=== PATIENT | male | born 1950 ===

== ENCOUNTER 2016-10-17 12:32 | Emergency (ER) | payer MEDICAID ==
[2016-10-17] MEDS ORDERED: Oxycodone/Acetaminophen 5/325 mg Tab PO STA (13:00)
[2016-10-17] MEDS ORDERED: Lidocaine 5% Patch TD STA (13:00)
--- NOTE | 2016-10-17 13:03 | C.PDOC ---
History Of Present Illness 66 year old male who presents to the ER with a complaint of lower back pain that radiates to the right leg for the past 4 days. Patient reports having an accident 20 years ago to the same area that required surgery, however, he declined it. Patient states he has had only 2 minor episodes of pain since then that quickly resolved themselves. Denies any dysuria, weakness, or numbness. Time Seen by Provider: 10/17/16 12:59 Chief Complaint (Nursing): Back Pain History Per: Patient History/Exam Limitations: no limitations Onset/Duration Of Symptoms: Days Current Symptoms Are (Timing): Still Present Quality Of Discomfort: Unable To Describe Previous Symptoms: Prior Injury Associated Symptoms: None Exacerbating Factor(s): Other (Walking) Recent travel outside of the [place]: No Past Medical History Reviewed: Historical Data, Nursing Documentation, Vital Signs Vital Signs: Last Vital Signs Temp 97.6 F 10/17/16 13:39 Pulse 63 10/17/16 13:39 Resp 18 10/17/16 13:39 BP 209/91 H 10/17/16 13:39 Pulse Ox 100 10/17/16 13:39 - Medical History PMH: Asthma, HTN Surgical History: No Surg Hx Family History: States: Unknown Family Hx - Social History Hx Alcohol Use: Yes Hx Substance Use: No Review Of Systems Genitourinary: Negative for: Dysuria, Incontinence, Hematuria Musculoskeletal: Positive for: Back Pain, Leg Pain Neurological: Negative for: Weakness, Numbness Physical Exam - Physical Exam Appears: Non-toxic Skin: Normal Color, Warm, Dry Head: Atraumatic, Normacephalic Back: No CVA Tenderness, No Vertebral Tenderness, Paraspinal Tenderness (Right sided lumbar) Neurological/Psych: Oriented x3, Normal Speech, Normal Cognition ED Course And Treatment - Other Rad Lumbar spine x-ray X-Ray: Viewed By Me, Read By Radiologist Interpretation: PROCEDURE: Radiographs of the Lumbar Spine. HISTORY: low back pain. COMPARISON: None available. FINDINGS: BONES: Alignment appears satisfactory. No listhesis. Multilevel degenerative changes including prominent anterior osteophyte formation. Facet hypertrophy. No acute displaced fracture identified. DISC SPACES: Intervertebral disc space narrowing most prominent at L5-S1. OTHER FINDINGS: None. IMPRESSION: Degenerative changes. Progress Note: Lumbar spine x-ray ordered. Lidoderm patch applied. Percocet, Toradol, and Valium po ordered. Patient refused Toradol. On re-evaluation patient feels better and is stable to be d/c home with PMD follow up. Disposition - Disposition Referrals: Holly Rivera MD [Staff Provider] - Disposition: HOME/ ROUTINE Disposition Time: 13:52 Condition: STABLE Additional Instructions: Follow up with PMD within 1-2 days. Return to ED if feel worse. Prescriptions: Ibuprofen [Motrin Tab] 600 mg PO Q8 #30 tab oxyCODONE/Acetaminophen [Percocet 5/325 mg Tab] 1 tab PO QID PRN #20 tab PRN Reason: Pain diaZEpam [Valium] 2 mg PO TID #15 tab Instructions: Lumbar Radiculopathy (ED) Forms: [email or web address] (Maori) Print Language: TURKISH - Clinical Impression Clinical Impression: Lumbar radiculopathy - Scribe Statement The provider has reviewed the documentation as recorded by the Scribhadley Little All medical record entries made by the Scribe were at my direction and personally dictated by me. I have reviewed the chart and agree that the record accurately reflects my personal performance of the history, physical exam, medical decision making, and the department course for this patient. I have also personally directed, reviewed, and agree with the discharge instructions and disposition.
[2016-10-17] MEDS ORDERED: Oxycodone/Acetaminophen 5/325 mg Tab ONE (13:18)
[2016-10-17] MEDS ORDERED: Lidocaine 5% Patch TD ONE (13:18)
[2016-10-17 13:39] VITALS: BP 209/91; PULSE 63; RESP 18; TEMP 97.6; O2SAT 100
--- NOTE | 2016-10-17 14:25 | RAD ---
PROCEDURE: Radiographs of the Lumbar Spine. HISTORY: low back pain COMPARISON: None available. FINDINGS: BONES: Alignment appears satisfactory. No listhesis. Multilevel degenerative changes including prominent anterior osteophyte formation. Facet hypertrophy. No acute displaced fracture identified. DISC SPACES: Intervertebral disc space narrowing most prominent at L5-S1. OTHER FINDINGS: None. IMPRESSION: Degenerative changes.
== END 2016-10-17 14:08 | disposition home or self-care (01) ==
LOC: C.ER 12:32
DX: M54.16 Radiculopathy, lumbar region (principal)

== ENCOUNTER 2016-10-21 16:30 | Emergency (ER) | payer MEDICAID ==
[2016-10-21 16:43] VITALS: BP 209/95; PULSE 64; RESP 18; TEMP 97.4; O2SAT 97
--- NOTE | 2016-10-21 17:53 | C.PDOC ---
History Of Present Illness 10/21/2016 Fabian Rosales is a 66 y/o male whose PMH includes HTN and DM, presents to the ED complaining of low back pain that radiates down the right leg below the knee. Patient reports that due to the pain he is unable to ambulate normally or drive. Patient had been evaluated on 10/17/16 (4 days ago) in the ED, diagnosed with lumbar radiculopathy, and d/c home with benzodiazepine and Percocet medication. Patient notes the Percocet does not relieve the pain completely. He also states feeling anxious and nauseous with the pain. Patient denies fall, paresthesias, focal weakness, sensory deficit, fever, urinary retention or incontinence. Patient with full range of motion in affected extremity. Time Seen by Provider: 10/21/16 17:12 Chief Complaint (Nursing): Lower Extremity Problem/Injury History Per: Patient History/Exam Limitations: no limitations Onset/Duration Of Symptoms: Days Current Symptoms Are (Timing): Still Present Severity: Severe - Knee Currently Unable To: Other (ambulate normally ) Past Medical History Reviewed: Historical Data, Nursing Documentation, Vital Signs Vital Signs: Last Vital Signs Temp 97.4 F L 10/21/16 16:38 Pulse 64 10/21/16 16:38 Resp 18 10/21/16 16:38 BP 209/95 H 10/21/16 16:38 Pulse Ox 97 10/21/16 18:04 - Medical History PMH: Asthma, HTN Family History: States: Unknown Family Hx - Social History Hx Alcohol Use: Yes Hx Substance Use: No - Immunization History Hx Tetanus Toxoid Vaccination: No Hx Influenza Vaccination: No Hx Pneumococcal Vaccination: No Review Of Systems Except As Marked, All Systems Reviewed And Found Negative. Constitutional: Negative for: Fever Cardiovascular: Negative for: Chest Pain Respiratory: Negative for: Shortness of Breath Gastrointestinal: Positive for: Nausea. Negative for: Vomiting, Abdominal Pain Genitourinary: Negative for: Dysuria, Frequency Musculoskeletal: Positive for: Back Pain (lower back pain) Neurological: Negative for: Headache Psych: Positive for: Anxiety Physical Exam - Physical Exam Nose: Normal Cardiovascular: Rhythm Regular Respiratory: Normal Breath Sounds Gastrointestinal/Abdominal: Normal Exam Back: Normal Inspection Additional Physical Exam Comments: Constitutional: No acute distress. Head: Normocephalic. Atraumatic. Eyes: PERRL. ENT: Moist mucous membranes. Neck: Supple. Cardiovascular: Regular rate. Radial pulses 2+ bilaterally. Chest: No tenderness. Respiratory: Clear to auscultation bilaterally. GI: Soft. Nontender. Nondistended. Back: No CVA tenderness. No midline tenderness. Musculoskeletal: No tenderness or swelling of extremities. FROM. Skin: No rash. Neurologic: Alert, no focal deficit. Sensation on bilateral legs intact and in saddle area. Motor 5/5 x 4. ED Course And Treatment O2 Sat by Pulse Oximetry: 97 (room air) Pulse Ox Interpretation: Normal Medical Decision Making Medical Decision Makin10/21/2016 Impression: 66 y/o male with lower back pain that radiates down to the right leg. Plan: -- Urinalysis -- Toradol and Zofran -- Reassess and disposition Will discharge patient, stressed the importance of follow up for the patient's poorly controlled HTN, which is stable since last visit, and for further evaluation of his back pain. XR performed last visit, no further imaging indicated at this time. Disposition - Disposition Referrals: Holly Rivera MD [Staff Provider] - Disposition: HOME/ ROUTINE Disposition Time: 18:22 Condition: STABLE Prescriptions: Famotidine [Pepcid] 1 tab PO BID #14 tab Ibuprofen [Motrin] 600 mg PO Q6 #25 tab Methocarbamol [Robaxin-750] 1 tab PO Q8H #12 tablet Ondansetron ODT [Zofran ODT] 4 mg PO Q8 #12 odt Instructions: Lumbar Radiculopathy (ED) Forms: [employer] (Cuban) - Clinical Impression Clinical Impression: Lumbar radiculopathy - Scribe Statement The provider has reviewed the documentation as recorded by the Scribe 10/21/2016 Scribe Attestation: Neida Nair MD Scribe Attestation: All medical record entries made by the Scribe were at my direction and personally dictated by me. I have reviewed the chart and agree that the record accurately reflects my personal performance of the history, physical exam, medical decision making, and the department course for this patient. I have also personally directed, reviewed, and agree with the discharge instructions and disposition.
[2016-10-21 18:10] LABS: RBC URINE < 1 /hpf (0-3); URINE BILIRUBIN NEGATIVE (NEGATIVE); URINE BLOOD NEGATIVE (NEGATIVE); URINE COLOR Straw (YELLOW); URINE GLUCOSE (UA) NORMAL (Normal); URINE KETONE TRACE mg/dL (NEGATIVE); URINE LEUKOCYTE ESTERASE NEG Leu/uL (Negative); URINE PROTEIN NEGATIVE (NEGATIVE); URINE UROBILINOGEN NORMAL mg/dL (0.2-1.0); WBC URINE < 1 /hpf (0-5)
== END 2016-10-21 18:36 | disposition home or self-care (01) ==
LOC: C.ER 16:30
DX: M54.16 Radiculopathy, lumbar region (principal)
CPT/HCPCS: 81001; 96372; 99283; J1885

== ENCOUNTER 2016-11-03 16:23 | Emergency (ER) | payer MEDICAID ==
[2016-11-03 16:28] VITALS: RESP 20; TEMP 98.2
--- NOTE | 2016-11-03 16:33 | C.PDOC ---
History Of Present Illness 66M c/o left side abdominal pain intermittent for 10 days. +nausea no vomiting or diarrhea or fever or dysuria. reports taking tramadol for pain without relief. Time Seen by Provider: 11/03/16 16:32 Chief Complaint (Nursing): High Blood Pressure Past Medical History Vital Signs: Last Vital Signs Temp 98.2 F 11/03/16 16:26 Pulse 91 H 11/03/16 16:39 Resp 20 11/03/16 16:39 BP 155/94 H 11/03/16 16:39 Pulse Ox 100 11/03/16 18:36 - Medical History PMH: Asthma, HTN Family History: States: Other Other Family History: nc - Social History Hx Alcohol Use: Yes Hx Substance Use: No - Immunization History Hx Tetanus Toxoid Vaccination: No Hx Influenza Vaccination: No Hx Pneumococcal Vaccination: No Review Of Systems Constitutional: Negative for: Fever, Chills Cardiovascular: Negative for: Chest Pain Respiratory: Negative for: Cough, Shortness of Breath Gastrointestinal: Positive for: Nausea, Abdominal Pain. Negative for: Vomiting , Diarrhea, Melena, Hematochezia Genitourinary: Negative for: Dysuria Physical Exam - Physical Exam Appears: Non-toxic Skin: Warm, Dry Head: Atraumatic Nose: No Epistaxis Oral Mucosa: Moist Cardiovascular: Rhythm Regular Respiratory: No Decreased Breath Sounds, No Accessory Muscle Use, No Rales, No Rhonchi, No Wheezing Gastrointestinal/Abdominal: Bowel Sounds, Soft, Tenderness (diffuse mainly LLQ) , No Distention, No Guarding, No Rebound Neurological/Psych: Oriented x3, Other (no focal deficits) ED Course And Treatment - Laboratory Results Result Diagrams: 11/03/16 17:15 11/03/16 17:15 O2 Sat by Pulse Oximetry: 100 Medical Decision Making Medical Decision Making: ecg- nsr 87, non-specific t wave changes, no stemi 1834 pt now requesting to leave before CT done. risks of leaving were explained to him and it was explained he is leaving against medical advise. he refused to sign AMA paperwork. Disposition - Disposition Referrals: [facility] [Outside] Disposition: AGAINST MEDICAL ADVICE Disposition Time: 18:36 Condition: STABLE Instructions: Abdominal Pain (ED) Forms: Gen Discharge Inst Romanian, [employer] (Turkmen) Print Language: K[place]WAHILI - Clinical Impression Clinical Impression: Abdominal pain
[2016-11-03 16:40] VITALS: BP 155/94; PULSE 91
[2016-11-03] MEDS ORDERED: Sodium Chloride 0.9% 1,000 ML IV ONE (16:57)
[2016-11-03] MEDS ORDERED: Sodium Chloride 0.9% 1,000 ML ONE ×2 (17:17→17:24)
[2016-11-03 17:19] LABS: BASO # 0.1 K/uL (0.0-0.2); BASO % 0.7 % (0.0-2.0); EOS # 0.5 K/uL (0.0-0.7); EOS % 5.4 % (0.0-4.0); HEMATOCRIT 40.2 % (35.0-51.0); LYMPH # 2.2 K/uL (1.0-4.3); LYMPH % 23.1 % (20.0-40.0); MEAN CELL VOLUME 91.4 fL (80.0-94.0); MEAN CORPUSCULAR HEMOGLOBIN 31.3 pg (27.0-31.0); MEAN CORPUSCULAR HGB CONC 34.3 g/dL (33.0-37.0); MEAN PLATELET VOLUME 8.2 fL (7.2-11.7); MONO # 1.3 K/uL (0.0-0.8); MONO % 13.9 % (0.0-10.0); RED CELL DISTRIBUTION WIDTH 13.6 % (11.5-14.5); WHITE BLOOD COUNT 9.5 K/uL (4.8-10.8)
[2016-11-03] MEDS ORDERED: cefTRIAXone IV 1 gm in Dextros 50 ML IVPB ONE (17:24)
[2016-11-03 17:25] LABS: RBC URINE < 1 /hpf (0-3); URINE BACTERIA RARE (<OCC); URINE BILIRUBIN NEGATIVE (NEGATIVE); URINE BLOOD NEGATIVE (NEGATIVE); URINE COLOR Straw (YELLOW); URINE GLUCOSE (UA) NORMAL (Normal); URINE KETONE NEGATIVE (NEGATIVE); URINE LEUKOCYTE ESTERASE NEG Leu/uL (Negative); URINE PROTEIN NEGATIVE (NEGATIVE); URINE UROBILINOGEN NORMAL mg/dL (0.2-1.0); WBC URINE 1 /hpf (0-5)
[2016-11-03 17:27] VITALS: O2SAT 100
[2016-11-03 17:33] LABS: ALB/GLOB RATIO 1.5 (1.0-2.1); BILIRUBIN,TOTAL 0.4 mg/dL (0.2-1.3); CALCIUM 9.4 mg/dl (8.6-10.4); POTASSIUM 4.5 mmol/L (3.6-5.2); TOTAL PROTEIN 6.5 g/dL (6.3-8.3)
[2016-11-03 17:43] LABS: VENOUS BLOOD GAS BASE EXCESS 5.2 mmol/L (0.0-2.0); VENOUS BLOOD GAS PCO2 59 mmHg (40-60); VENOUS BLOOD PH 7.35 (7.32-7.43)
== END 2016-11-03 18:55 | disposition left against medical advice (07) ==
LOC: C.ER 16:23
DX: R10.32 Left lower quadrant pain (principal)
CPT/HCPCS: 36415; 80053; 81001; 82803; 82948; 83690; 85025; 96361; 96374; 96375; 99285; J1885; J2405; J7040

== ENCOUNTER 2016-11-14 09:47 | Inpatient (IN) | payer MEDICAID ==
[2016-11-14] MEDS ORDERED: Sodium Chloride 0.9% 1,000 ML IV ONE ×2 (10:09→10:10)
[2016-11-14] MEDS ORDERED: Sodium Chloride 0.9% 2,000 ML ONE (10:23)
--- NOTE | 2016-11-14 10:50 | C.PDOC ---
History Of Present Illness 66 y/o male brought in by ambulance with c/o abdominal pain and vomiting. Patient recently seen in this ER last month for similar complaints and left against medical advice. Patient reports history of diabetes and HTN. Otherwise, denies fever, chills, chest pain, SOB, diarrhea, urinary symptoms, or other complaints. Time Seen by Provider: 11/14/16 09:53 Chief Complaint (Nursing): Abdominal Pain History Per: Patient History/Exam Limitations: no limitations Onset/Duration Of Symptoms: Days Current Symptoms Are (Timing): Still Present Location Of Pain/Discomfort: Diffuse Radiation Of Pain To:: None Quality Of Discomfort: "Pain" Associated Symptoms: Vomiting. denies: Fever, Chills, Diarrhea, Urinary Symptoms Recent travel outside of the [place]: No Past Medical History Reviewed: Historical Data, Nursing Documentation, Vital Signs Vital Signs: Last Vital Signs Temp 101.4 F H 11/14/16 14:20 Pulse 110 H 11/14/16 14:20 Resp 22 11/14/16 14:20 BP 154/78 H 11/14/16 14:20 Pulse Ox 99 11/14/16 17:36 - Medical History PMH: Asthma, HTN Family History: States: Unknown Family Hx - Social History Hx Alcohol Use: Yes Hx Substance Use: No - Immunization History Hx Tetanus Toxoid Vaccination: No Hx Influenza Vaccination: No Hx Pneumococcal Vaccination: No Review Of Systems Except As Marked, All Systems Reviewed And Found Negative. Constitutional: Negative for: Fever, Chills Cardiovascular: Negative for: Chest Pain Respiratory: Negative for: Cough, Shortness of Breath, Wheezing Gastrointestinal: Positive for: Vomiting, Abdominal Pain. Negative for: Diarrhea Skin: Negative for: Rash Neurological: Negative for: Headache, Dizziness Physical Exam - Physical Exam Appears: Non-toxic, No Acute Distress Skin: Normal Color, Warm, Dry Head: Atraumatic, Normacephalic Oral Mucosa: Moist Chest: Symmetrical Cardiovascular: Rhythm Regular (tachy) Respiratory: Normal Breath Sounds, No Rales, No Rhonchi, No Wheezing Gastrointestinal/Abdominal: Soft, No Tenderness Back: Normal Inspection Extremity: Normal ROM, Capillary Refill (< 2 sec.) Neurological/Psych: Oriented x3, Normal Speech, Normal Cognition ED Course And Treatment - Laboratory Results Result Diagrams: 11/14/16 10:57 11/14/16 10:57 Lab Interpretation: Abnormal ECG: Interpreted By Me ECG Rhythm: Sinus Tachycardia Rate From EC O2 Sat by Pulse Oximetry: 99 (RA) Pulse Ox Interpretation: Normal - Radiology CXR: Viewed By Me, Read By Radiologist - Other Rad No standard instances Interpretation: IMPRESSION: Suspicious for right middle lobe pneumonia. Blunting of the right costophrenic angle could be due to small pleural effusion. - CT Scan/US No standard instances Other Rad Studies (CT/US): Read By Radiologist, Radiology Report Reviewed CT/US Interpretation: FINDINGS: LOWER THORAX: There are foci of airspace consolidation associated with adjacent infiltrate at the right middle lobe suspicious for pneumonia. There is a small right pleural effusion. LIVER: Unremarkable. No gross lesion or ductal dilatation. GALLBLADDER AND BILE DUCTS : The gallbladder is mildly distended. No CT evidence of acute cholecystitis. PANCREAS: Unremarkable. No gross lesion or ductal dilatation. SPLEEN: Unremarkable. ADRENALS: Unremarkable. No mass. KIDNEYS AND URETERS: Unremarkable. No hydronephrosis. No solid mass. VASCULATURE: Unremarkable. No aortic aneurysm. BOWEL: No obstruction. No gross mural thickening. Mild constipation is noted. APPENDIX: No evidence of appendicitis. PERITONEUM: Unremarkable. No free fluid. No free air. LYMPH NODES: Unremarkable. No enlarged lymph nodes. BLADDER: Nxqz-fw-keescjgj circumferential urinary bladder wall thickening. REPRODUCTIVE: Czkbma-bb-fhilklquyy enlarged prostate. BONES: No acute fracture. OTHER FINDINGS: None. IMPRESSION: Foci of airspace consolidation and infiltrates noted at the right middle lobe associated with small right pleural effusion likely representing pneumonia. No evidence of nephrolithiasis or hydronephrosis. Mild to moderate urinary bladder wall thickening. Moderately enlarged prostate. Mild constipation. Progress Note: Treated with Pepcid, Zofran, morphine ivp, and IVFs. Bloodwork, UA, CxR, and CT abdomen/pelvis ordered. Treated with ativan IV for agitiation. Treated with rocephin and zithromax IV. Treated with labatolol 20 mg IV for hypertension. Additional Ativan 1 mg IV for aggitation. Tylenol 650 mg PO for fever. On re-evaluation lungs clear Reassessment Condition: Improved - Physician Consult Information Physician Contacted: Roberth Reid Outcome Of Conversation: admit Medical Decision Making Medical Decision Making: Patients daughter call and reported that patient was recently discharged from [facility] [place] pain On re-evaluation lungs clear, abdomen soft Disposition Discussed With DrJuan: Allen Reid Doctor Will See Patient In The: Hospital - Disposition Disposition: HOSPITALIZED Disposition Time: 13:30 Condition: STABLE - POA Present On Arrival: None - Clinical Impression Clinical Impression: Vomiting, Abdominal pain, Pneumonia - 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 - Scribe Statement The provider has reviewed the documentation as recorded by the Scribe SM All medical record entries made by the Scribe were at my direction and personally dictated by me. I have reviewed the chart and agree that the record accurately reflects my personal performance of the history, physical exam, medical decision making, and the department course for this patient. I have also personally directed, reviewed, and agree with the discharge instructions and disposition. Decision To Admit - Pt Status Changed To: Hospital Disposition Of: Inpatient - Admit Certification Admit to Inpatient:: After my assessment, the patient will require hospitalization for at least two midnights. This is because of the severity of symptoms shown, intensity of services needed, and/or the medical risk in this patient being treated as an outpatient. - InPatient: Physician Admission Certification:: Pneumonia. Tachycardia. Hypertension - . Bed Request Type: Regular Admitting Physician: Allen Reid Patient Diagnosis: Vomiting, Abdominal pain, Pneumonia
[2016-11-14 11:05] LABS: BASO % 0.2 % (0.0-2.0); EOS # 0.1 K/uL (0.0-0.7); EOS % 0.7 % (0.0-4.0); HEMATOCRIT 42.2 % (35.0-51.0); LYMPH # 0.8 K/uL (1.0-4.3); LYMPH % 3.9 % (20.0-40.0); MEAN CELL VOLUME 90.7 fL (80.0-94.0); MEAN CORPUSCULAR HEMOGLOBIN 30.4 pg (27.0-31.0); MEAN CORPUSCULAR HGB CONC 33.5 g/dL (33.0-37.0); MEAN PLATELET VOLUME 7.9 fL (7.2-11.7); MONO # 1.4 K/uL (0.0-0.8); PLATELET COUNT 273 K/uL (130-400); RED CELL DISTRIBUTION WIDTH 13.1 % (11.5-14.5)
[2016-11-14] MEDS ORDERED: Morphine 4 MG/ML VIAL ONE (11:07)
[2016-11-14 11:12] LABS: CHLORIDE 95 mmol/L (98-107); POTASSIUM 4.4 mmol/L (3.6-5.2); SODIUM 136 mmol/L (132-148)
[2016-11-14 11:13] LABS: WHITE BLOOD COUNT 19.6 K/uL (4.8-10.8)
[2016-11-14 11:14] LABS: ALB/GLOB RATIO 1.4 (1.0-2.1); ALKALINE PHOSPHATASE 60 U/L (38-126); AST/SGOT 21 U/L (17-59); BILIRUBIN,TOTAL 1.4 mg/dL (0.2-1.3); BLOOD UREA NITROGEN 8 mg/dL (9-20); CARBON DIOXIDE 28 mmol/L (22-30); GFR AFRICAN-AMERICAN > 60; TOTAL PROTEIN 7.5 g/dL (6.3-8.3)
[2016-11-14 11:15] LABS: ALT/SGPT 32 U/L (21-72); CALCIUM 9.3 mg/dl (8.6-10.4); GLUCOSE,RANDOM 213 mg/dL (75-110)
[2016-11-14 11:29] LABS: RBC URINE < 1 /hpf (0-3); URINE BACTERIA RARE (<OCC); URINE BILIRUBIN NEGATIVE (NEGATIVE); URINE BLOOD NEGATIVE (NEGATIVE); URINE COLOR Yellow (YELLOW); URINE GLUCOSE (UA) 1+ mg/dL (Normal); URINE HYALINE CAST 0-2 /lpf (0-2); URINE KETONE 1+ mg/dL (NEGATIVE); URINE LEUKOCYTE ESTERASE 1+ Leu/uL (Negative); URINE PROTEIN NEGATIVE (NEGATIVE); WBC URINE 1 /hpf (0-5)
--- NOTE | 2016-11-14 12:17 | CT ---
PROCEDURE: CT Abdomen and Pelvis without intravenous contrast HISTORY: Pain COMPARISON: None. TECHNIQUE: Axial and reformatted coronal and sagittal CT images of the abdomen and pelvis were obtained without IV or oral contrast administration.. Contrast Dose: 0 Radiation dose: Total exam DLP = 349.35 mGy-cm. This CT exam was performed using one or more of the following dose reduction techniques: Automated exposure control, adjustment of the mA and/or kV according to patient size, and/or use of iterative reconstruction technique. FINDINGS: LOWER THORAX: There are foci of airspace consolidation associated with adjacent infiltrate at the right middle lobe suspicious for pneumonia. There is a small right pleural effusion. LIVER: Unremarkable. No gross lesion or ductal dilatation. GALLBLADDER AND BILE DUCTS: The gallbladder is mildly distended. No CT evidence of acute cholecystitis. PANCREAS: Unremarkable. No gross lesion or ductal dilatation. SPLEEN: Unremarkable. ADRENALS: Unremarkable. No mass. KIDNEYS AND URETERS: Unremarkable. No hydronephrosis. No solid mass. VASCULATURE: Unremarkable. No aortic aneurysm. BOWEL: No obstruction. No gross mural thickening. Mild constipation is noted. APPENDIX: No evidence of appendicitis. PERITONEUM: Unremarkable. No free fluid. No free air. LYMPH NODES: Unremarkable. No enlarged lymph nodes. BLADDER: Tvnw-mk-jvqfixcy circumferential urinary bladder wall thickening. REPRODUCTIVE: Vzygeb-xu-lierzvfhca enlarged prostate. BONES: No acute fracture. OTHER FINDINGS: None. IMPRESSION: Foci of airspace consolidation and infiltrates noted at the right middle lobe associated with small right pleural effusion likely representing pneumonia. No evidence of nephrolithiasis or hydronephrosis. Mild to moderate urinary bladder wall thickening. Moderately enlarged prostate. Mild constipation.
--- NOTE | 2016-11-14 12:21 | RAD ---
PROCEDURE: CHEST RADIOGRAPH, 1 VIEW HISTORY: Cough r/o CHF COMPARISON: None available. FINDINGS: LUNGS: Focal infiltrate and small opacity seen at the right middle lobe suspicious for pneumonia. PLEURA: Blunting of the right costophrenic angle. CARDIOVASCULAR: Normal. OSSEOUS STRUCTURES: No significant abnormalities. VISUALIZED UPPER ABDOMEN: Normal. OTHER FINDINGS: None. IMPRESSION: Suspicious for right middle lobe pneumonia. Blunting of the right costophrenic angle could be due to small pleural effusion.
[2016-11-14 12:22] LABS: NEUTROPHIL 88 % (50-75); TOTAL CELLS COUNTED 100
[2016-11-14] MEDS ORDERED: cefTRIAXone IV 1 gm in Dextros 50 ML IV ONE (12:59)
[2016-11-14] MEDS ORDERED: Azithromycin 500mg/250ML NS 500 MG/250 ML BAG IV ONE (13:00)
[2016-11-14] MEDS ORDERED: Labetalol 25mg/5ml Syringe IV STA (13:20)
[2016-11-14] MEDS ORDERED: cefTRIAXone IV 1 gm in Dextros 50 ML IVPB ONE (13:36)
[2016-11-14] MEDS ORDERED: Labetalol 25mg/5ml Syringe ONE (13:36)
[2016-11-14] MEDS ORDERED: Azithromycin 500mg/250ML NS 500 MG/250 ML BAG IVPB ONE (14:14)
--- NOTE | 2016-11-14 15:36 | CP.PCM.HP ---
History of Present Illness - History of Present Illness History of Present Illness: CC: Abdominal pain, nausea, and right leg pain HPI: Patient is a 66 y/o male with pmhx of DM, HTN, asthma, and increased PSA who presents to the ED for abdominal pain, right leg pain, and nausea. Patient was hospitalized at [facility] about 1 week ago for about 3 days for this same pain. According to patient's sister (who was spoken to over the phone), he was discharged only on a pain medication. Patient is a very poor historian. He is agitated and does not respond to many questions or responds " I don't know. " Patient's son is at bedside who helps provide some information. Patient lives alone, however, so son does not know details about what has been going on with his health. Patient says he has been having abdominal pain for about 2 weeks. This past week patient had a few episodes of vomiting and two episodes of vomiting today. Patient currently still feels nauseous. Patient is complaining of right leg pain which he has had for a while, but cannot quantify for how long. Patient keeps trying to get out of bed with his oxygen and pulling on his lines. Patient not cooperative. Patient says he needs to go to the bathroom but seems confused when I explain to him to urinate in the urinal container. Son and I help patient urinate in container. Patient admits to having pain with urination. Patient will not lay flat and keeps moving around the bed. Patient denies having any fever, chills, cough, diarrhea, constipation, or sick contacts. PMD: Dr. Singh PMHx: DM, HTN, asthma, and increased PSA, family denies that patient has ever had heart problems including heart attack and stroke Psurg: Famhx: son has htn and diabetes Social: as per son patient smokes cigarettes, patient denies drugs and alcohol Home Meds: Pantoprazole 40mg PO daily Metformin HCL 500mg PO q12h HCTZ 12.5mg PO daily Oxycodone HCL tab 10mg PO q6h PRN Xanax 1mg PO daily Lisinopril 20mg daily Amylodipine 10mg PO daily Flomax 0.4mg PO daily Ventolin inhaler Motrin 600mg PO TID Present on Admission - Present on Admission Any Indicators Present on Admission: No History of DVT/PE: No History of Uncontrolled Diabetes: Yes Urinary Catheter: No Decubitus Ulcer Present: No Review of Systems - Review of Systems Systems not reviewed;Unavailable: Uncooperative, Language Barrier - Constitutional Constitutional: absent: Chills, Fever - EENT Nose/Mouth/Throat: absent: Nasal Congestion, Sore Throat - Cardiovascular Cardiovascular: absent: Chest Pain, Dyspnea - Respiratory Respiratory: absent: Cough - Gastrointestinal Gastrointestinal: Abdominal Pain. absent: Constipation, Diarrhea - Genitourinary Genitourinary: Difficulty Urinating, Dysuria, Urinary Hesitance - Musculoskeletal Musculoskeletal: Back Pain. absent: Joint Swelling, Muscle Weakness - Integumentary Integumentary: absent: Changing Lesions - Psychiatric Psychiatric: Confusion - Hematologic/Lymphatic Hematologic: absent: Easy Bleeding, Easy Bruising Past Patient History - Past Social History Smoking Status: Light Smoker < 10 Cigarettes Daily - CARDIAC Hx Hypertension: Yes - PULMONARY Hx Asthma: Yes - ENDOCRINE/METABOLIC Hx Diabetes Mellitus Type 2: Yes - MUSCULOSKELETAL/RHEUMATOLOGICAL Hx Back Pain: Yes - PSYCHIATRIC Hx Substance Use: No - SURGICAL HISTORY Hx Surgeries: No - ANESTHESIA Hx Anesthesia: No Hx Anesthesia Reactions: No Meds Allergies/Adverse Reactions: Allergies Allergy/AdvReac Type Severity Reaction Status Date / Time No Known Allergies Allergy Verified 11/14/16 09:56 Physical Exam - Constitutional Appears: Non-toxic, Agitated, Confused - Head Exam Head Exam: ATRAUMATIC, NORMAL INSPECTION, NORMOCEPHALIC - Eye Exam Eye Exam: EOMI, Normal appearance - ENT Exam ENT Exam: Mucous Membranes Moist - Neck Exam Neck exam: Positive for: Normal Inspection. Negative for: Tenderness - Respiratory Exam Respiratory Exam: Wheezes, NORMAL BREATHING PATTERN. absent: Rhonchi - Cardiovascular Exam Cardiovascular Exam: Tachycardia, REGULAR RHYTHM - GI/Abdominal Exam GI & Abdominal Exam: Normal Bowel Sounds, Soft Additional comments: left ecchymosis on abdomen - Extremities Exam Extremities exam: Positive for: full ROM, normal inspection. Negative for: pedal edema - Neurological Exam Neurological exam: Alert - Psychiatric Exam Psychiatric exam: Agitated, Anxious - Skin Skin Exam: Intact, Normal Color, Warm Results - Vital Signs Recent Vital Signs: Last Vital Signs Temp 101.4 F H 11/14/16 14:20 Pulse 110 H 11/14/16 14:20 Resp 22 11/14/16 14:20 BP 154/78 H 11/14/16 14:20 Pulse Ox 94 L 11/14/16 14:20 - Labs Result Diagrams: 11/14/16 10:57 11/14/16 10:57 Labs: Laboratory Results - last 24 hr 11/14/16 11/14/16 11/14/16 10:57 10:57 10:57 WBC 19.6 H D RBC 4.65 Hgb 14.1 Hct 42.2 MCV 90.7 MCH 30.4 MCHC 33.5 RDW 13.1 Plt Count 273 MPV 7.9 Neut % (Auto) 88.2 H Lymph % (Auto) 3.9 L [place] % (Auto) 7.0 Eos % (Auto) 0.7 Baso % (Auto) 0.2 Neut # 17.3 H Lymph # 0.8 L [place] # 1.4 H Eos # 0.1 Baso # 0.0 Neutrophils % (Manual) 88 H Lymphocytes % (Manual) 5 L Monocytes % (Manual) 7 Platelet Estimate Normal RBC Morphology Normal Sodium 136 Potassium 4.4 Chloride 95 L Carbon Dioxide 28 Anion Gap 17 BUN 8 L Creatinine 1.0 Est GFR ( Amer) > 60 Est GFR (Non-Af Amer) > 60 Random Glucose 213 H Lactic Acid Calcium 9.3 Total Bilirubin 1.4 H AST 21 ALT 32 Alkaline Phosphatase 60 CK-MB (Mass) 1.57 Troponin I < 0.0120 Total Protein 7.5 Albumin 4.3 Globulin 3.1 Albumin/Globulin Ratio 1.4 Lipase 34 Urine Color Yellow Urine Clarity Clear Urine pH 7.0 Ur Specific [place] 1.011 Urine Protein Negative Urine Glucose (UA) 1+ H Urine Ketones 1+ H Urine Blood Negative Urine Nitrate Negative Urine Bilirubin Negative Urine Urobilinogen 2.0 Ur Leukocyte Esterase 1+ H Urine WBC (Auto) 1 Urine RBC (Auto) < 1 Ur Squamous Epith Cells 1 Urine Bacteria Rare Hyaline Casts 0-2 11/14/16 11:20 WBC RBC Hgb Hct MCV MCH MCHC RDW Plt Count MPV Neut % (Auto) Lymph % (Auto) [place] % (Auto) Eos % (Auto) Baso % (Auto) Neut # Lymph # [place] # Eos # Baso # Neutrophils % (Manual) Lymphocytes % (Manual) Monocytes % (Manual) Platelet Estimate RBC Morphology Sodium Potassium Chloride Carbon Dioxide Anion Gap BUN Creatinine Est GFR ( Amer) Est GFR (Non-Af Amer) Random Glucose Lactic Acid 1.0 Calcium Total Bilirubin AST ALT Alkaline Phosphatase CK-MB (Mass) Troponin I Total Protein Albumin Globulin Albumin/Globulin Ratio Lipase Urine Color Urine Clarity Urine pH Ur Specific [place] Urine Protein Urine Glucose (UA) Urine Ketones Urine Blood Urine Nitrate Urine Bilirubin Urine Urobilinogen Ur Leukocyte Esterase Urine WBC (Auto) Urine RBC (Auto) Ur Squamous Epith Cells Urine Bacteria Hyaline Casts Assessment & Plan - Assessment and Plan (Free Text) Assessment: 1. Sepsis secondary to right middle lobe pneumonia -Rocephin 1 mg iv daily -Azithromycin 500 mg IV daily -stat Rapid influenza -urine legionella AG -urine strep pneumo AG -serum mycoplasma IgM and IgG 2. Possible UTI -urine culture -UA showed: 1+ gluc, 1+ketones, 1+leuk est 3. Possible Gastroparesis -CT abd/ pelvis showed no acute pathology, did show mild constipation -Colace 100 mg po TID -GI Dr. Stallings consulted, help appreciated 4. Enlarged Prostate -PSA -Flomax .4 mg -Urology, 5. DM2 -HgA1C -Lipid Panel -TSH -T4 -Metformin 500 mg po BID -Regular ISS -Accuchecks ACHS -Dietary diabetic counseling 6. HTN -Lisinopril 10 mg po daily -Norvasc 5 mg po daily 7. Diabetic Neuropathy -Gabapentin 300mg PO TID 8. GERD -protonix 40 mg po daily 9. Questionable Asthma -Atrovent q6h prn sob 10. Prophylaxis -protonix as above -heparin 5000 u sc q12h -b/l scds -heart healthy diabetic diet
[2016-11-14] MEDS: (Novolin R) Insulin Human Regular 100 units/ml vial SC SCH ×2 (17:44→21:56)
[2016-11-14] MEDS: Pantoprazole 40 mg EC Tab PO SCH (17:46)
--- NOTE | 2016-11-14 21:16 | CP.PCM.PN ---
Subjective - Date & Time of Evaluation Date of Evaluation: 11/14/16 Time of Evaluation: 07:00 - Subjective Subjective: dictated Objective - Vital Signs/Intake and Output Vital Signs (last 24 hours): Temp Pulse Resp BP Pulse Ox 101.4 F H 110 H 22 154/78 H 99 11/14/16 14:20 11/14/16 14:20 11/14/16 14:20 11/14/16 14:20 11/14/16 17:41 - Medications Medications: Current Medications Amlodipine Besylate (Norvasc) 5 mg PO DAILY [facility] Last Admin: 11/14/16 17:39 Dose: 5 mg Docusate Sodium (Colace) 100 mg PO TID [facility] Last Admin: 11/14/16 17:40 Dose: 100 mg Gabapentin (Neurontin) 300 mg PO TID [facility] Last Admin: 11/14/16 17:40 Dose: 300 mg Heparin Sodium (Porcine) (Heparin) 5,000 units SC Q12 [facility] Ceftriaxone Sodium 1 gm/ (Sodium Chloride) 100 mls @ 100 mls/hr IVPB DAILY [facility] Azithromycin 500 mg/ Sodium (Chloride) 250 mls @ 250 mls/hr IVPB DAILY [facility] Insulin Human Regular (Novolin R) 0 unit SC ACHS [facility] PRN Reason: Protocol Last Admin: 11/14/16 17:44 Dose: 2 unit Lisinopril (Zestril) 10 mg PO DAILY [facility] Last Admin: 11/14/16 17:40 Dose: 10 mg Metformin HCl (Glucophage) 500 mg PO BIDCC [facility] Last Admin: 11/14/16 17:40 Dose: 500 mg Pantoprazole Sodium (Protonix Ec Tab) 40 mg PO DAILY [facility] Last Admin: 11/14/16 17:46 Dose: 40 mg Tamsulosin HCl (Flomax) 0.4 mg PO Q24H [facility] Last Admin: 11/14/16 17:39 Dose: 0.4 mg - Labs Labs: 11/14/16 10:57 11/14/16 10:57
[2016-11-14] MEDS: Cefepime IV 2 gm in Dextrose 2 GM/100 ML BAG IVPB SCH (22:03)
--- NOTE | 2016-11-15 04:51 | CON ---
DATE: INFECTIOUS DISEASE CONSULTATION REQUESTED BY: Dr. Allen Reid. HISTORY OF PRESENT ILLNESS: This patient is a 66-year-old male, who is admitted with abdominal pain, nausea, and right leg pain, but I am told that he has pneumonia and the patient is very confused and he is anxious, however and looks incoherent. The son says that he was in the hospital for three days in [facility] and he is being monitored now. He does have a history of hypertension, asthma, high PSA, and family does not know much about him, looks like not able to get anything much from them. FAMILY HISTORY: Significant for diabetes and hypertension. SOCIAL HISTORY: The patient smokes cigarette and no drug abuse or alcohol abuse, but he appears to be in delirium, confused, and agitated. MEDICATIONS: His medications are pantoprazole, metformin, hydrochlorothiazide, oxycodone, Xanax, lisinopril, amlodipine, Flomax, Ventolin, and Motrin. REVIEW OF SYSTEMS: Unable to obtain with the patient. He is uncooperative. He has no chills and no fever reported, and he came in with abdominal pain, difficulty urinating, dysuria, and has pneumonia. PHYSICAL EXAMINATION: VITAL SIGNS: On examination, his T-max is 101.4, heart rate is 110, blood pressure is 154/78, respirations are 22, and saturation is 94%. HEENT: Head is atraumatic, normocephalic. He is, however, confused, agitated, jittering, and unsteady. Eye movements are unremarkable. Tongue is moist. He is not following much commands. NECK: However, supple. JVP is flat. LUNGS: Decreased breath sounds bilaterally. HEART: S1 and S2, is tachycardic. ABDOMEN: Soft and nontender. No guarding, no rigidity present. EXTREMITIES: Have no edema, clubbing, or cyanosis at this time. LABORATORY DATA: Labs are noted. White count is 19.6, hemoglobin 14.1, hematocrit 42.2, platelet count is 253. Sodium is 136, potassium 4.4, BUN is 8, creatinine is 1, and glucose is 213. He had abdominal CT and a chest CT and the chest x-ray showed suspicious for right middle lobe pneumonia, blunting of the right costophrenic angle, could be due to small effusions, he may have pneumonia. His abdominal and pelvic CAT scan shows [id number] urinary bladder wall thickening, moderately enlarged prostate and shows foci of airspace consolidation and infiltrates noted in the right middle lobe and no evidence of nephrolithiasis or hydronephrosis. At this time, we will do a septic workup and we will put him on Maxipime and Zithromax as he has been to the other hospital and we will follow with the residents and we will repeat labs tomorrow, also the lactate level if not done. UA was negative except for leukocytes of 1+. His benzodiazepines and opiates came out positive, may be he is on those. The flu is negative. Urine legionella is negative. So, at this time, we will continue with Maxipime and Zithromax as he comes from another hospital. Tracey Nguyễn MD
[2016-11-15] MEDS: (Novolin R) Insulin Human Regular 100 units/ml vial SC SCH ×6 (07:17→22:18)
[2016-11-15 07:56] LABS: BASO # 0.2 K/uL (0.0-0.2); BASO % 0.6 % (0.0-2.0); EOS # 0.1 K/uL (0.0-0.7); EOS % 0.5 % (0.0-4.0); HEMATOCRIT 38.4 % (35.0-51.0); LYMPH # 1.6 K/uL (1.0-4.3); LYMPH % 5.9 % (20.0-40.0); MEAN CELL VOLUME 91.2 fL (80.0-94.0); MEAN CORPUSCULAR HEMOGLOBIN 31.1 pg (27.0-31.0); MEAN CORPUSCULAR HGB CONC 34.2 g/dL (33.0-37.0); MEAN PLATELET VOLUME 8.6 fL (7.2-11.7); MONO # 2.4 K/uL (0.0-0.8); NRBC % 0.1 % (0.0-2.0); PLATELET COUNT 232 K/uL (130-400); RED CELL DISTRIBUTION WIDTH 13.3 % (11.5-14.5); WHITE BLOOD COUNT 27.2 K/uL (4.8-10.8)
[2016-11-15 08:12] LABS: CHLORIDE 100 mmol/L (98-107); POTASSIUM 3.7 mmol/L (3.6-5.2); SODIUM 141 mmol/L (132-148)
[2016-11-15 08:14] LABS: CARBON DIOXIDE 26 mmol/L (22-30); CHOLESTEROL 97 mg/dL (0-199); GFR AFRICAN-AMERICAN > 60
[2016-11-15 08:15] LABS: ALB/GLOB RATIO 1.3 (1.0-2.1); ALKALINE PHOSPHATASE 53 U/L (38-126); ALT/SGPT 30 U/L (21-72); AST/SGOT 20 U/L (17-59); BILIRUBIN,TOTAL 0.9 mg/dL (0.2-1.3); BLOOD UREA NITROGEN 8 mg/dL (9-20); GLUCOSE,RANDOM 176 mg/dL (75-110); TOTAL PROTEIN 6.5 g/dL (6.3-8.3)
[2016-11-15 08:47] LABS: NEUTROPHIL 72 % (50-75); TOTAL CELLS COUNTED 100
[2016-11-15 09:00] LABS: THYROID STIMULATING HORMONE 1.08 mIU/L (0.46-4.68)
--- NOTE | 2016-11-15 09:12 | CP.PCM.CON ---
<Melanie Garcia - Last Filed: 11/15/16 11:56> History of Present Illness - History of Present Illness History of Present Illness: GI Fellow PGY4 Consult Note This is a 66yM with pmhx of DM, HTN, asthma, and elevated PSA who presented to the ED for abdominal pain, right leg pain, and nausea. Patient is a very poor historian. Patient's son is at bedside who helps provide some information. Patient seems confused at times and in unable to understand or answer questions. Per review of EMR and son at bedside, pt has been feeling a little nausea for a few days with some cough, difficulty with urination. Pt's son reports BG is somewhat controlled with BG ranging from 150-190 at times, pt does take his metformin,. No prior hx of gastroparesis, no issues with diet in terms of nausea or vomiting. At the time of evaluation pt is complaining about right sided rib pain. [place] [facility] [place] Patient denies having any fever, chills, cough, diarrhea, constipation, or sick contacts. Denies prior endoscopic evaluation. ROS: A 12pt ROS was obtained and was negative except as above PmHx: DM, HTN, asthma, and elevated PSA PsHx: Denies FHx: HTN and diabetes SHx: Smokes cigarettes, patient denies drugs and alcohol Past Patient History - Past Medical History & Family History Past Medical History?: Yes - Past Social History Smoking Status: Light Smoker < 10 Cigarettes Daily - CARDIAC Hx Hypertension: Yes - PULMONARY Hx Asthma: Yes - ENDOCRINE/METABOLIC Hx Diabetes Mellitus Type 2: Yes - MUSCULOSKELETAL/RHEUMATOLOGICAL Hx Back Pain: Yes - PSYCHIATRIC Hx Substance Use: No - SURGICAL HISTORY Hx Surgeries: No - ANESTHESIA Hx Anesthesia: No Hx Anesthesia Reactions: No Meds Allergies/Adverse Reactions: Allergies Allergy/AdvReac Type Severity Reaction Status Date / Time No Known Allergies Allergy Verified 11/14/16 09:56 - Medications Medications: Current Medications Acetaminophen (Tylenol 325mg Tab) 650 mg PO Q6 PRN PRN Reason: Fever >100.4 F Amlodipine Besylate (Norvasc) 5 mg PO BID [facility] Docusate Sodium (Colace) 100 mg PO TID [facility] Last Admin: 11/14/16 17:40 Dose: 100 mg Finasteride (Proscar) 5 mg PO DAILY [facility] Gabapentin (Neurontin) 300 mg PO TID [facility] Last Admin: 11/14/16 17:40 Dose: 300 mg Heparin Sodium (Porcine) (Heparin) 5,000 units SC Q12 [facility] Azithromycin 500 mg/ Sodium (Chloride) 250 mls @ 250 mls/hr IVPB DAILY [facility] Cefepime HCl (Maxipime Iv 2 Gm Premix) 2 gm in 100 mls @ 100 mls/hr IVPB Q12H [facility] Last Admin: 11/14/16 22:03 Dose: 100 mls/hr Insulin Human Regular (Novolin R) 0 unit SC ACHS [facility] PRN Reason: Protocol Last Admin: 11/14/16 21:56 Dose: Not Given Ipratropium Forman (Atrovent) 0.5 mg IH RQ6 PRN PRN Reason: Shortness of Breath Lisinopril (Zestril) 10 mg PO DAILY [facility] Last Admin: 11/14/16 17:40 Dose: 10 mg [facility] Last Admin: 11/15/16 08:11 Dose: 500 mg Pantoprazole Sodium (Protonix Ec Tab) 40 mg PO DAILY [facility] Last Admin: 11/14/16 17:46 Dose: 40 mg Saccharomyces Boulardii (Florastor) 250 mg PO BID [facility] Tamsulosin HCl (Flomax) 0.4 mg PO Q24H [facility] Last Admin: 11/14/16 17:39 Dose: 0.4 mg Physical Exam - Constitutional Appears: No Acute Distress, Older Than Stated Age, Confused - Head Exam Head Exam: ATRAUMATIC, NORMAL INSPECTION, NORMOCEPHALIC - Eye Exam Eye Exam: EOMI, Normal appearance, PERRL Pupil Exam: PERRL - ENT Exam ENT Exam: Mucous Membranes Moist, Normal Exam - Neck Exam Neck exam: Positive for: Normal Inspection - Respiratory Exam Respiratory Exam: Rhonchi Additional comments: TTP Right ribcage - Cardiovascular Exam Cardiovascular Exam: RRR, +S1, +S2 - GI/Abdominal Exam GI & Abdominal Exam: Normal Bowel Sounds, Soft. absent: Distended, Firm, Organomegaly, Rigid, Tenderness Additional comments: no RUQ TTP, pain on the lower right ribcage - Rectal Exam Rectal Exam: Deferred - Extremities Exam Extremities exam: Positive for: normal inspection. Negative for: pedal edema - Back Exam Back exam: NORMAL INSPECTION - Neurological Exam Neurological exam: Alert - Psychiatric Exam Psychiatric exam: Agitated - Skin Skin Exam: Dry, Intact, Normal Color, Warm Results - Vital Signs Recent Vital Signs: Last Vital Signs Temp 98.2 F 11/15/16 05:16 Pulse 106 H 11/15/16 05:16 Resp 20 11/15/16 00:30 BP 165/92 H 11/15/16 00:30 Pulse Ox 95 11/15/16 00:30 - Labs Result Diagrams: 11/15/16 07:48 11/15/16 07:48 Labs: Laboratory Results - last 24 hr 11/14/16 11/14/16 11/14/16 10:57 10:57 10:57 WBC 19.6 H D RBC 4.65 Hgb 14.1 Hct 42.2 MCV 90.7 MCH 30.4 MCHC 33.5 RDW 13.1 Plt Count 273 MPV 7.9 Neut % (Auto) 88.2 H Lymph % (Auto) 3.9 L Charles % (Auto) 7.0 Eos % (Auto) 0.7 Baso % (Auto) 0.2 Neut # 17.3 H Lymph # 0.8 L Charles # 1.4 H Eos # 0.1 Baso # 0.0 Neutrophils % (Manual) 88 H Band Neutrophils % Lymphocytes % (Manual) 5 L Monocytes % (Manual) 7 Platelet Estimate Normal RBC Morphology Normal Sodium 136 Potassium 4.4 Chloride 95 L Carbon Dioxide 28 Anion Gap 17 BUN 8 L Creatinine 1.0 Est GFR ( Amer) > 60 Est GFR (Non-Af Amer) > 60 POC Glucose (mg/dL) Random Glucose 213 H Hemoglobin A1c Lactic Acid Calcium 9.3 Total Bilirubin 1.4 H AST 21 ALT 32 Alkaline Phosphatase 60 CK-MB (Mass) 1.57 Troponin I < 0.0120 Total Protein 7.5 Albumin 4.3 Globulin 3.1 Albumin/Globulin Ratio 1.4 Triglycerides Cholesterol LDL Cholesterol Direct HDL Cholesterol Lipase 34 Free T4 TSH 3rd Generation Urine Color Yellow Urine Clarity Clear Urine pH 7.0 Ur Specific [place] 1.011 Urine Protein Negative Urine Glucose (UA) 1+ H Urine Ketones 1+ H Urine Blood Negative Urine Nitrate Negative Urine Bilirubin Negative Urine Urobilinogen 2.0 Ur Leukocyte Esterase 1+ H Urine WBC (Auto) 1 Urine RBC (Auto) < 1 Ur Squamous Epith Cells 1 Urine Bacteria Rare Hyaline Casts 0-2 Urine Opiates Screen Urine Methadone Screen Ur Barbiturates Screen Ur Phencyclidine Scrn Ur Amphetamines Screen U Benzodiazepines Scrn U Oth Cocaine Metabols U Cannabinoids Screen Influenza Typ A,B (EIA) Ur L.pneumophila Ag 11/14/16 11/14/16 11/14/16 11:20 15:52 17:35 WBC RBC Hgb Hct MCV MCH MCHC RDW Plt Count MPV Neut % (Auto) Lymph % (Auto) Charles % (Auto) Eos % (Auto) Baso % (Auto) Neut # Lymph # Charles # Eos # Baso # Neutrophils % (Manual) Band Neutrophils % Lymphocytes % (Manual) Monocytes % (Manual) Platelet Estimate RBC Morphology Sodium Potassium Chloride Carbon Dioxide Anion Gap BUN Creatinine Est GFR ( Amer) Est GFR (Non-Af Amer) POC Glucose (mg/dL) 157 H Random Glucose Hemoglobin A1c Lactic Acid 1.0 Calcium Total Bilirubin AST ALT Alkaline Phosphatase CK-MB (Mass) Troponin I Total Protein Albumin Globulin Albumin/Globulin Ratio Triglycerides Cholesterol LDL Cholesterol Direct HDL Cholesterol Lipase Free T4 TSH 3rd Generation Urine Color Urine Clarity Urine pH Ur Specific [place] Urine Protein Urine Glucose (UA) Urine Ketones Urine Blood Urine Nitrate Urine Bilirubin Urine Urobilinogen Ur Leukocyte Esterase Urine WBC (Auto) Urine RBC (Auto) Ur Squamous Epith Cells Urine Bacteria Hyaline Casts Urine Opiates Screen Urine Methadone Screen Ur Barbiturates Screen Ur Phencyclidine Scrn Ur Amphetamines Screen U Benzodiazepines Scrn U Oth Cocaine Metabols U Cannabinoids Screen Influenza Typ A,B (EIA) Ur L.pneumophila Ag Negative 11/14/16 11/14/16 11/14/16 18:21 18:28 21:32 WBC RBC Hgb Hct MCV MCH MCHC RDW Plt Count MPV Neut % (Auto) Lymph % (Auto) Charles % (Auto) Eos % (Auto) Baso % (Auto) Neut # Lymph # Charles # Eos # Baso # Neutrophils % (Manual) Band Neutrophils % Lymphocytes % (Manual) Monocytes % (Manual) Platelet Estimate RBC Morphology Sodium Potassium Chloride Carbon Dioxide Anion Gap BUN Creatinine Est GFR ( Amer) Est GFR (Non-Af Amer) POC Glucose (mg/dL) 155 H Random Glucose Hemoglobin A1c Lactic Acid Calcium Total Bilirubin AST ALT Alkaline Phosphatase CK-MB (Mass) Troponin I Total Protein Albumin Globulin Albumin/Globulin Ratio Triglycerides Cholesterol LDL Cholesterol Direct HDL Cholesterol Lipase Free T4 TSH 3rd Generation Urine Color Urine Clarity Urine pH Ur Specific [place] Urine Protein Urine Glucose (UA) Urine Ketones Urine Blood Urine Nitrate Urine Bilirubin Urine Urobilinogen Ur Leukocyte Esterase Urine WBC (Auto) Urine RBC (Auto) Ur Squamous Epith Cells Urine Bacteria Hyaline Casts Urine Opiates Screen Positive Urine Methadone Screen Negative Ur Barbiturates Screen Negative Ur Phencyclidine Scrn Negative Ur Amphetamines Screen Negative U Benzodiazepines Scrn Positive U Oth Cocaine Metabols Negative U Cannabinoids Screen Negative Influenza Typ A,B (EIA) Negative for flu a/b Ur L.pneumophila Ag 11/15/16 11/15/16 11/15/16 07:09 07:48 07:48 WBC RBC Hgb Hct MCV MCH MCHC RDW Plt Count MPV Neut % (Auto) Lymph % (Auto) Charles % (Auto) Eos % (Auto) Baso % (Auto) Neut # Lymph # Charles # Eos # Baso # Neutrophils % (Manual) Band Neutrophils % Lymphocytes % (Manual) Monocytes % (Manual) Platelet Estimate RBC Morphology Sodium 141 Potassium 3.7 Chloride 100 Carbon Dioxide 26 Anion Gap 19 BUN 8 L Creatinine 1.0 Est GFR ( Amer) > 60 Est GFR (Non-Af Amer) > 60 POC Glucose (mg/dL) 195 H Random Glucose 176 H Hemoglobin A1c 6.6 H Lactic Acid Calcium 9.0 Total Bilirubin 0.9 AST 20 ALT 30 Alkaline Phosphatase 53 CK-MB (Mass) Troponin I Total Protein 6.5 Albumin 3.6 Globulin 2.9 Albumin/Globulin Ratio 1.3 Triglycerides 82 Cholesterol 97 LDL Cholesterol Direct 36 HDL Cholesterol 39 Lipase Free T4 TSH 3rd Generation 1.08 Urine Color Urine Clarity Urine pH Ur Specific [place] Urine Protein Urine Glucose (UA) Urine Ketones Urine Blood Urine Nitrate Urine Bilirubin Urine Urobilinogen Ur Leukocyte Esterase Urine WBC (Auto) Urine RBC (Auto) Ur Squamous Epith Cells Urine Bacteria Hyaline Casts Urine Opiates Screen Urine Methadone Screen Ur Barbiturates Screen Ur Phencyclidine Scrn Ur Amphetamines Screen U Benzodiazepines Scrn U Oth Cocaine Metabols U Cannabinoids Screen Influenza Typ A,B (EIA) Ur L.pneumophila Ag 11/15/16 11/15/16 07:48 07:48 WBC 27.2 H RBC 4.22 L Hgb 13.1 Hct 38.4 MCV 91.2 MCH 31.1 H MCHC 34.2 RDW 13.3 Plt Count 232 MPV 8.6 Neut % (Auto) 84.0 H Lymph % (Auto) 5.9 L Charles % (Auto) 9.0 Eos % (Auto) 0.5 Baso % (Auto) 0.6 Neut # 22.8 H Lymph # 1.6 Charles # 2.4 H Eos # 0.1 Baso # 0.2 Neutrophils % (Manual) 72 Band Neutrophils % 14 H* Lymphocytes % (Manual) 8 L Monocytes % (Manual) 6 Platelet Estimate Normal RBC Morphology Normal Sodium Potassium Chloride Carbon Dioxide Anion Gap BUN Creatinine Est GFR ( Amer) Est GFR (Non-Af Amer) POC Glucose (mg/dL) Random Glucose Hemoglobin A1c Lactic Acid Calcium Total Bilirubin AST ALT Alkaline Phosphatase CK-MB (Mass) Troponin I Total Protein Albumin Globulin Albumin/Globulin Ratio Triglycerides Cholesterol LDL Cholesterol Direct HDL Cholesterol Lipase Free T4 1.30 TSH 3rd Generation Urine Color Urine Clarity Urine pH Ur Specific [place] Urine Protein Urine Glucose (UA) Urine Ketones Urine Blood Urine Nitrate Urine Bilirubin Urine Urobilinogen Ur Leukocyte Esterase Urine WBC (Auto) Urine RBC (Auto) Ur Squamous Epith Cells Urine Bacteria Hyaline Casts Urine Opiates Screen Urine Methadone Screen Ur Barbiturates Screen Ur Phencyclidine Scrn Ur Amphetamines Screen U Benzodiazepines Scrn U Oth Cocaine Metabols U Cannabinoids Screen Influenza Typ A,B (EIA) Ur L.pneumophila Ag Assessment & Plan - Assessment and Plan (Free Text) Assessment: This is a 66yM with pmhx of DM, Diabetic Neuropathy, HTN, PSA elevated pw cough , nausea, right sided rib pain, dysuria for 1 week. 1. RML PNA 2. Leukocytes 3. DM, Diabetic Neuropathy 4. Nausea 5. Pleurisy/Costochondritis 6. AMS possible Delirium Plan: -Continue supportive care with IV abx for RML CAP -Right sided pain, likely from RML PNA, pain maybe pleurisy vs costochondritis, no abdominal pain -Nausea may be secondary to infection, pain medication -Pt tolerating regular diet with no abdominal pain or vomiting -No signs of gastroparesis at this time, HgbA1c 6.6 and pt tolerating diet, gastric emptying maybe slowed from acute elevations in BG and taking pain medication like opioids -No plan for endoscopic evaluation or gastric emptying study at this time due to infection, pt can follow up as outpt when medically improves -Outpt CRC screening -Please call with nay questions or concerns <Kendall Stallings - Last Filed: 11/15/16 16:38> Meds - Medications Medications: Current Medications Acetaminophen (Tylenol 325mg Tab) 650 mg PO Q6 PRN PRN Reason: Fever >100.4 F Amlodipine Besylate (Norvasc) 5 mg PO BID [facility] Last Admin: 11/15/16 10:58 Dose: 5 mg Benztropine Mesylate (Cogentin) 2 mg PO Q6 PRN PRN Reason: Extra Pyramidal Symptoms Diphenhydramine HCl (Benadryl) 50 mg PO Q6 PRN PRN Reason: Allergy symptoms Docusate Sodium (Colace) 100 mg PO TID [facility] Last Admin: 11/15/16 14:23 Dose: 100 mg Finasteride (Proscar) 5 mg PO DAILY [facility] Last Admin: 11/15/16 10:13 Dose: 5 mg Gabapentin (Neurontin) 300 mg PO TID [facility] Last Admin: 11/15/16 14:24 Dose: 300 mg Haloperidol (Haldol) 5 mg PO Q8 PRN PRN Reason: Moderate Agitation Haloperidol Lactate (Haldol) 5 mg IM Q8 PRN PRN Reason: Moderate Agitation Heparin Sodium (Porcine) (Heparin) 5,000 units SC Q12 [facility] Last Admin: 11/15/16 10:58 Dose: 5,000 units Azithromycin 500 mg/ Sodium (Chloride) 250 mls @ 250 mls/hr IVPB DAILY [facility] Last Admin: 11/15/16 10:07 Dose: 250 mls/hr Cefepime HCl (Maxipime Iv 2 Gm Premix) 2 gm in 100 mls @ 100 mls/hr IVPB Q12H [facility] Last Admin: 11/15/16 10:30 Dose: 100 mls/hr Sodium Chloride (Sodium Chloride 0.9%) 1,000 mls @ 100 mls/hr IV .Q10H [facility] Vancomycin/Sodium Chloride (Vancocin) 1 gm in 200 mls @ 166.7 mls/hr IVPB Q12H [facility] Stop: 11/20/16 17:01 Insulin Human Regular (Novolin R) 0 unit SC ACHS [facility] PRN Reason: Protocol Last Admin: 11/15/16 11:08 Dose: 4 unit Ipratropium Forman (Atrovent) 0.5 mg IH RQ6 PRN PRN Reason: Shortness of Breath Lisinopril (Zestril) 10 mg PO DAILY [facility] Last Admin: 11/15/16 10:14 Dose: 10 mg Lorazepam (Ativan) 1 mg PO Q6 PRN PRN Reason: Anxiety Metformin HCl (Glucophage) 500 mg PO BIDCC [facility] Last Admin: 11/15/16 08:11 Dose: 500 mg Pantoprazole Sodium (Protonix Ec Tab) 40 mg PO DAILY [facility] Last Admin: 11/15/16 10:14 Dose: 40 mg Saccharomyces Boulardii (Florastor) 250 mg PO BID [facility] Last Admin: 11/15/16 10:15 Dose: 250 mg Tamsulosin HCl (Flomax) 0.4 mg PO Q24H [facility] Last Admin: 11/14/16 17:39 Dose: 0.4 mg Trazodone HCl (Desyrel) 50 mg PO HS [facility] Results - Vital Signs Recent Vital Signs: Last Vital Signs Temp 98 F 11/15/16 13:10 Pulse 102 H 11/15/16 13:10 Resp 22 11/15/16 13:10 BP 140/78 11/15/16 13:10 Pulse Ox 98 11/15/16 13:10 - Labs Result Diagrams: 11/15/16 07:48 11/15/16 07:48 Labs: Laboratory Results - last 24 hr 11/14/16 11/14/16 11/14/16 15:52 17:35 18:21 WBC RBC Hgb Hct MCV MCH MCHC RDW Plt Count MPV Neut % (Auto) Lymph % (Auto) Charles % (Auto) Eos % (Auto) Baso % (Auto) Neut # Lymph # Charles # Eos # Baso # Neutrophils % (Manual) Band Neutrophils % Lymphocytes % (Manual) Monocytes % (Manual) Platelet Estimate RBC Morphology Sodium Potassium Chloride Carbon Dioxide Anion Gap BUN Creatinine Est GFR ( Amer) Est GFR (Non-Af Amer) POC Glucose (mg/dL) 157 H Random Glucose Hemoglobin A1c Calcium Total Bilirubin AST ALT Alkaline Phosphatase Total Protein Albumin Globulin Albumin/Globulin Ratio Triglycerides Cholesterol LDL Cholesterol Direct HDL Cholesterol Free T4 TSH 3rd Generation Urine Opiates Screen Positive Urine Methadone Screen Negative Ur Barbiturates Screen Negative Ur Phencyclidine Scrn Negative Ur Amphetamines Screen Negative U Benzodiazepines Scrn Positive U Oth Cocaine Metabols Negative U Cannabinoids Screen Negative Influenza Typ A,B (EIA) Ur L.pneumophila Ag Negative 11/14/16 11/14/16 11/15/16 18:28 21:32 07:09 WBC RBC Hgb Hct MCV MCH MCHC RDW Plt Count MPV Neut % (Auto) Lymph % (Auto) Charles % (Auto) Eos % (Auto) Baso % (Auto) Neut # Lymph # Charles # Eos # Baso # Neutrophils % (Manual) Band Neutrophils % Lymphocytes % (Manual) Monocytes % (Manual) Platelet Estimate RBC Morphology Sodium Potassium Chloride Carbon Dioxide Anion Gap BUN Creatinine Est GFR ( Amer) Est GFR (Non-Af Amer) POC Glucose (mg/dL) 155 H 195 H Random Glucose Hemoglobin A1c Calcium Total Bilirubin AST ALT Alkaline Phosphatase Total Protein Albumin Globulin Albumin/Globulin Ratio Triglycerides Cholesterol LDL Cholesterol Direct HDL Cholesterol Free T4 TSH 3rd Generation Urine Opiates Screen Urine Methadone Screen Ur Barbiturates Screen Ur Phencyclidine Scrn Ur Amphetamines Screen U Benzodiazepines Scrn U Oth Cocaine Metabols U Cannabinoids Screen Influenza Typ A,B (EIA) Negative for flu a/b Ur L.pneumophila Ag 11/15/16 11/15/16 11/15/16 07:48 07:48 07:48 WBC RBC Hgb Hct MCV MCH MCHC RDW Plt Count MPV Neut % (Auto) Lymph % (Auto) Charles % (Auto) Eos % (Auto) Baso % (Auto) Neut # Lymph # Charles # Eos # Baso # Neutrophils % (Manual) Band Neutrophils % Lymphocytes % (Manual) Monocytes % (Manual) Platelet Estimate RBC Morphology Sodium 141 Potassium 3.7 Chloride 100 Carbon Dioxide 26 Anion Gap 19 BUN 8 L Creatinine 1.0 Est GFR ( Amer) > 60 Est GFR (Non-Af Amer) > 60 POC Glucose (mg/dL) Random Glucose 176 H Hemoglobin A1c 6.6 H Calcium 9.0 Total Bilirubin 0.9 AST 20 ALT 30 Alkaline Phosphatase 53 Total Protein 6.5 Albumin 3.6 Globulin 2.9 Albumin/Globulin Ratio 1.3 Triglycerides 82 Cholesterol 97 LDL Cholesterol Direct 36 HDL Cholesterol 39 Free T4 1.30 TSH 3rd Generation 1.08 Urine Opiates Screen Urine Methadone Screen Ur Barbiturates Screen Ur Phencyclidine Scrn Ur Amphetamines Screen U Benzodiazepines Scrn U Oth Cocaine Metabols U Cannabinoids Screen Influenza Typ A,B (EIA) Ur L.pneumophila Ag 11/15/16 11/15/16 07:48 11:01 WBC 27.2 H RBC 4.22 L Hgb 13.1 Hct 38.4 MCV 91.2 MCH 31.1 H MCHC 34.2 RDW 13.3 Plt Count 232 MPV 8.6 Neut % (Auto) 84.0 H Lymph % (Auto) 5.9 L [place] % (Auto) 9.0 Eos % (Auto) 0.5 Baso % (Auto) 0.6 Neut # 22.8 H Lymph # 1.6 Charles # 2.4 H Eos # 0.1 Baso # 0.2 Neutrophils % (Manual) 72 Band Neutrophils % 14 H* Lymphocytes % (Manual) 8 L Monocytes % (Manual) 6 Platelet Estimate Normal RBC Morphology Normal Sodium Potassium Chloride Carbon Dioxide Anion Gap BUN Creatinine Est GFR ( Amer) Est GFR (Non-Af Amer) POC Glucose (mg/dL) 229 H Random Glucose Hemoglobin A1c Calcium Total Bilirubin AST ALT Alkaline Phosphatase Total Protein Albumin Globulin Albumin/Globulin Ratio Triglycerides Cholesterol LDL Cholesterol Direct HDL Cholesterol Free T4 TSH 3rd Generation Urine Opiates Screen Urine Methadone Screen Ur Barbiturates Screen Ur Phencyclidine Scrn Ur Amphetamines Screen U Benzodiazepines Scrn U Oth Cocaine Metabols U Cannabinoids Screen Influenza Typ A,B (EIA) Ur L.pneumophila Ag Attending/Attestation - Attestation I have personally seen and examined this patient.: Yes I have fully participated in the care of the patient.: Yes I have reviewed all pertinent clinical information: Yes Notes (Text): 11/15/16 16:33 I have seen and examined patient with GI fellow. Agree with above documentation with the following additions. In brief, this is a 66 year old male with history of DM, HTN, asthma who presents to hospital with complaint of nausea, productive cough, and lethargy for the past 4 days. He is currently being treated for right sided pneumonia. GI called for evaluation of persistent nausea. He describes symptoms throughout course of the day though denies vomiting, diarrhea, weight loss, rectal bleeding, or change in bowel habits. He describes a right sided chest tenderness worse on deep inspiration. No prior endoscopic evaluation. DM / HTN Asthma Cough, lethargy - pneumonia Nausea - likely multifactorial including active infectious process along with use of narcotic pain medication. HBA1C noted to be <7. - Diet as tolerated - Anti-emetic therapy PRN - Continue with antibiotic therapy as per medical team - Do not recommend any current endoscopic testing given active treatment of pulmonary disease. Patient would benefit from elective outpatient evaluation following resolution of acute symptoms. Will sign off case, please reconsult as necessary, thank you.
--- NOTE | 2016-11-15 09:53 | CT ---
PROCEDURE: CT HEAD WITHOUT CONTRAST HISTORY: change in mental status COMPARISON: None available. TECHNIQUE: Axial computed tomography images were obtained through the head/brain without intravenous contrast. Coronal and sagittal reconstructions were also acquired. Radiation dose: Total exam DLP = 1000 mGy-cm. FINDINGS: HEMORRHAGE: No intracranial hemorrhage seen. BRAIN: No intraparenchymal mass identified. There is ventricular and sulcal prominence, consistent with age related volume loss. Small Old lacunar infarcts noted in the bilateral external capsules and posterior limb left internal capsule. There are areas of periventricular white matter hypodensity, consistent with chronic small vessel ischemic changes. VENTRICLES: See above CALVARIUM: Intact PARANASAL SINUSES: Mild mucosal thickening bilateral ethmoid sinuses. Remainder of the Visualized paranasal sinuses are clear. MASTOID AIR CELLS: Visualized mastoid air cells are clear. OTHER FINDINGS: None. IMPRESSION: No mass, hemorrhage, or acute infarct identified.
--- NOTE | 2016-11-15 10:03 | PCM.PSYCH ---
Initial Psychiatric Evaluation - Initial Psychiatric Evaluation Type of Admission: Voluntary Legal Status: Capacity Chief Complaint (in patient's own words): I am feeling okay History of Present Illness and Precipitating Events: This is a 66 years old male, who currently lives with his family, was escorted to the ED in a disorganized state. the patient was consulted. As per the hospital charts and information from the family, patient has no past psychiatric history of any inpatient psychiatric hospitalization or any history of follow-up with any psychiatrist. However patient reports that he is feeling a little depressed and he is hearing whispers and he is seeing some shadows since few days. Patient appeared very disorganized and internally preoccupied. Patient was confused, irritable and agitated. As per the family, patient has been becoming increasingly irritable, that is why he was taken to the ED. Patient was found to be paranoid and delusional during the interview, however, patient denied any suicidal ideation, any homicidal ideation. As per the family patient has been abusing opiate pain medications and Xanax, unknown amounts recently. Current Medications: Active Medications Generic Name Dose Route Start Last Admin Trade Name Freq PRN Reason Stop Dose Admin Acetaminophen 650 mg 11/15/16 07:30 Tylenol 325mg Tab PO Q6 PRN Fever >100.4 F Amlodipine Besylate 5 mg 11/15/16 10:00 Norvasc PO BID D[facility] Docusate Sodium 100 mg 11/14/16 18:00 11/14/16 17:40 Colace PO 100 mg TID [facility] Administration Finasteride 5 mg 11/15/16 10:00 Proscar PO DAILY [facility] Gabapentin 300 mg 11/14/16 18:00 11/14/16 17:40 Neurontin PO 300 mg TID [facility] Administration Heparin Sodium (Porcine) 5,000 units 11/15/16 10:00 Heparin SC Q12 D[facility] Azithromycin 500 mg/ Sodium 250 mls @ 250 mls/hr 11/15/16 10:00 Chloride IVPB DAILY [facility] Cefepime HCl 2 gm in 100 mls @ 100 mls/hr 11/14/16 22:00 11/14/16 22:03 Maxipime Iv 2 Gm Premix IVPB 100 mls/hr Q12H [facility] Administration Insulin Human Regular 0 unit 11/14/16 16:30 11/14/16 21:56 Novolin R SC Not Given ACHS D[facility] Protocol Ipratropium [place] 0.5 mg 11/15/16 07:38 Atrovent IH RQ6 PRN Shortness of Breath Lisinopril 10 mg 11/14/16 14:45 11/14/16 17:40 Zestril PO 10 mg DAILY [facility] Administration Metformin HCl 500 mg 11/14/16 17:00 11/15/16 08:11 Glucophage PO 500 mg BIDCC [facility] Administration Pantoprazole Sodium 40 mg 11/14/16 16:30 11/14/16 17:46 Protonix Ec Tab PO 40 mg DAILY [facility] Administration Saccharomyces Boulardii 250 mg 11/15/16 10:00 Florastor PO BID D[facility] Tamsulosin HCl 0.4 mg 11/14/16 16:15 11/14/16 17:39 Flomax PO 0.4 mg Q24H [facility] Administration Past Psychiatric History - Past Psychiatric History Previous Treatment History: None Pertinent Medical Hx (Current Medical&Sleep Prob, Allergies): Allergies Allergy/AdvReac Type Severity Reaction Status Date / Time No Known Allergies Allergy Verified 11/14/16 09:56 ALPRAZolam [Xanax] 1 mg PO DAILY 11/14/16 Enalapril Maleate [Vasotec] 11/14/16 Gabapentin 300 mg PO TID 11/14/16 MetFORMIN 500 mg PO Q12H 11/14/16 Oxycodone HCl [Roxicodone] 10 mg PO Q6H PRN 11/14/16 Pantoprazole Sodium [Protonix] 40 mg PO DAILY 11/14/16 Toprol XL 11/14/16 hydroCHLOROthiazide [Microzide] 12.5 mg PO DAILY 11/14/16 Review of Systems - Review of Systems All systems: reviewed and no additional remarkable complaints except - Psychiatric Psychiatric: Anxiety, Auditory Hallucinations, Irritability, Visual Hallucinations Mental Status Examination - Personal Presentation Personal Presentation: Looks stated age - Affect Affect: Constricted - Motor Activity Motor Activity: Psychomotor Agitation - Reliability in Providing Information Reliability in Providing Information: Poor, due to alteration in thoughts, Poor , due to cognitve impairment - Speech Speech: Disorganized - Mood Mood: Depressed, Anxious - Formal Thought Process Formal Thought Process: Hallucinations, Delusions, Paranoia, Loosening of associations - Hallucinations/Delusions Hallucinations: Visual, Auditory Delusions: Persecution - Obsessions/Compulsions Obsessions: No Compulsions: No - Cognitive Functions Orientation: Person, Place Sensorium: Drowsy Attention/Concentration: Easily distracted Estimate of Intelligence: Below average Judgement: Imparied, as evidence by: Poor judgement, Imparied, as evidence by: Lack of insight into illness - Risk Risk: Diminished functioning - Strength & Assets Inventory Strength & Assets Inventory: Family support DSM 5 DX - DSM 5 DSM 5 Diagnosis: R/o Delirium opiate use disorder moderate sedative/hypnotic use disorder moderate - Recommended/Plan of Treatment Treatment Recommendations and Plan of Treatment: R/o Delirium Psychoeducation Supportive therapy, Trazodone 50 mg by mouth daily at bedtime haldol when necessary ativan when necessary Opiate use disorder moderate Monitor signs and symptoms Use [place] for abstinence Sedative/hypnotic use disorder moderate Monitor signs and symptoms Use [place] for abstinence - Smoking Cessation Smoking Cessation Initiated: No
[2016-11-15] MEDS: Azithromycin 500 MG in Sodium Chloride 0.9% 250 ML IVPB SCH (10:07)
[2016-11-15] MEDS: Pantoprazole 40 mg EC Tab PO SCH (10:14)
[2016-11-15] MEDS: Saccharomyces Boulardi 250 mg Cap PO SCH ×2 (10:15→18:01)
[2016-11-15] MEDS: Cefepime IV 2 gm in Dextrose 2 GM/100 ML BAG IVPB SCH ×2 (10:30→21:58)
--- NOTE | 2016-11-15 16:41 | CP.PCM.PN ---
<Matheus Chan - Last Filed: 11/15/16 18:41> Subjective - Date & Time of Evaluation Date of Evaluation: 11/15/16 Time of Evaluation: 16:22 - Subjective Subjective: PGY1 Note for Dr. Reid HPI: Patient seen and examined at bedside. Very agitated. Stating the CP took his pills. I was able to calm him down and he was resting comfortably when i left him. He states he is in no pain and just has problems sleeping. No chest pain or SOB. No N/V/D/C Objective - Vital Signs/Intake and Output Vital Signs (last 24 hours): Temp Pulse Resp BP Pulse Ox 98 F 102 H 22 140/78 98 11/15/16 13:10 11/15/16 13:10 11/15/16 13:10 11/15/16 13:10 11/15/16 13:10 Intake and Output: 11/15/16 11/15/16 06:59 18:59 Intake Total 200 Output Total 1700 Balance -1500 - Medications Medications: Current Medications Acetaminophen (Tylenol 325mg Tab) 650 mg PO Q6 PRN PRN Reason: Fever >100.4 F Amlodipine Besylate (Norvasc) 5 mg PO BID [facility] Last Admin: 11/15/16 10:58 Dose: 5 mg Benztropine Mesylate (Cogentin) 2 mg PO Q6 PRN PRN Reason: Extra Pyramidal Symptoms Diphenhydramine HCl (Benadryl) 50 mg PO Q6 PRN PRN Reason: Allergy symptoms Docusate Sodium (Colace) 100 mg PO TID [facility] Last Admin: 11/15/16 14:23 Dose: 100 mg Finasteride (Proscar) 5 mg PO DAILY [facility] Last Admin: 11/15/16 10:13 Dose: 5 mg Gabapentin (Neurontin) 300 mg PO TID [facility] Last Admin: 11/15/16 14:24 Dose: 300 mg Haloperidol (Haldol) 5 mg PO Q8 PRN PRN Reason: Moderate Agitation Haloperidol Lactate (Haldol) 5 mg IM Q8 PRN PRN Reason: Moderate Agitation Heparin Sodium (Porcine) (Heparin) 5,000 units SC Q12 [facility] Last Admin: 11/15/16 10:58 Dose: 5,000 units Azithromycin 500 mg/ Sodium (Chloride) 250 mls @ 250 mls/hr IVPB DAILY [facility] Last Admin: 11/15/16 10:07 Dose: 250 mls/hr Cefepime HCl (Maxipime Iv 2 Gm Premix) 2 gm in 100 mls @ 100 mls/hr IVPB Q12H [facility] Last Admin: 11/15/16 10:30 Dose: 100 mls/hr Sodium Chloride (Sodium Chloride 0.9%) 1,000 mls @ 100 mls/hr IV .Q10H [facility] Vancomycin/Sodium Chloride (Vancocin) 1 gm in 200 mls @ 166.7 mls/hr IVPB Q12H [facility] Stop: 11/20/16 17:01 Insulin Human Regular (Novolin R) 0 unit SC ACHS [facility] PRN Reason: Protocol Last Admin: 11/15/16 11:08 Dose: 4 unit Ipratropium [place] (Atrovent) 0.5 mg IH RQ6 PRN PRN Reason: Shortness of Breath Lisinopril (Zestril) 10 mg PO DAILY [facility] Last Admin: 11/15/16 10:14 Dose: 10 mg Lorazepam (Ativan) 1 mg PO Q6 PRN PRN Reason: Anxiety Metformin HCl (Glucophage) 500 mg PO BIDCC [facility] Last Admin: 11/15/16 08:11 Dose: 500 mg Pantoprazole Sodium (Protonix Ec Tab) 40 mg PO DAILY [facility] Last Admin: 11/15/16 10:14 Dose: 40 mg Saccharomyces Boulardii (Florastor) 250 mg PO BID [facility] Last Admin: 11/15/16 10:15 Dose: 250 mg Tamsulosin HCl (Flomax) 0.4 mg PO Q24H [facility] Last Admin: 11/14/16 17:39 Dose: 0.4 mg Trazodone HCl (Desyrel) 50 mg PO HS [facility] - Labs Labs: 11/15/16 07:48 11/15/16 07:48 - Constitutional Appears: Agitated - Head Exam Head Exam: ATRAUMATIC, NORMAL INSPECTION, NORMOCEPHALIC - Eye Exam Eye Exam: EOMI - ENT Exam ENT Exam: Mucous Membranes Moist - Respiratory Exam Respiratory Exam: Rhonchi, NORMAL BREATHING PATTERN - Cardiovascular Exam Cardiovascular Exam: REGULAR RHYTHM - GI/Abdominal Exam GI & Abdominal Exam: Soft, Normal Bowel Sounds. absent: Distended, Tenderness - Extremities Exam Extremities Exam: absent: Joint Swelling, Tenderness - Back Exam Back Exam: absent: CVA tenderness (L), CVA tenderness (R) - Neurological Exam Neurological Exam: Alert, Awake, Oriented x3 - Psychiatric Exam Psychiatric exam: Agitated - Skin Skin Exam: Dry, Intact, Normal Color, Warm Assessment and Plan - Assessment and Plan (Free Text) Assessment: Sepsis 2/2 RML PNA (Hospital Acquired) * ID (Gopi) * Rocephin 1 mg iv daily * Azithromycin 500 mg IV daily * Flu negative * urine legionella AG - negative * urine strep pneumo AG * serum mycoplasma IgM and IgG - F/U * Psych (Basilio) * Delerium 2/2 infection * Ativan 1mg PO Q6 * Haldol Q8 PRN * NS @ 100 UTI * urine culture - F/U * ID (Gopi) * Vanco 1g Q12 * NS @ 100 Possible Gastroparesis * GI (Chandrakant) - No evidence of gastroparesis Enlarged Prostate * PSA - F/U * Flomax .4 mg * Urology ([facility]) - F/U reccs DM2 * HgA1C 6.6 * Lipid Panel: TG 82, Chol 97, LDL 36, HDL 39 * TSH 1.08 * T4 1.3 * Metformin 500 mg po BID * Regular ISS * Accuchecks ACHS * Dietary diabetic counseling HTN * Lisinopril 10 mg po daily * Norvasc 5 mg po daily Diabetic Neuropathy * Gabapentin 300mg PO TID GERD * protonix 40 mg po daily Asthma * Atrovent q6h prn sob Prophylaxis * protonix as above * heparin 5000 u sc q12h * b/l scds * heart healthy diabetic diet <Allen Reid - Last Filed: 11/15/16 20:19> Objective - Vital Signs/Intake and Output Vital Signs (last 24 hours): Temp Pulse Resp BP Pulse Ox 98 F 122 H 22 140/78 98 11/15/16 13:10 11/15/16 19:34 11/15/16 13:10 11/15/16 13:10 11/15/16 13:10 - Medications Medications: Current Medications Acetaminophen (Tylenol 325mg Tab) 650 mg PO Q6 PRN PRN Reason: Fever >100.4 F Acetaminophen (Tylenol 325mg Tab) 650 mg PO Q6 PRN PRN Reason: Pain, moderate (4-7) Last Admin: 11/15/16 17:10 Dose: 650 mg Amlodipine Besylate (Norvasc) 5 mg PO BID [facility] Last Admin: 11/15/16 18:01 Dose: 5 mg Benztropine Mesylate (Cogentin) 2 mg PO Q6 PRN PRN Reason: Extra Pyramidal Symptoms Diphenhydramine HCl (Benadryl) 50 mg PO Q6 PRN PRN Reason: Allergy symptoms Docusate Sodium (Colace) 100 mg PO TID [facility] Last Admin: 11/15/16 18:01 Dose: 100 mg Finasteride (Proscar) 5 mg PO DAILY [facility] Last Admin: 11/15/16 10:13 Dose: 5 mg Gabapentin (Neurontin) 300 mg PO TID [facility] Last Admin: 11/15/16 17:10 Dose: 300 mg Haloperidol (Haldol) 5 mg PO Q8 PRN PRN Reason: Moderate Agitation Heparin Sodium (Porcine) (Heparin) 5,000 units SC Q12 [facility] Last Admin: 11/15/16 10:58 Dose: 5,000 units Azithromycin 500 mg/ Sodium (Chloride) 250 mls @ 250 mls/hr IVPB DAILY [facility] Last Admin: 11/15/16 10:07 Dose: 250 mls/hr Cefepime HCl (Maxipime Iv 2 Gm Premix) 2 gm in 100 mls @ 100 mls/hr IVPB Q12H [facility] Last Admin: 11/15/16 10:30 Dose: 100 mls/hr Sodium Chloride (Sodium Chloride 0.9%) 1,000 mls @ 100 mls/hr IV .Q10H [facility] Last Admin: 11/15/16 17:21 Dose: 100 mls/hr Vancomycin/Sodium Chloride (Vancocin) 1 gm in 200 mls @ 166.7 mls/hr IVPB Q12H [facility] Stop: 11/20/16 17:01 Last Admin: 11/15/16 17:54 Dose: 166.7 mls/hr Insulin Human Regular (Novolin R) 0 unit SC ACHS [facility] PRN Reason: Protocol Last Admin: 11/15/16 17:55 Dose: 2 unit Ipratropium [place] (Atrovent) 0.5 mg IH RQ6 PRN PRN Reason: Shortness of Breath Last Admin: 11/15/16 19:30 Dose: 0.5 mg Lisinopril (Zestril) 10 mg PO DAILY [facility] Last Admin: 11/15/16 10:14 Dose: 10 mg Lorazepam (Ativan) 1 mg PO Q6 PRN PRN Reason: Anxiety Last Admin: 11/15/16 17:19 Dose: 1 mg Metformin HCl (Glucophage) 500 mg PO BIDCC [facility] Last Admin: 11/15/16 18:03 Dose: 500 mg Pantoprazole Sodium (Protonix Ec Tab) 40 mg PO DAILY [facility] Last Admin: 11/15/16 10:14 Dose: 40 mg Saccharomyces Boulardii (Florastor) 250 mg PO BID [facility] Last Admin: 11/15/16 18:01 Dose: 250 mg Tamsulosin HCl (Flomax) 0.4 mg PO Q24H [facility] Last Admin: 11/15/16 17:14 Dose: 0.4 mg Trazodone HCl (Desyrel) 50 mg PO HS [facility] - Labs Labs: 11/15/16 07:48 11/15/16 07:48 Attending/Attestation - Attestation I have personally seen and examined this patient.: Yes I have fully participated in the care of the patient.: Yes I have reviewed all pertinent clinical information, including history, physical exam and plan: Yes Notes (Text): 11/15/16 20:16 Patient was seen and examined at 8:00 AM 11/15/16. Exam, Assessment and Plan were thoroughly gone over with the resident. Please note for Assessment and Plan: Enlarged Prostate: Prieto placed by Urology Dr. Cabrera Murphy 11/14/16. Patient is on Proscar 5 mg PO 1x/day, and Flomax 0.4 mg PO 1x/day Sister Mick has explained that patient has history of Narcotic Abuse and has requested that patient not be given narcotics. I updated patient's son Jacques and Sister Mick [phone], who were at bedside.
[2016-11-15] MEDS: Sodium Chloride 0.9% 1,000 ML IV SCH (17:21)
[2016-11-15] MEDS: Vancomycin 1 gm/NS 200 ml 1 GM/200 ML BAG IVPB SCH (17:54)
[2016-11-15] MEDS: Ipratropium 0.02% Inhal Soln (0.5 mg/2.5 ml) UD IH PRN (19:30)
--- NOTE | 2016-11-15 20:10 | CP.PCM.PN ---
Subjective - Date & Time of Evaluation Date of Evaluation: 11/15/16 Time of Evaluation: 05:00 - Subjective Subjective: dictated Objective - Vital Signs/Intake and Output Vital Signs (last 24 hours): Temp Pulse Resp BP Pulse Ox 98 F 122 H 22 140/78 98 11/15/16 13:10 11/15/16 19:34 11/15/16 13:10 11/15/16 13:10 11/15/16 13:10 - Medications Medications: Current Medications Acetaminophen (Tylenol 325mg Tab) 650 mg PO Q6 PRN PRN Reason: Fever >100.4 F Acetaminophen (Tylenol 325mg Tab) 650 mg PO Q6 PRN PRN Reason: Pain, moderate (4-7) Last Admin: 11/15/16 17:10 Dose: 650 mg Amlodipine Besylate (Norvasc) [address] [facility] Last Admin: 11/15/16 18:01 Dose: 5 mg Benztropine Mesylate (Cogentin) 2 mg PO Q6 PRN PRN Reason: Extra Pyramidal Symptoms Diphenhydramine HCl (Benadryl) 50 mg PO Q6 PRN PRN Reason: Allergy symptoms Docusate Sodium (Colace) [address] [facility] Last Admin: 11/15/16 18:01 Dose: 100 mg Finasteride (Proscar) [address] [facility] Last Admin: 11/15/16 10:13 Dose: 5 mg Gabapentin (Neurontin) [address] [facility] Last Admin: 11/15/16 17:10 Dose: 300 mg Haloperidol (Haldol) 5 mg PO Q8 PRN PRN Reason: Moderate Agitation Heparin Sodium (Porcine) (Heparin) 5,[address] [facility] Last Admin: 11/15/16 10:58 Dose: 5,000 units Azithromycin 500 mg/ Sodium (Chloride) 250 mls @ 250 mls/hr IVPB DAILY [facility] Last Admin: 11/15/16 10:07 Dose: 250 mls/hr Cefepime HCl (Maxipime Iv 2 Gm Premix) 2 gm in 100 mls @ 100 mls/hr IVPB Q12H [facility] Last Admin: 11/15/16 10:30 Dose: 100 mls/hr Sodium Chloride (Sodium Chloride 0.9%) 1,000 mls @ 100 mls/hr IV .Q10H [facility] Last Admin: 11/15/16 17:21 Dose: 100 mls/hr Vancomycin/Sodium Chloride (Vancocin) 1 gm in 200 mls @ 166.7 mls/hr IVPB Q12H [facility] Stop: 11/20/16 17:01 Last Admin: 11/15/16 17:54 Dose: 166.7 mls/hr Insulin Human Regular (Novolin R) 0 unit SC ACHS [facility] PRN Reason: Protocol Last Admin: 11/15/16 17:55 Dose: 2 unit Ipratropium [place] (Atrovent) 0.5 mg IH RQ6 PRN PRN Reason: Shortness of Breath Last Admin: 11/15/16 19:30 Dose: 0.5 mg Lisinopril (Zestril) [address] [facility] Last Admin: 11/15/16 10:14 Dose: 10 mg Lorazepam (Ativan) 1 mg PO Q6 PRN PRN Reason: Anxiety Last Admin: 11/15/16 17:19 Dose: 1 mg Metformin HCl (Glucophage) [address] [facility] Last Admin: 11/15/16 18:03 Dose: 500 mg Pantoprazole Sodium (Protonix Ec Tab) [address] [facility] Last Admin: 11/15/16 10:14 Dose: 40 mg Saccharomyces Boulardii (Florastor) [address] [facility] Last Admin: 11/15/16 18:01 Dose: 250 mg Tamsulosin HCl (Flomax) 0.[address] [facility] Last Admin: 11/15/16 17:14 Dose: 0.4 mg Trazodone HCl (Desyrel) 50 mg PO HS [facility] - Labs Labs: 11/15/16 07:48 11/15/16 07:48
[2016-11-16] MEDS: Vancomycin 1 gm/NS 200 ml 1 GM/200 ML BAG IVPB SCH ×2 (04:33→18:48)
[2016-11-16] MEDS: Sodium Chloride 0.9% 1,000 ML IV SCH ×3 (05:13→22:19)
--- NOTE | 2016-11-16 06:58 | CP.PCM.CON ---
History of Present Illness - History of Present Illness History of Present Illness: CONSULT DICTATED TOXIC AND SUPERIMPOSED METABOLIC ENCEPHALOPATHY WITH DELIRIUM NO SIGN OF MENINGOENCEPHALITIS CHECK EEG ANTIBIOTICS PER ID AND HYDRATION WITH NEUROLEPTICS PRN Past Patient History - Past Medical History & Family History Past Medical History?: Yes - Past Social History Smoking Status: Light Smoker < 10 Cigarettes Daily - CARDIAC Hx Hypertension: Yes - PULMONARY Hx Asthma: Yes - ENDOCRINE/METABOLIC Hx Diabetes Mellitus Type 2: Yes - MUSCULOSKELETAL/RHEUMATOLOGICAL Hx Back Pain: Yes - PSYCHIATRIC Hx Substance Use: No - SURGICAL HISTORY Hx Surgeries: No - ANESTHESIA Hx Anesthesia: No Hx Anesthesia Reactions: No Meds Allergies/Adverse Reactions: Allergies Allergy/AdvReac Type Severity Reaction Status Date / Time No Known Allergies Allergy Verified 11/14/16 09:56 - Medications Medications: Current Medications Acetaminophen (Tylenol 325mg Tab) 650 mg PO Q6 PRN PRN Reason: Fever >100.4 F Last Admin: 11/16/16 05:13 Dose: 650 mg Acetaminophen (Tylenol 325mg Tab) 650 mg PO Q6 PRN PRN Reason: Pain, moderate (4-7) Last Admin: 11/15/16 17:10 Dose: 650 mg Amlodipine Besylate (Norvasc) 5 mg PO BID [facility] Last Admin: 11/15/16 18:01 Dose: 5 mg Benztropine Mesylate (Cogentin) 2 mg PO Q6 PRN PRN Reason: Extra Pyramidal Symptoms Diphenhydramine HCl (Benadryl) 50 mg PO Q6 PRN PRN Reason: Allergy symptoms Last Admin: 11/16/16 00:01 Dose: 50 mg Docusate Sodium (Colace) 100 mg PO TID [facility] Last Admin: 11/15/16 18:01 Dose: 100 mg Finasteride (Proscar) 5 mg PO DAILY [facility] Last Admin: 11/15/16 10:13 Dose: 5 mg Gabapentin (Neurontin) 300 mg PO TID [facility] Last Admin: 11/15/16 17:10 Dose: 300 mg Haloperidol (Haldol) 5 mg PO Q8 PRN PRN Reason: Moderate Agitation Last Admin: 11/16/16 05:13 Dose: 5 mg Heparin Sodium (Porcine) (Heparin) 5,000 units SC Q12 [facility] Last Admin: 11/15/16 21:58 Dose: 5,000 units Azithromycin 500 mg/ Sodium (Chloride) 250 mls @ 250 mls/hr IVPB DAILY [facility] Last Admin: 11/15/16 10:07 Dose: 250 mls/hr Cefepime HCl (Maxipime Iv 2 Gm Premix) 2 gm in 100 mls @ 100 mls/hr IVPB Q12H [facility] Last Admin: 11/15/16 21:58 Dose: 100 mls/hr Sodium Chloride (Sodium Chloride 0.9%) 1,000 mls @ 100 mls/hr IV .Q10H [facility] Last Admin: 11/16/16 05:13 Dose: Not Given Vancomycin/Sodium Chloride (Vancocin) 1 gm in 200 mls @ 166.7 mls/hr IVPB Q12H [facility] Stop: 11/20/16 17:01 Last Admin: 11/16/16 04:33 Dose: 166.7 mls/hr Insulin Human Regular (Novolin R) 0 unit SC ACHS [facility] PRN Reason: Protocol Last Admin: 11/15/16 22:18 Dose: Not Given Ipratropium [place] (Atrovent) 0.5 mg IH RQ6 PRN PRN Reason: Shortness of Breath Last Admin: 11/15/16 19:30 Dose: 0.5 mg Lisinopril (Zestril) 10 mg PO DAILY [facility] Last Admin: 11/15/16 10:14 Dose: 10 mg Lorazepam (Ativan) 1 mg PO Q6 PRN PRN Reason: Anxiety Last Admin: 11/16/16 00:01 Dose: 1 mg Metformin HCl (Glucophage) 500 mg PO BIDCC [facility] Last Admin: 11/15/16 18:03 Dose: 500 mg Pantoprazole Sodium (Protonix Ec Tab) 40 mg PO DAILY [facility] Last Admin: 11/15/16 10:14 Dose: 40 mg Saccharomyces Boulardii (Florastor) 250 mg PO BID [facility] Last Admin: 11/15/16 18:01 Dose: 250 mg Tamsulosin HCl (Flomax) 0.4 mg PO Q24H [facility] Last Admin: 11/15/16 17:14 Dose: 0.4 mg Trazodone HCl (Desyrel) 50 mg PO HS [facility] Last Admin: 11/15/16 21:57 Dose: 50 mg Results - Vital Signs Recent Vital Signs: Last Vital Signs Temp 98.2 F 11/15/16 15:00 Pulse 122 H 11/15/16 19:34 Resp 20 11/15/16 15:00 BP 183/79 H 11/15/16 15:00 Pulse Ox 99 11/15/16 15:00 - Labs Result Diagrams: 11/15/16 07:48 11/15/16 07:48 Labs: Laboratory Results - last 24 hr 11/15/16 11/15/16 11/15/16 07:09 07:48 07:48 WBC RBC Hgb Hct MCV MCH MCHC RDW Plt Count MPV Neut % (Auto) Lymph % (Auto) Reynolds % (Auto) Eos % (Auto) Baso % (Auto) Neut # Lymph # Reynolds # Eos # Baso # Neutrophils % (Manual) Band Neutrophils % Lymphocytes % (Manual) Monocytes % (Manual) Platelet Estimate RBC Morphology Sodium 141 Potassium 3.7 Chloride 100 Carbon Dioxide 26 Anion Gap 19 BUN 8 L Creatinine 1.0 Est GFR ( Amer) > 60 Est GFR (Non-Af Amer) > 60 POC Glucose (mg/dL) 195 H Random Glucose 176 H Hemoglobin A1c 6.6 H Calcium 9.0 Total Bilirubin 0.9 AST 20 ALT 30 Alkaline Phosphatase 53 Total Protein 6.5 Albumin 3.6 Globulin 2.9 Albumin/Globulin Ratio 1.3 Triglycerides 82 Cholesterol 97 LDL Cholesterol Direct 36 HDL Cholesterol 39 Free T4 TSH 3rd Generation 1.08 11/15/16 11/15/16 11/15/16 07:48 07:48 11:01 WBC 27.2 H RBC 4.22 L Hgb 13.1 Hct 38.4 MCV 91.2 MCH 31.1 H MCHC 34.2 RDW 13.3 Plt Count 232 MPV 8.6 Neut % (Auto) 84.0 H Lymph % (Auto) 5.9 L Reynolds % (Auto) 9.0 Eos % (Auto) 0.5 Baso % (Auto) 0.6 Neut # 22.8 H Lymph # 1.6 Reynolds # 2.4 H Eos # 0.1 Baso # 0.2 Neutrophils % (Manual) 72 Band Neutrophils % 14 H* Lymphocytes % (Manual) 8 L Monocytes % (Manual) 6 Platelet Estimate Normal RBC Morphology Normal Sodium Potassium Chloride Carbon Dioxide Anion Gap BUN Creatinine Est GFR ( Amer) Est GFR (Non-Af Amer) POC Glucose (mg/dL) 229 H Random Glucose Hemoglobin A1c Calcium Total Bilirubin AST ALT Alkaline Phosphatase Total Protein Albumin Globulin Albumin/Globulin Ratio Triglycerides Cholesterol LDL Cholesterol Direct HDL Cholesterol Free T4 1.30 TSH 3rd Generation 11/15/16 11/15/16 17:23 22:03 WBC RBC Hgb Hct MCV MCH MCHC RDW Plt Count MPV Neut % (Auto) Lymph % (Auto) Reynolds % (Auto) Eos % (Auto) Baso % (Auto) Neut # Lymph # Reynolds # Eos # Baso # Neutrophils % (Manual) Band Neutrophils % Lymphocytes % (Manual) Monocytes % (Manual) Platelet Estimate RBC Morphology Sodium Potassium Chloride Carbon Dioxide Anion Gap BUN Creatinine Est GFR ( Amer) Est GFR (Non-Af Amer) POC Glucose (mg/dL) 157 H 234 H Random Glucose Hemoglobin A1c Calcium Total Bilirubin AST ALT Alkaline Phosphatase Total Protein Albumin Globulin Albumin/Globulin Ratio Triglycerides Cholesterol LDL Cholesterol Direct HDL Cholesterol Free T4 TSH 3rd Generation
[2016-11-16] MEDS: Ipratropium 0.02% Inhal Soln (0.5 mg/2.5 ml) UD IH PRN ×2 (07:13→13:12)
[2016-11-16 07:43] LABS: MAGNESIUM 1.5 mg/dL (1.6-2.3)
[2016-11-16] MEDS: (Novolin R) Insulin Human Regular 100 units/ml vial SC SCH ×4 (08:05→22:20)
[2016-11-16] MEDS: Saccharomyces Boulardi 250 mg Cap PO SCH ×3 (10:40→18:46)
--- NOTE | 2016-11-16 10:40 | CON ---
DATE: REASON FOR THE CONSULTATION: Change in mental status. CHIEF COMPLAINT: The patient was brought into [facility] with a history of abdominal pain and right leg pain with nausea. The patient was treated here a month ago and following that he was treated in the medical center for the same reason and he was brought in back here for further management for the same complaint. No history of fall. From neurological point of view, I was called in to evaluate him for further management. HISTORY OF PRESENT ILLNESS: Mr. Fabian Rosales is a 66-year-old right-handed male brought into [facility] with a history of subacute form of abdominal pain and right leg pain with nausea. No history of fall. No history of trauma. No history of involuntary movements. PAST MEDICAL HISTORY: Diabetes, hypertension, asthma, possible prostatic cancer. No history of stroke. No history of heart attack. FAMILY HISTORY: Son has diabetes and hypertension. SOCIAL HISTORY: The patient smokes. Denies alcohol use and drugs. HOME MEDICATIONS: Metformin, pantoprazole, hydrochlorothiazide, oxycodone, lisinopril, amlodipine, ProMax, Ventolin, and Motrin. REVIEW OF SYSTEMS: A 16-point review of systems has been reviewed. Neuro, change in mental status. PHYSICAL EXAMINATION VITAL SIGNS: Blood pressure 183/79 with mean arterial pressure of 113, respiratory rate of 16, temperature afebrile. The patient is afebrile since he is admitted. NECK: Supple. No meningeal mass. No Brudzinski sign. HEART: Sounds irregular. EXTREMITIES: Distal muscle atrophy. NEUROLOGIC: The patient did not sleep. The patient few minutes ago got Haldol injection. The patient is drowsy, easily arousable verbally. He knows he is in the hospital by communicating in Thai. He follows one step command. He could able to see and count the fingers. He moves all four extremities. CRANIAL NERVE EXAMINATION: Respond to visual threat. Rolling conjugate gaze. No facial asymmetry. Good gag. MOTOR EXAMINATION: He moves all four extremities. Deep tendon reflexes absent. Plantars are downgoing. SENSORY EXAMINATION: Respond to pain symmetrically on both sides. COORDINATION: Gait is deferred at this time. The patient was under chest lorie restraint. DIAGNOSTIC WORKUP: CT of the head, no acute pathologies noted. EKG is normal sinus rhythm. Blood workup: WBC 27.2, hemoglobin 13.1, hematocrit 38.4, platelet 232, and bands 14. Sodium 141, potassium 3.7, chloride 100, bicarbonate 26, BUN 8, creatinine 0.1, GFR more than 60, glucose 234. Triglyceride 82, cholesterol 97, LDL 36, HDL 39, TSH 1.08. Hemoglobin A1c is 6.6. The patient had a CT of the chest showed a pneumonia. CONCLUSION: Mr. Fabian Rosales has been presenting with change in mental status, been on multiple medications with abnormal blood counts and radiological evidence of pneumonia. The current examination reveals change in mental status. There seems to be toxic encephalopathy versus metabolic encephalopathy superimposed to delirium. The current examination from neuro does not seems to be any infectious source effecting his meninges or brain. RECOMMENDATION: 1. IV hydration. 2. Antibiotic as per ID. 3. The patient's mental status can be treated as per the psychiatrist recommendation. From neurological point of view, the patient need electroencephalogram and electrolytes should be checked. The patient will be followed closely with you. Yovani Bennett MD
[2016-11-16] MEDS: Pantoprazole 40 mg EC Tab PO SCH ×2 (10:42→12:01)
[2016-11-16] MEDS: Cefepime IV 2 gm in Dextrose 2 GM/100 ML BAG IVPB SCH ×2 (10:57→22:11)
[2016-11-16] MEDS: Azithromycin 500 MG in Sodium Chloride 0.9% 250 ML IVPB SCH (10:58)
--- NOTE | 2016-11-16 17:02 | CP.PCM.PN ---
Subjective - Date & Time of Evaluation Date of Evaluation: 11/16/16 Time of Evaluation: 03:50 - Subjective Subjective: dictated Objective - Vital Signs/Intake and Output Vital Signs (last 24 hours): Temp Pulse Resp BP Pulse Ox 98.2 F 122 H 20 183/79 H 99 11/15/16 15:00 11/15/16 19:34 11/15/16 15:00 11/15/16 15:00 11/15/16 15:00 Intake and Output: 11/16/16 11/16/16 06:59 18:59 Intake Total 1870 800 Output Total 1800 Balance 70 800 - Medications Medications: Current Medications Acetaminophen (Tylenol 325mg Tab) 650 mg PO Q6 PRN PRN Reason: Fever >100.4 F Last Admin: 11/16/16 11:58 Dose: 650 mg Acetaminophen (Tylenol 325mg Tab) 650 mg PO Q6 PRN PRN Reason: Pain, moderate (4-7) Last Admin: 11/15/16 17:10 Dose: 650 mg Amlodipine Besylate (Norvasc) 5 mg PO BID [facility] Last Admin: 11/16/16 12:00 Dose: 5 mg Benztropine Mesylate (Cogentin) 2 mg PO Q6 PRN PRN Reason: Extra Pyramidal Symptoms Diphenhydramine HCl (Benadryl) 50 mg PO Q6 PRN PRN Reason: Allergy symptoms Last Admin: 11/16/16 12:00 Dose: 50 mg Docusate Sodium (Colace) 100 mg PO TID [facility] Last Admin: 11/16/16 13:59 Dose: Not Given Finasteride (Proscar) 5 mg PO DAILY [facility] Last Admin: 11/16/16 10:42 Dose: Not Given Gabapentin (Neurontin) 300 mg PO TID [facility] Last Admin: 11/16/16 13:59 Dose: Not Given Haloperidol (Haldol) 5 mg PO Q8 PRN PRN Reason: Moderate Agitation Last Admin: 11/16/16 05:13 Dose: 5 mg Heparin Sodium (Porcine) (Heparin) 5,000 units SC Q12 [facility] Last Admin: 11/16/16 10:41 Dose: 5,000 units Azithromycin 500 mg/ Sodium (Chloride) 250 mls @ 250 mls/hr IVPB DAILY [facility] Last Admin: 11/16/16 10:58 Dose: 250 mls/hr Cefepime HCl (Maxipime Iv 2 Gm Premix) 2 gm in 100 mls @ 100 mls/hr IVPB Q12H [facility] Last Admin: 11/16/16 10:57 Dose: 100 mls/hr Sodium Chloride (Sodium Chloride 0.9%) 1,000 mls @ 100 mls/hr IV .Q10H [facility] Last Admin: 11/16/16 12:12 Dose: Not Given Vancomycin/Sodium Chloride (Vancocin) 1 gm in 200 mls @ 166.7 mls/hr IVPB Q12H [facility] Stop: 11/20/16 17:01 Last Admin: 11/16/16 04:33 Dose: 166.7 mls/hr Insulin Human Regular (Novolin R) 0 unit SC ACHS DANISHA PRN Reason: Protocol Last Admin: 11/16/16 12:02 Dose: 2 unit Ipratropium [place] (Atrovent) 0.5 mg IH RQ6 PRN PRN Reason: Shortness of Breath Last Admin: 11/16/16 13:12 Dose: 0.5 mg Lisinopril (Zestril) 10 mg PO DAILY [facility] Last Admin: 11/16/16 12:01 Dose: 10 mg Lorazepam (Ativan) 1 mg PO Q6 PRN PRN Reason: Anxiety Last Admin: 11/16/16 12:00 Dose: 1 mg Metformin HCl (Glucophage) 500 mg PO BIDCC [facility] Last Admin: 11/16/16 12:00 Dose: 500 mg Metoprolol Tartrate (Lopressor) 25 mg PO BID [facility] Pantoprazole Sodium (Protonix Ec Tab) 40 mg PO DAILY [facility] Last Admin: 11/16/16 12:01 Dose: 40 mg Saccharomyces Boulardii (Florastor) 250 mg PO BID [facility] Last Admin: 11/16/16 12:00 Dose: 250 mg Tamsulosin HCl (Flomax) 0.4 mg PO Q24H [facility] Last Admin: 11/15/16 17:14 Dose: 0.4 mg Trazodone HCl (Desyrel) 50 mg PO HS [facility] Last Admin: 11/15/16 21:57 Dose: 50 mg - Labs Labs: 11/15/16 07:48 11/15/16 07:48
--- NOTE | 2016-11-16 17:46 | CP.PCM.PN ---
<Maricruz Enrique - Last Filed: 11/16/16 17:43> Subjective - Date & Time of Evaluation Date of Evaluation: 11/16/16 Time of Evaluation: 17:43 - Subjective Subjective: Patient seen and examined at bedside. Patient sleeping and difficult to arouse. Patient was given Ativan overnight and recently received Haldol per nursing. ROS unattainable. Objective - Vital Signs/Intake and Output Vital Signs (last 24 hours): Temp Pulse Resp BP Pulse Ox 98.2 F 122 H 20 183/79 H 99 11/15/16 15:00 11/15/16 19:34 11/15/16 15:00 11/15/16 15:00 11/15/16 15:00 Intake and Output: 11/16/16 11/16/16 06:59 18:59 Intake Total 1870 800 Output Total 1800 Balance 70 800 - Medications Medications: Current Medications Acetaminophen (Tylenol 325mg Tab) 650 mg PO Q6 PRN PRN Reason: Fever >100.4 F Last Admin: 11/16/16 11:58 Dose: 650 mg Acetaminophen (Tylenol 325mg Tab) 650 mg PO Q6 PRN PRN Reason: Pain, moderate (4-7) Last Admin: 11/15/16 17:10 Dose: 650 mg Amlodipine Besylate (Norvasc) 5 mg PO BID [facility] Last Admin: 11/16/16 12:00 Dose: 5 mg Benztropine Mesylate (Cogentin) 2 mg PO Q6 PRN PRN Reason: Extra Pyramidal Symptoms Diphenhydramine HCl (Benadryl) 50 mg PO Q6 PRN PRN Reason: Allergy symptoms Last Admin: 11/16/16 12:00 Dose: 50 mg Docusate Sodium (Colace) 100 mg PO TID [facility] Last Admin: 11/16/16 13:59 Dose: Not Given Finasteride (Proscar) 5 mg PO DAILY [facility] Last Admin: 11/16/16 10:42 Dose: Not Given Gabapentin (Neurontin) 300 mg PO TID [facility] Last Admin: 11/16/16 13:59 Dose: Not Given Haloperidol (Haldol) 5 mg PO Q8 PRN PRN Reason: Moderate Agitation Last Admin: 11/16/16 05:13 Dose: 5 mg Heparin Sodium (Porcine) (Heparin) 5,000 units SC Q12 [facility] Last Admin: 11/16/16 10:41 Dose: 5,000 units Azithromycin 500 mg/ Sodium (Chloride) 250 mls @ 250 mls/hr IVPB DAILY [facility] Last Admin: 11/16/16 10:58 Dose: 250 mls/hr Cefepime HCl (Maxipime Iv 2 Gm Premix) 2 gm in 100 mls @ 100 mls/hr IVPB Q12H [facility] Last Admin: 11/16/16 10:57 Dose: 100 mls/hr Sodium Chloride (Sodium Chloride 0.9%) 1,000 mls @ 100 mls/hr IV .Q10H [facility] Last Admin: 11/16/16 12:12 Dose: Not Given Vancomycin/Sodium Chloride (Vancocin) 1 gm in 200 mls @ 166.7 mls/hr IVPB Q12H [facility] Stop: 11/20/16 17:01 Last Admin: 11/16/16 04:33 Dose: 166.7 mls/hr Insulin Human Regular (Novolin R) 0 unit SC ACHS DANISHA PRN Reason: Protocol Last Admin: 11/16/16 12:02 Dose: 2 unit Ipratropium [place] (Atrovent) 0.5 mg IH RQ6 PRN PRN Reason: Shortness of Breath Last Admin: 11/16/16 13:12 Dose: 0.5 mg Lisinopril (Zestril) 10 mg PO DAILY [facility] Last Admin: 11/16/16 12:01 Dose: 10 mg Lorazepam (Ativan) 1 mg PO Q6 PRN PRN Reason: Anxiety Last Admin: 11/16/16 12:00 Dose: 1 mg [facility] Last Admin: 11/16/16 12:00 Dose: 500 mg Metoprolol Tartrate (Lopressor) 25 mg PO BID [facility] Pantoprazole Sodium (Protonix Ec Tab) 40 mg PO DAILY [facility] Last Admin: 11/16/16 12:01 Dose: 40 mg Saccharomyces Boulardii (Florastor) 250 mg PO BID [facility] Last Admin: 11/16/16 12:00 Dose: 250 mg Tamsulosin HCl (Flomax) 0.4 mg PO Q24H [facility] Last Admin: 11/15/16 17:14 Dose: 0.4 mg Trazodone HCl (Desyrel) 50 mg PO HS [facility] Last Admin: 11/15/16 21:57 Dose: 50 mg - Labs Labs: 11/15/16 07:48 11/15/16 07:48 - Constitutional Appears: Non-toxic, No Acute Distress - Head Exam Head Exam: NORMAL INSPECTION - ENT Exam ENT Exam: Mucous Membranes Moist - Respiratory Exam Respiratory Exam: Rhonchi, NORMAL BREATHING PATTERN. absent: Rales, Wheezes - Cardiovascular Exam Cardiovascular Exam: REGULAR RHYTHM, +S1, +S2 - GI/Abdominal Exam GI & Abdominal Exam: Soft, Normal Bowel Sounds - Extremities Exam Extremities Exam: Normal Inspection. absent: Joint Swelling, Pedal Edema, Tenderness - Neurological Exam Additional comments: Sleeping - Skin Skin Exam: Dry, Intact, Normal Color, Warm Assessment and Plan - Assessment and Plan (Free Text) Assessment: Sepsis 2/2 RML PNA (Hospital Acquired) * ID (Gopi) * Cefepime 2g IV Q12h * Vancomycin 1g Q12h * Azithromycin 500 mg IV daily * discontinued Rocephin 1 mg iv daily * f/u [facility] records for recent ABX use (may be multi drug resistant) * Flu negative * urine legionella AG - negative * urine strep pneumo AG * serum mycoplasma IgM and IgG - F/U * Psych (Basilio) * Delerium 2/2 infection * Ativan 1mg PO Q6 * Haldol Q8 PRN * NS @ 100 UTI * urine culture - F/U * ID (Gopi) * Vanco 1g Q12 * NS @ 100 AMS * Neuro consulted (Dr. Bennett) - metabolic encephalopathy with delerium * F/U EEG Possible Gastroparesis * GI (Chandrakant) - No evidence of gastroparesis Enlarged Prostate * PSA - F/U * Seen on CT A/P received from [facility] * Flomax .4 mg * Urology (Jeffrey) - F/U reccs Renal lesion * 1.3 cm lesion seen on CT A/P received from [facility] (complex cyst v. solid mass) DM2 * HgA1C 6.6 * Lipid Panel: TG 82, Chol 97, LDL 36, HDL 39 * TSH 1.08 * T4 1.3 * Metformin 500 mg po BID * Regular ISS * Accuchecks ACHS * Dietary diabetic counseling HTN * Lisinopril 10 mg po daily * Norvasc 5 mg po daily Diabetic Neuropathy * Gabapentin 300mg PO TID GERD * protonix 40 mg po daily Asthma * Atrovent q6h prn sob Prophylaxis * protonix as above * heparin 5000 u sc q12h * b/l scds * heart healthy diabetic diet <Allen Reid - Last Filed: 11/16/16 20:02> Objective - Vital Signs/Intake and Output Vital Signs (last 24 hours): Temp Pulse Resp BP Pulse Ox 98.2 F 122 H 20 163/89 H 99 11/15/16 15:00 11/15/16 19:34 11/15/16 15:00 11/16/16 18:52 11/15/16 15:00 Intake and Output: 11/16/16 11/17/16 18:59 06:59 Intake Total 800 Balance 800 - Medications Medications: Current Medications Acetaminophen (Tylenol 325mg Tab) 650 mg PO Q6 PRN PRN Reason: Fever >100.4 F Last Admin: 11/16/16 11:58 Dose: 650 mg Acetaminophen (Tylenol 325mg Tab) 650 mg PO Q6 PRN PRN Reason: Pain, moderate (4-7) Last Admin: 11/16/16 18:50 Dose: 650 mg Amlodipine Besylate (Norvasc) 5 mg PO BID [facility] Last Admin: 11/16/16 18:53 Dose: 5 mg Benztropine Mesylate (Cogentin) 2 mg PO Q6 PRN PRN Reason: Extra Pyramidal Symptoms Diphenhydramine HCl (Benadryl) 50 mg PO Q6 PRN PRN Reason: Allergy symptoms Last Admin: 11/16/16 12:00 Dose: 50 mg Docusate Sodium (Colace) 100 mg PO TID [facility] Last Admin: 11/16/16 18:44 Dose: 100 mg Finasteride (Proscar) 5 mg PO DAILY [facility] Last Admin: 11/16/16 10:42 Dose: Not Given Gabapentin (Neurontin) 300 mg PO TID [facility] Last Admin: 11/16/16 18:47 Dose: 300 mg Haloperidol (Haldol) 5 mg PO Q8 PRN PRN Reason: Moderate Agitation Last Admin: 11/16/16 05:13 Dose: 5 mg Heparin Sodium (Porcine) (Heparin) 5,000 units SC Q12 [facility] Last Admin: 11/16/16 10:41 Dose: 5,000 units Azithromycin 500 mg/ Sodium (Chloride) 250 mls @ 250 mls/hr IVPB DAILY [facility] Last Admin: 11/16/16 10:58 Dose: 250 mls/hr Cefepime HCl (Maxipime Iv 2 Gm Premix) 2 gm in 100 mls @ 100 mls/hr IVPB Q12H [facility] Last Admin: 11/16/16 10:57 Dose: 100 mls/hr Sodium Chloride (Sodium Chloride 0.9%) 1,000 mls @ 100 mls/hr IV .Q10H [facility] Last Admin: 11/16/16 12:12 Dose: Not Given Vancomycin/Sodium Chloride (Vancocin) 1 gm in 200 mls @ 166.7 mls/hr IVPB Q12H [facility] Stop: 11/20/16 17:01 Last Admin: 11/16/16 18:48 Dose: 166.7 mls/hr Insulin Human Regular (Novolin R) 0 unit SC ACHS [facility] PRN Reason: Protocol Last Admin: 11/16/16 18:47 Dose: 2 unit Ipratropium [place] (Atrovent) 0.5 mg IH RQ6 PRN PRN Reason: Shortness of Breath Last Admin: 11/16/16 13:12 Dose: 0.5 mg Lisinopril (Zestril) 10 mg PO DAILY [facility] Last Admin: 11/16/16 12:01 Dose: 10 mg Lorazepam (Ativan) 1 mg PO Q6 PRN PRN Reason: Anxiety Last Admin: 11/16/16 19:01 Dose: 1 mg [facility]) [facility] Last Admin: 11/16/16 18:46 Dose: 500 mg Metoprolol Tartrate (Lopressor) 25 mg PO BID [facility] Last Admin: 11/16/16 18:52 Dose: 25 mg Pantoprazole Sodium (Protonix Ec Tab) 40 mg PO DAILY [facility] Last Admin: 11/16/16 12:01 Dose: 40 mg Saccharomyces Boulardii (Florastor) 250 mg PO BID [facility] Last Admin: 11/16/16 18:46 Dose: 250 mg Tamsulosin HCl (Flomax) 0.4 mg PO Q24H [facility] Last Admin: 11/16/16 18:46 Dose: 0.4 mg Trazodone HCl (Desyrel) 50 mg PO HS [facility] Last Admin: 11/15/16 21:57 Dose: 50 mg - Labs Labs: 11/15/16 07:48 11/15/16 07:48 Attending/Attestation - Attestation I have personally seen and examined this patient.: Yes I have fully participated in the care of the patient.: Yes I have reviewed all pertinent clinical information, including history, physical exam and plan: Yes Notes (Text): 11/16/16 19:59 Patient was seen and examined at 3:45 PM 11/16/16 Exam, Assessment and Plan were thoroughly gone over with the resident. Please also note on Assessment and Plan the following: Possible UTI: Urine Culture 11/14/16 does NOT show any growth. Enlarged Prostate: In addition to Flomax, patient is also on Proscar DM 2: LDL is 36 therefore NO statin at this time Possible Gastroparesis: Dr. Stallings recommends outpatient endoscopy after treatment of Pneumonia HTN: Metoprolol 25 mg PO 2x/day has been added to the Lisinopril and Norvasc due to uncontrolled blood pressure. Allen Reid D.O.
--- NOTE | 2016-11-17 00:32 | PN ---
DATE: SUBJECTIVE: Fabian Rosales is afebrile. T-max is 98.1, heart rate is 116, blood pressure 163/89, respirations are 20, but he was very drowsy. He is on 1:1 and he has altered mental status. He was seen by Dr. Bennett. PHYSICAL EXAMINATION LUNGS: Clear at this time. HEART: S1 and S2 is regular. ABDOMEN: Soft, nontender. No guarding. No rigidity present. EXTREMITIES: Have no edema. LABORATORY DATA: His labs came out, white count was 21. There are no new labs today. Should have new labs tomorrow. ASSESSMENT AND PLAN: We have added vancomycin. He is on Maxipime and Zithromax at this time. He is on haloperidol p.r.n. and need to see how he is doing with his labs tomorrow and he is very drowsy, most probably got sedation. Tracey Nguyễn MD
[2016-11-17] MEDS: Vancomycin 1 gm/NS 200 ml 1 GM/200 ML BAG IVPB SCH ×2 (04:51→17:50)
[2016-11-17] MEDS: Pantoprazole 40 mg EC Tab PO SCH ×2 (08:02→10:07)
[2016-11-17] MEDS: Saccharomyces Boulardi 250 mg Cap PO SCH ×3 (08:03→18:15)
[2016-11-17] MEDS: (Novolin R) Insulin Human Regular 100 units/ml vial SC SCH ×4 (08:23→21:32)
[2016-11-17] MEDS: Sodium Chloride 0.9% 1,000 ML IV SCH ×2 (08:30→18:00)
[2016-11-17] MEDS: Ipratropium 0.02% Inhal Soln (0.5 mg/2.5 ml) UD IH PRN ×2 (09:11→19:19)
[2016-11-17] MEDS: Cefepime IV 2 gm in Dextrose 2 GM/100 ML BAG IVPB SCH ×2 (10:06→21:30)
[2016-11-17] MEDS: Azithromycin 500 MG in Sodium Chloride 0.9% 250 ML IVPB SCH (10:08)
[2016-11-17 11:09] LABS: BASO # 0.1 K/uL (0.0-0.2); BASO % 0.4 % (0.0-2.0); EOS # 0.4 K/uL (0.0-0.7); EOS % 2.5 % (0.0-4.0); LYMPH # 1.2 K/uL (1.0-4.3); LYMPH % 6.9 % (20.0-40.0); MEAN CELL VOLUME 90.6 fL (80.0-94.0); MEAN CORPUSCULAR HEMOGLOBIN 30.7 pg (27.0-31.0); MEAN CORPUSCULAR HGB CONC 33.8 g/dL (33.0-37.0); MEAN PLATELET VOLUME 8.7 fL (7.2-11.7); MONO # 1.4 K/uL (0.0-0.8); MONO % 8.4 % (0.0-10.0); PLATELET COUNT 229 K/uL (130-400); RED CELL DISTRIBUTION WIDTH 12.8 % (11.5-14.5); WHITE BLOOD COUNT 17.2 K/uL (4.8-10.8)
[2016-11-17 11:13] LABS: CHLORIDE 101 mmol/L (98-107); POTASSIUM 3.4 mmol/L (3.6-5.2); SODIUM 139 mmol/L (132-148)
[2016-11-17 11:15] LABS: BILIRUBIN,TOTAL 0.5 mg/dL (0.2-1.3); CARBON DIOXIDE 27 mmol/L (22-30); GFR AFRICAN-AMERICAN > 60
[2016-11-17 11:16] LABS: ALKALINE PHOSPHATASE 58 U/L (38-126); ALT/SGPT 31 U/L (21-72); AST/SGOT 16 U/L (17-59); BLOOD UREA NITROGEN 10 mg/dL (9-20); CALCIUM 8.7 mg/dl (8.6-10.4); GLUCOSE,RANDOM 182 mg/dL (75-110); MAGNESIUM 1.8 mg/dL (1.6-2.3); PHOSPHOROUS 2.2 mg/dL (2.5-4.5); TOTAL PROTEIN 5.7 g/dL (6.3-8.3)
[2016-11-17 11:44] LABS: LARGE PLATELETS PRESENT; NEUTROPHIL 84 % (50-75); TOTAL CELLS COUNTED 100
[2016-11-17] MEDS ORDERED: Potassium Chloride 20 mEq ER Tab PO ONE (12:12)
--- NOTE | 2016-11-17 12:22 | CP.PCM.PN ---
<Maricruz Enrique - Last Filed: 11/17/16 18:19> Subjective - Date & Time of Evaluation Date of Evaluation: 11/17/16 Time of Evaluation: 12:18 - Subjective Subjective: Patient seen and examined at bedside. Patient sleeping upon arrival as he was recently given a dose of ativan per nursing. Patient did wake up for me today however, he was difficult to understand. Patient says he has not had a BM in 5 days but according to the nurse he had a BM 2 days ago. Patient otherwise denies any complaints at this time. Objective - Vital Signs/Intake and Output Vital Signs (last 24 hours): Temp Pulse Resp BP Pulse Ox 98.5 F 95 H 20 145/82 98 11/17/16 00:00 11/17/16 00:00 11/17/16 00:00 11/17/16 08:01 11/17/16 00:00 Intake and Output: 11/17/16 11/17/16 06:59 18:59 Intake Total 2240 Output Total 1050 Balance 1190 - Medications Medications: Current Medications Acetaminophen (Tylenol 325mg Tab) 650 mg PO Q6 PRN PRN Reason: Fever >100.4 F Last Admin: 11/17/16 05:18 Dose: 650 mg Acetaminophen (Tylenol 325mg Tab) 650 mg PO Q6 PRN PRN Reason: Pain, moderate (4-7) Last Admin: 11/16/16 18:50 Dose: 650 mg Amlodipine Besylate (Norvasc) 5 mg PO BID [facility] Last Admin: 11/17/16 10:06 Dose: Not Given Benztropine Mesylate (Cogentin) 2 mg PO Q6 PRN PRN Reason: Extra Pyramidal Symptoms Diphenhydramine HCl (Benadryl) 50 mg PO Q6 PRN PRN Reason: Allergy symptoms Last Admin: 11/17/16 08:03 Dose: 50 mg Docusate Sodium (Colace) 100 mg PO TID [facility] Last Admin: 11/17/16 10:03 Dose: Not Given Finasteride (Proscar) 5 mg PO DAILY [facility] Last Admin: 11/17/16 10:13 Dose: 5 mg Gabapentin (Neurontin) 300 mg PO TID [facility] Last Admin: 11/17/16 10:04 Dose: Not Given Haloperidol (Haldol) 5 mg PO Q8 PRN PRN Reason: Moderate Agitation Last Admin: 11/17/16 05:18 Dose: 5 mg Heparin Sodium (Porcine) (Heparin) 5,000 units SC Q12 [facility] Last Admin: 11/17/16 10:04 Dose: Not Given Azithromycin 500 mg/ Sodium (Chloride) 250 mls @ 250 mls/hr IVPB DAILY [facility] Last Admin: 11/17/16 10:08 Dose: 250 mls/hr Cefepime HCl (Maxipime Iv 2 Gm Premix) 2 gm in 100 mls @ 100 mls/hr IVPB Q12H [facility] Last Admin: 11/17/16 10:06 Dose: 100 mls/hr Sodium Chloride (Sodium Chloride 0.9%) 1,000 mls @ 100 mls/hr IV .Q10H [facility] Last Admin: 11/17/16 08:30 Dose: Not Given Vancomycin/Sodium Chloride (Vancocin) 1 gm in 200 mls @ 166.7 mls/hr IVPB Q12H [facility] Stop: 11/20/16 17:01 Last Admin: 11/17/16 04:51 Dose: 166.7 mls/hr Insulin Human Regular (Novolin R) 0 unit SC ACHS [facility] PRN Reason: Protocol Last Admin: 11/17/16 12:01 Dose: 4 unit Ipratropium [place] (Atrovent) 0.5 mg IH RQ6 PRN PRN Reason: Shortness of Breath Last Admin: 11/17/16 09:11 Dose: 0.5 mg Lisinopril (Zestril) 10 mg PO DAILY [facility] Last Admin: 11/17/16 10:08 Dose: Not Given Lorazepam (Ativan) 1 mg PO Q6 PRN PRN Reason: Anxiety Last Admin: 11/17/16 08:03 Dose: 1 mg Met[facility] ([facility]) [facility] Last Admin: 11/17/16 08:03 Dose: 500 mg Metoprolol Tartrate (Lopressor) 25 mg PO BID [facility] Last Admin: 11/17/16 10:04 Dose: Not Given Pantoprazole Sodium (Protonix Ec Tab) 40 mg PO DAILY [facility] Last Admin: 11/17/16 10:07 Dose: Not Given Potassium Chloride (K-Dur 20 Meq Er Tab) 40 meq PO ONCE ONE Stop: 11/17/16 12:13 Saccharomyces Boulardii (Florastor) 250 mg PO BID [facility] Last Admin: 11/17/16 10:03 Dose: Not Given Tamsulosin HCl (Flomax) 0.4 mg PO Q24H [facility] Last Admin: 11/16/16 18:46 Dose: 0.4 mg Trazodone HCl (Desyrel) 50 mg PO HS [facility] Last Admin: 11/16/16 22:11 Dose: 50 mg - Labs Labs: 11/17/16 11:00 11/17/16 11:00 - Constitutional Appears: Non-toxic, No Acute Distress - Head Exam Head Exam: NORMAL INSPECTION - Eye Exam Eye Exam: EOMI, Normal appearance - ENT Exam ENT Exam: Mucous Membranes Moist - Respiratory Exam Respiratory Exam: Clear to Ausculation Bilateral, NORMAL BREATHING PATTERN. absent: Rales, Rhonchi, Wheezes - Cardiovascular Exam Cardiovascular Exam: REGULAR RHYTHM, +S1, +S2 - GI/Abdominal Exam GI & Abdominal Exam: Soft, Normal Bowel Sounds. absent: Tenderness - Extremities Exam Extremities Exam: Normal Inspection. absent: Pedal Edema, Tenderness - Neurological Exam Neurological Exam: Awake - Psychiatric Exam Psychiatric exam: Normal Affect, Normal Mood - Skin Skin Exam: Dry, Intact, Normal Color, Warm Assessment and Plan - Assessment and Plan (Free Text) Assessment: Sepsis 2/2 RML PNA (Hospital Acquired) * ID (Gopi) * Cefepime 2g IV Q12h * Vancomycin 1g Q12h * Azithromycin 500 mg IV daily * discontinued Rocephin 1 mg iv daily * f/u [facility] records for recent ABX use (may be multi drug resistant) * Flu negative * urine legionella AG - negative * urine strep pneumo AG * serum mycoplasma IgM and IgG - F/U * Psych (Basilio) * Delerium 2/2 infection * Ativan 1mg PO Q6 * Haldol Q8 PRN * NS @ 100 * Blood culture (11/14) negative x48h UTI * urine culture (11/14) - no growth * ID (Gopi) * Vanco 1g Q12 * NS @ 100 AMS * Neuro consulted (Dr. Bennett) - metabolic encephalopathy with delerium * F/U EEG Possible Gastroparesis * GI (Chandrakant) - No evidence of gastroparesis; recommends out patient endoscopy after treatment for pneumonia Enlarged Prostate * PSA - F/U * Seen on CT A/P received from [facility] * Flomax .4 mg and proscar * Urology (Jeffrey) - F/U reccs Renal lesion * 1.3 cm lesion seen on CT A/P received from [facility] (complex cyst v. solid mass) DM2 * HgA1C 6.6 * Lipid Panel: TG 82, Chol 97, LDL 36, HDL 39 (no statin needed at this time) * TSH 1.08 * T4 1.3 * Metformin 500 mg po BID * Regular ISS * Accuchecks ACHS * Dietary diabetic counseling HTN * Lisinopril 10 mg po daily * Norvasc 5 mg po daily * Metoprolol 25 mg PO BID added Diabetic Neuropathy * Gabapentin 300mg PO TID GERD * protonix 40 mg po daily Asthma * Atrovent q6h prn sob Prophylaxis * protonix as above * heparin 5000 u sc q12h * b/l scds * heart healthy diabetic diet <Allen Reid - Last Filed: 11/17/16 20:02> Objective - Vital Signs/Intake and Output Vital Signs (last 24 hours): Temp Pulse Resp BP Pulse Ox 98.4 F 100 H 20 127/78 99 11/17/16 15:00 11/17/16 15:00 11/17/16 15:00 11/17/16 18:17 11/17/16 15:00 - Medications Medications: Current Medications Acetaminophen (Tylenol 325mg Tab) 650 mg PO Q6 PRN PRN Reason: Fever >100.4 F Last Admin: 11/17/16 12:31 Dose: 650 mg Acetaminophen (Tylenol 325mg Tab) 650 mg PO Q6 PRN PRN Reason: Pain, moderate (4-7) Last Admin: 11/16/16 18:50 Dose: 650 mg Amlodipine Besylate (Norvasc) 5 mg PO BID [facility] Last Admin: 11/17/16 18:19 Dose: 5 mg Benztropine Mesylate (Cogentin) 2 mg PO Q6 PRN PRN Reason: Extra Pyramidal Symptoms Diphenhydramine HCl (Benadryl) 50 mg PO Q6 PRN PRN Reason: Allergy symptoms Last Admin: 11/17/16 08:03 Dose: 50 mg Docusate Sodium (Colace) 100 mg PO TID [facility] Last Admin: 11/17/16 18:16 Dose: 100 mg Finasteride (Proscar) 5 mg PO DAILY [facility] Last Admin: 11/17/16 10:13 Dose: 5 mg Gabapentin (Neurontin) 300 mg PO TID [facility] Last Admin: 11/17/16 18:18 Dose: 300 mg Haloperidol (Haldol) 5 mg PO Q8 PRN PRN Reason: Moderate Agitation Last Admin: 11/17/16 05:18 Dose: 5 mg Heparin Sodium (Porcine) (Heparin) 5,000 units SC Q12 [facility] Last Admin: 11/17/16 10:04 Dose: Not Given Azithromycin 500 mg/ Sodium (Chloride) 250 mls @ 250 mls/hr IVPB DAILY [facility] Last Admin: 11/17/16 10:08 Dose: 250 mls/hr Cefepime HCl (Maxipime Iv 2 Gm Premix) 2 gm in 100 mls @ 100 mls/hr IVPB Q12H [facility] Last Admin: 11/17/16 10:06 Dose: 100 mls/hr Sodium Chloride (Sodium Chloride 0.9%) 1,000 mls @ 100 mls/hr IV .Q10H [facility] Last Admin: 11/17/16 08:30 Dose: Not Given Vancomycin/Sodium Chloride (Vancocin) 1 gm in 200 mls @ 166.7 mls/hr IVPB Q12H [facility] Stop: 11/20/16 17:01 Last Admin: 11/17/16 17:50 Dose: 166.7 mls/hr Insulin Human Regular (Novolin R) 0 unit SC ACHS [facility] PRN Reason: Protocol Last Admin: 11/17/16 16:30 Dose: Not Given Ipratropium Kaycee (Atrovent) 0.5 mg IH RQ6 PRN PRN Reason: Shortness of Breath Last Admin: 11/17/16 19:19 Dose: 0.5 mg Lisinopril (Zestril) 10 mg PO DAILY [facility] Last Admin: 11/17/16 10:08 Dose: Not Given Lorazepam (Ativan) 1 mg PO Q6 PRN PRN Reason: Anxiety Last Admin: 11/17/16 19:03 Dose: 1 mg Metformin [facility] ([facility]) [facility] Last Admin: 11/17/16 18:00 Dose: 500 mg Metoprolol Tartrate (Lopressor) 25 mg PO BID [facility] Last Admin: 11/17/16 18:17 Dose: 25 mg Pantoprazole Sodium (Protonix Ec Tab) 40 mg PO DAILY [facility] Last Admin: 11/17/16 10:07 Dose: Not Given Saccharomyces Boulardii (Florastor) 250 mg PO BID [facility] Last Admin: 11/17/16 18:15 Dose: 250 mg Tamsulosin HCl (Flomax) 0.4 mg PO Q24H [facility] Last Admin: 11/17/16 18:19 Dose: 0.4 mg Trazodone HCl (Desyrel) 50 mg PO HS [facility] Last Admin: 11/16/16 22:11 Dose: 50 mg - Labs Labs: 11/17/16 11:00 11/17/16 11:00 Attending/Attestation - Attestation I have personally seen and examined this patient.: Yes I have fully participated in the care of the patient.: Yes I have reviewed all pertinent clinical information, including history, physical exam and plan: Yes Notes (Text): 11/17/16 19:58 Patient was seen and examined at 5:45 PM 11/17/16 Exam, assessment and plan were thoroughly gone over with the resident. Upon FULL ROS patient states that he has not had a bowel movement in 5 days Patient is no longer agitated and is participating in exam. Please also note on Assessment and Plan: Hx Agitation: Cogentin 2 mg PO Q6H PRN Extrapyramidal Symptoms, Haldol 5 mg PO Q8H PRN Agitation, Ativan 1 mg PO Q6H PRN Anxiety Enlarged Prostate: will speak with Urology Dr. Jonathan Murphy concerning removal of Prieto to try a trial of voiding. Allen Reid D.O.
[2016-11-17] MEDS ORDERED: Bisacodyl 5mg EC Tab PO ONE (18:01)
[2016-11-18] MEDS: Sodium Chloride 0.9% 1,000 ML IV SCH (04:00)
[2016-11-18] MEDS: Vancomycin 1 gm/NS 200 ml 1 GM/200 ML BAG IVPB SCH ×2 (04:17→16:20)
[2016-11-18 07:42] LABS: BASO % 0.3 % (0.0-2.0); EOS # 0.5 K/uL (0.0-0.7); EOS % 2.9 % (0.0-4.0); HEMATOCRIT 36.2 % (35.0-51.0); LYMPH # 1.3 K/uL (1.0-4.3); LYMPH % 8.4 % (20.0-40.0); MEAN CELL VOLUME 90.6 fL (80.0-94.0); MEAN CORPUSCULAR HEMOGLOBIN 30.5 pg (27.0-31.0); MEAN CORPUSCULAR HGB CONC 33.7 g/dL (33.0-37.0); MEAN PLATELET VOLUME 8.7 fL (7.2-11.7); MONO # 1.9 K/uL (0.0-0.8); MONO % 12.6 % (0.0-10.0); PLATELET COUNT 274 K/uL (130-400); WHITE BLOOD COUNT 15.4 K/uL (4.8-10.8)
[2016-11-18] MEDS: Ipratropium 0.02% Inhal Soln (0.5 mg/2.5 ml) UD IH PRN ×2 (07:45→19:29)
[2016-11-18 08:01] LABS: CHLORIDE 98 mmol/L (98-107); SODIUM 138 mmol/L (132-148)
[2016-11-18 08:02] LABS: POTASSIUM 3.4 mmol/L (3.6-5.2)
[2016-11-18 08:04] LABS: ALB/GLOB RATIO 1.1 (1.0-2.1); ALKALINE PHOSPHATASE 78 U/L (38-126); ALT/SGPT 32 U/L (21-72); AST/SGOT 19 U/L (17-59); BILIRUBIN,TOTAL 0.9 mg/dL (0.2-1.3); BLOOD UREA NITROGEN 9 mg/dL (9-20); CALCIUM 8.9 mg/dl (8.6-10.4); CARBON DIOXIDE 27 mmol/L (22-30); GFR AFRICAN-AMERICAN > 60; GLUCOSE,RANDOM 188 mg/dL (75-110); PHOSPHOROUS 1.8 mg/dL (2.5-4.5); TOTAL PROTEIN 6.4 g/dL (6.3-8.3)
[2016-11-18 08:05] LABS: MAGNESIUM 1.6 mg/dL (1.6-2.3)
[2016-11-18] MEDS: (Novolin R) Insulin Human Regular 100 units/ml vial SC SCH ×4 (08:29→22:24)
[2016-11-18 08:53] LABS: EOSINOPHIL 6 % (0-4); LARGE PLATELETS PRESENT; NEUTROPHIL 70 % (50-75); TOTAL CELLS COUNTED 100
[2016-11-18] MEDS: Cefepime IV 2 gm in Dextrose 2 GM/100 ML BAG IVPB SCH ×2 (10:24→21:14)
[2016-11-18] MEDS: Azithromycin 500 MG in Sodium Chloride 0.9% 250 ML IVPB SCH (10:25)
[2016-11-18] MEDS: Pantoprazole 40 mg EC Tab PO SCH (10:30)
[2016-11-18] MEDS ORDERED: Potassium Chloride 20 mEq/15 ml LIQ UD PO ONE (10:30)
[2016-11-18] MEDS: Saccharomyces Boulardi 250 mg Cap PO SCH ×2 (10:45→17:48)
--- NOTE | 2016-11-18 13:36 | CP.PCM.PN ---
<Maricruz Enrique - Last Filed: 11/18/16 13:30> Subjective - Date & Time of Evaluation Date of Evaluation: 11/18/16 Time of Evaluation: 13:30 - Subjective Subjective: Patient seen and examined at bedside. Patient sleeping and difficult to arouse. According to nurse, patient was aggitated and trying to pull out his Prieto this morning. Patient was given ativan. ROS could not be obtained at this time. Objective - Vital Signs/Intake and Output Vital Signs (last 24 hours): Temp Pulse Resp BP Pulse Ox 98 F 122 H 21 182/70 H 95 11/18/16 08:03 11/18/16 08:03 11/18/16 08:03 11/18/16 10:32 11/18/16 08:03 Intake and Output: 11/18/16 11/18/16 06:59 18:59 Intake Total 1650 Output Total 1450 800 Balance 200 -800 - Medications Medications: Current Medications Acetaminophen (Tylenol 325mg Tab) 650 mg PO Q6 PRN PRN Reason: Fever >100.4 F Last Admin: 11/18/16 10:29 Dose: 650 mg Acetaminophen (Tylenol 325mg Tab) 650 mg PO Q6 PRN PRN Reason: Pain, moderate (4-7) Last Admin: 11/16/16 18:50 Dose: 650 mg Amlodipine Besylate (Norvasc) 5 mg PO BID [facility]S [facility] Last Admin: 11/18/16 10:45 Dose: 5 mg Benztropine Mesylate (Cogentin) 2 mg PO Q6 PRN PRN Reason: Extra Pyramidal Symptoms Diphenhydramine HCl (Benadryl) 50 mg PO Q6 PRN PRN Reason: Allergy symptoms Last Admin: 11/18/16 10:31 Dose: 50 mg Docusate Sodium (Colace) 100 mg PO TID [facility]S [facility] Last Admin: 11/18/16 13:16 Dose: 100 mg Finasteride (Proscar) 5 mg PO DAILY [facility] 234 [facility] Last Admin: 11/18/16 10:45 Dose: 5 mg Gabapentin (Neurontin) 300 mg PO TID [facility] 234 [facility] Last Admin: 11/18/16 13:16 Dose: 300 mg Haloperidol (Haldol) 5 mg PO Q8 PRN PRN Reason: Moderate Agitation Last Admin: 11/18/16 04:20 Dose: 5 mg Azithromycin 500 mg/ Sodium (Chloride) 250 mls @ 250 mls/hr IVPB DAILY [facility] 234 [facility] Last Admin: 11/18/16 10:25 Dose: 250 mls/hr Cefepime HCl (Maxipime Iv 2 Gm Premix) 2 gm in 100 mls @ 100 mls/hr IVPB Q12H [facility] 234 [facility]S [facility] Last Admin: 11/18/16 10:24 Dose: 100 mls/hr Vancomycin/Sodium Chloride (Vancocin) 1 gm in 200 mls @ 166.7 mls/hr IVPB Q12H [facility] 234 [facility]S [facility] Stop: 11/20/16 17:01 Last Admin: 11/18/16 04:17 Dose: 166.7 mls/hr Insulin Human Regular (Novolin R) 0 unit SC ACHS [facility] PRN Reason: Protocol Last Admin: 11/18/16 11:36 Dose: 4 unit Ipratropium [place] (Atrovent) 0.5 mg IH RQ6 PRN PRN Reason: Shortness of Breath Last Admin: 11/18/16 07:45 Dose: 0.5 mg Lisinopril (Zestril) 10 mg PO DAILY [facility] 234 [facility] Last Admin: 11/18/16 10:45 Dose: 10 mg Lorazepam (Ativan) 1 mg PO Q6 PRN PRN Reason: Anxiety Last Admin: 11/18/16 08:00 Dose: 1 mg Metformin HCl (Glucophage) 500 mg PO BIDCC [facility]S INCLUDE 234 [facility]S [facility] Last Admin: 11/18/16 08:30 Dose: 500 mg Metoprolol Tartrate (Lopressor) 25 mg PO BID [facility] 234 [facility]S [facility] Last Admin: 11/18/16 10:32 Dose: 25 mg Pantoprazole Sodium (Protonix Ec Tab) 40 mg PO DAILY [facility] 234 [facility]S [facility] Last Admin: 11/18/16 10:30 Dose: 40 mg Saccharomyces Boulardii (Florastor) 250 mg PO BID [facility] 234 B[facility]S [facility] Last Admin: 11/18/16 10:45 Dose: 250 mg Tamsulosin HCl (Flomax) 0.4 mg PO Q24H [facility] 234 [facility]S [facility] Last Admin: 11/17/16 18:19 Dose: 0.4 mg Trazodone HCl (Desyrel) 50 mg PO HS [facility] 234 [facility]S [facility] Last Admin: 11/17/16 21:24 Dose: 50 mg - Labs Labs: 11/18/16 07:25 11/18/16 07:25 - Constitutional Appears: Non-toxic, No Acute Distress - Head Exam Head Exam: NORMAL INSPECTION - Respiratory Exam Respiratory Exam: Clear to Ausculation Bilateral, NORMAL BREATHING PATTERN - Cardiovascular Exam Cardiovascular Exam: REGULAR RHYTHM, +S1, +S2 - GI/Abdominal Exam GI & Abdominal Exam: Soft, Normal Bowel Sounds - Extremities Exam Extremities Exam: Normal Inspection. absent: Pedal Edema - Neurological Exam Additional comments: sleeping - Skin Skin Exam: Dry, Intact, Normal Color, Warm Assessment and Plan - Assessment and Plan (Free Text) Assessment: Sepsis 2/2 Multi-drug resistant hospital acquired pneumonia * ID (Gopi) * Cefepime 2g IV Q12h * Vancomycin 1g Q12h * Azithromycin 500 mg IV daily * discontinued Rocephin 1 mg iv daily * recent abx use per [facility] records (multi drug resistant) * Flu negative * urine legionella AG - negative * urine strep pneumo AG * serum mycoplasma IgM and IgG - F/U * Psych (Basilio) * Delerium 2/2 infection * Ativan 1mg PO Q6 * Haldol Q8 PRN * NS @ 100 * Blood culture (11/14) negative x48h UTI * urine culture (11/14) - no growth * ID (Gopi) * Vanco 1g Q12 * NS @ 100 AMS * Neuro consulted (Dr. Bennett) - metabolic encephalopathy with delerium * F/U EEG Possible Gastroparesis * GI (Chandrakant) - No evidence of gastroparesis; recommends out patient endoscopy after treatment for pneumonia Enlarged Prostate * PSA - F/U * Seen on CT A/P received from [facility] * Flomax .4 mg and proscar * Urology (Jeffrey) - F/U reccs * Prieto - consider trial void if Dr. Murphy agrees Renal lesion * 1.3 cm lesion seen on CT A/P received from [facility] (complex cyst v. solid mass) DM2 * HgA1C 6.6 * Lipid Panel: TG 82, Chol 97, LDL 36, HDL 39 (no statin needed at this time) * TSH 1.08 * T4 1.3 * Metformin 500 mg po BID * Regular ISS * Accuchecks ACHS * Dietary diabetic counseling HTN * Lisinopril 10 mg po daily * Norvasc 5 mg po daily * Metoprolol 25 mg PO BID added Diabetic Neuropathy * Gabapentin 300mg PO TID GERD * protonix 40 mg po daily Asthma * Atrovent q6h prn sob Prophylaxis * protonix as above * heparin 5000 u sc q12h * b/l scds * heart healthy diabetic diet <Allen Reid - Last Filed: 11/18/16 20:38> Objective - Vital Signs/Intake and Output Vital Signs (last 24 hours): Temp Pulse Resp BP Pulse Ox 98 F 122 H 21 118/68 95 11/18/16 08:03 11/18/16 08:03 11/18/16 08:03 11/18/16 17:48 11/18/16 08:03 Intake and Output: 11/18/16 11/19/16 18:59 06:59 Intake Total 200 Output Total 1600 Balance -1400 - Medications Medications: Current Medications Acetaminophen (Tylenol 325mg Tab) 650 mg PO Q6 PRN PRN Reason: Fever >100.4 F Last Admin: 11/18/16 10:29 Dose: 650 mg Acetaminophen (Tylenol 325mg Tab) 650 mg PO Q6 PRN PRN Reason: Pain, moderate (4-7) Last Admin: 11/16/16 18:50 Dose: 650 mg Amlodipine Besylate (Norvasc) 5 mg PO BID [facility] 234 [facility]S [facility] Last Admin: 11/18/16 17:48 Dose: 5 mg Benztropine Mesylate (Cogentin) 2 mg PO Q6 PRN PRN Reason: Extra Pyramidal Symptoms Diphenhydramine HCl (Benadryl) 50 mg PO Q6 PRN PRN Reason: Allergy symptoms Last Admin: 11/18/16 10:31 Dose: 50 mg Docusate Sodium (Colace) 100 mg PO TID [facility] 234 [facility] Last Admin: 11/18/16 17:48 Dose: 100 mg Finasteride (Proscar) 5 mg PO DAILY [facility] 234 [facility] Last Admin: 11/18/16 10:45 Dose: 5 mg Gabapentin (Neurontin) 300 mg PO TID [facility] 234 B[facility]S [facility] Last Admin: 11/18/16 17:49 Dose: 300 mg Haloperidol (Haldol) 5 mg PO Q8 PRN PRN Reason: Moderate Agitation Last Admin: 11/18/16 16:20 Dose: 5 mg Azithromycin 500 mg/ Sodium (Chloride) 250 mls @ 250 mls/hr IVPB DAILY [facility]CLUDE 234 B[facility]S [facility] Last Admin: 11/18/16 10:25 Dose: 250 mls/hr Cefepime HCl (Maxipime Iv 2 Gm Premix) 2 gm in 100 mls @ 100 mls/hr IVPB Q12H [facility]CLUDE 234 BEDS [facility] Last Admin: 11/18/16 10:24 Dose: 100 mls/hr Vancomycin/Sodium Chloride (Vancocin) 1 gm in 200 mls @ 166.7 mls/hr IVPB Q12H [facility]CLUDE 234 BEDS AT [facility] Stop: 11/20/16 17:01 Last Admin: 11/18/16 16:20 Dose: 166.7 mls/hr Insulin Human Regular (Novolin R) 0 unit SC ACHS [facility] PRN Reason: Protocol Last Admin: 11/18/16 17:11 Dose: Not Given Ipratropium [place] (Atrovent) 0.5 mg IH RQ6 PRN PRN Reason: Shortness of Breath Last Admin: 11/18/16 19:29 Dose: 0.5 mg Lisinopril (Zestril) 10 mg PO DAILY [facility]CLUDE 234 B[facility]S [facility] Last Admin: 11/18/16 10:45 Dose: 10 mg Lorazepam (Ativan) 1 mg PO Q6 PRN PRN Reason: Anxiety Last Admin: 11/18/16 19:49 Dose: 1 mg Metformin HCl (Glucophage) 500 mg PO BIDCC COUNTS [facility]CLUDE 234 BEDS AT [facility] Last Admin: 11/18/16 16:20 Dose: 500 mg Metoprolol Tartrate (Lopressor) 25 mg PO BID [facility]CLUDE 234 BEDS AT [facility] Last Admin: 11/18/16 17:48 Dose: 25 mg Pantoprazole Sodium (Protonix Ec Tab) 40 mg PO DAILY [facility]CLUDE 234 BEDS AT [facility] Last Admin: 11/18/16 10:30 Dose: 40 mg Saccharomyces Boulardii (Florastor) 250 mg PO BID [facility]CLUDE 234 BEDS AT [facility] Last Admin: 11/18/16 17:48 Dose: 250 mg Tamsulosin HCl (Flomax) 0.4 mg PO Q24H COUNTS INCLUDE 234 BEDS AT [facility] Last Admin: 11/18/16 16:20 Dose: 0.4 mg Trazodone HCl (Desyrel) 50 mg PO HS [facility]CLUDE 234 BEDS AT [facility] Last Admin: 11/17/16 21:24 Dose: 50 mg - Labs Labs: 11/18/16 07:25 11/18/16 07:25 Attending/Attestation - Attestation I have personally seen and examined this patient.: Yes I have fully participated in the care of the patient.: Yes I have reviewed all pertinent clinical information, including history, physical exam and plan: Yes Notes (Text): 09/24/17 20:28 Patient was seen and examined shortly before resident. Exam, assessment and plan were thoroughly gone over with the resident. Medicine Team please make sure that patient has had a bowel movment: ROS not possible as Ativan was given prior to exam Also on exam: Left Lateral Hip Mole Please also note on Assessment and Plan: Health Care Associated Pneumonia: Maxipime, Zithromax, Vancomycin, Blood Culture is negative to date, NO fever in the past 48 hours, WBC declining Possible UTI: Urine Culture is negative Hx Agitation: Cogentin 2 mg PO Q6H PRN Extrapyramidal Symptoms, Haldol 5 mg PO Q8H PRN Agitation, Ativan 1 mg PO Q6H PRN Anxiety Enlarged Prostate: I spoke with Dr. Jonathan Murphy concerning this issue via text and provided him with the patient's history/details and expressed my concern about the Prieto. Medicine Team, if the Dr. Murphy has not seen patient by , I recommend discontinuing the Prieto, and having a trial of voiding and performing bladder scan Q6H to make sure that the patient not retaining urine. He has been placed on Proscar and Flomax since his admission by the medicine team. Allen Reid D.o.
[2016-11-18] MEDS ORDERED: Magnesium Citrate Oral SOL (300 ml) PO ONE (19:45)
[2016-11-19] MEDS: Vancomycin 1 gm/NS 200 ml 1 GM/200 ML BAG IVPB SCH ×2 (04:39→16:13)
[2016-11-19 06:53] LABS: BASO # 0.1 K/uL (0.0-0.2); BASO % 0.5 % (0.0-2.0); EOS # 0.6 K/uL (0.0-0.7); EOS % 4.2 % (0.0-4.0); LYMPH # 1.1 K/uL (1.0-4.3); LYMPH % 7.5 % (20.0-40.0); MEAN CELL VOLUME 89.4 fL (80.0-94.0); MEAN CORPUSCULAR HEMOGLOBIN 30.9 pg (27.0-31.0); MEAN CORPUSCULAR HGB CONC 34.5 g/dL (33.0-37.0); MEAN PLATELET VOLUME 8.2 fL (7.2-11.7); MONO # 1.7 K/uL (0.0-0.8); MONO % 11.8 % (0.0-10.0); PLATELET COUNT 278 K/uL (130-400); RED CELL DISTRIBUTION WIDTH 13.1 % (11.5-14.5); WHITE BLOOD COUNT 14.1 K/uL (4.8-10.8)
--- NOTE | 2016-11-19 07:15 | EEG ---
DATE OF STUDY: 11/16/2016 This is a 16-channel electroencephalogram of awake and drowsy adult. During the study, photic stimulation was performed. Hyperventilation was not performed. The resting electroencephalogram consists of diffuse slow activity throughout the recording, which consists of low amplitude 4 to 6 Hz delta mixed with theta activities noted. Some movement artifact and eye blinking artifacts noted. The photic stimulation did not evoke driving response noted at 2 to 20 Hz. IMPRESSION: This is an abnormal electroencephalogram because of persistent slowing throughout the record suggestive of bilateral cerebral dysfunction. During the study, neither electroencephalographic paroxysmal activities nor focal slowing noted. Yovani Bennett MD
[2016-11-19 07:38] LABS: CHLORIDE 99 mmol/L (98-107); POTASSIUM 3.4 mmol/L (3.6-5.2); SODIUM 138 mmol/L (132-148)
[2016-11-19 07:40] LABS: GFR AFRICAN-AMERICAN > 60
[2016-11-19 07:41] LABS: ALKALINE PHOSPHATASE 61 U/L (38-126); AST/SGOT 20 U/L (17-59); BILIRUBIN,TOTAL 0.7 mg/dL (0.2-1.3); BLOOD UREA NITROGEN 11 mg/dL (9-20); CARBON DIOXIDE 30 mmol/L (22-30); GLUCOSE,RANDOM 173 mg/dL (75-110); TOTAL PROTEIN 6.2 g/dL (6.3-8.3)
[2016-11-19 07:43] LABS: ALB/GLOB RATIO 0.9 (1.0-2.1); ALT/SGPT 32 U/L (21-72); CALCIUM 8.7 mg/dl (8.6-10.4); MAGNESIUM 1.9 mg/dL (1.6-2.3); PHOSPHOROUS 2.4 mg/dL (2.5-4.5)
[2016-11-19 08:22] LABS: EOSINOPHIL 5 % (0-4); NEUTROPHIL 79 % (50-75); TOTAL CELLS COUNTED 100
[2016-11-19] MEDS: (Novolin R) Insulin Human Regular 100 units/ml vial SC SCH ×4 (08:29→22:17)
[2016-11-19] MEDS: Ipratropium 0.02% Inhal Soln (0.5 mg/2.5 ml) UD IH PRN (08:54)
[2016-11-19] MEDS: Pantoprazole 40 mg EC Tab PO SCH (09:03)
[2016-11-19] MEDS: Saccharomyces Boulardi 250 mg Cap PO SCH ×2 (09:04→17:44)
[2016-11-19] MEDS: Azithromycin 500 MG in Sodium Chloride 0.9% 250 ML IVPB SCH (09:28)
[2016-11-19] MEDS: Cefepime IV 2 gm in Dextrose 2 GM/100 ML BAG IVPB SCH ×2 (11:02→21:36)
[2016-11-19] MEDS ORDERED: Potassium Chloride 20 mEq ER Tab PO ONE (12:04)
--- NOTE | 2016-11-19 14:30 | PCM.URO ---
Urology Progress Note - Objective Lab Results Last 24 Hours: Laboratory Results - last 24 hr 11/16/16 11/18/16 11/18/16 11:49 16:29 21:40 WBC RBC Hgb Hct MCV MCH MCHC RDW Plt Count MPV Neut % (Auto) Lymph % (Auto) [place] % (Auto) Eos % (Auto) Baso % (Auto) Neut # Lymph # [place] # Eos # Baso # Neutrophils % (Manual) Lymphocytes % (Manual) Monocytes % (Manual) Eosinophils % (Manual) Platelet Estimate RBC Morphology Sodium Potassium Chloride Carbon Dioxide Anion Gap BUN Creatinine Est GFR ( Amer) Est GFR (Non-Af Amer) POC Glucose (mg/dL) 141 H 169 H Random Glucose Calcium Ionized Calcium 5.3 Phosphorus Magnesium Total Bilirubin AST ALT Alkaline Phosphatase Total Protein Albumin Globulin Albumin/Globulin Ratio 11/19/16 11/19/16 11/19/16 06:43 06:43 07:09 WBC 14.1 H RBC 3.70 L Hgb 11.4 L Hct 33.0 L MCV 89.4 MCH 30.9 MCHC 34.5 RDW 13.1 Plt Count 278 MPV 8.2 Neut % (Auto) 76.0 H Lymph % (Auto) 7.5 L [place] % (Auto) 11.8 H Eos % (Auto) 4.2 H Baso % (Auto) 0.5 Neut # 10.7 H Lymph # 1.1 [place] # 1.7 H Eos # 0.6 Baso # 0.1 Neutrophils % (Manual) 79 H Lymphocytes % (Manual) 12 L Monocytes % (Manual) 4 Eosinophils % (Manual) 5 H Platelet Estimate Normal RBC Morphology Normal Sodium 138 Potassium 3.4 L Chloride 99 Carbon Dioxide 30 Anion Gap 12 BUN 11 Creatinine 0.8 Est GFR ( Amer) > 60 Est GFR (Non-Af Amer) > 60 POC Glucose (mg/dL) 200 H Random Glucose 173 H Calcium 8.7 Ionized Calcium Phosphorus 2.4 L Magnesium 1.9 Total Bilirubin 0.7 AST 20 ALT 32 Alkaline Phosphatase 61 Total Protein 6.2 L Albumin 3.0 L Globulin 3.2 Albumin/Globulin Ratio 0.9 L 11/19/16 11:12 WBC RBC Hgb Hct MCV MCH MCHC RDW Plt Count MPV Neut % (Auto) Lymph % (Auto) [place] % (Auto) Eos % (Auto) Baso % (Auto) Neut # Lymph # [place] # Eos # Baso # Neutrophils % (Manual) Lymphocytes % (Manual) Monocytes % (Manual) Eosinophils % (Manual) Platelet Estimate RBC Morphology Sodium Potassium Chloride Carbon Dioxide Anion Gap BUN Creatinine Est GFR ( Amer) Est GFR (Non-Af Amer) POC Glucose (mg/dL) 261 H Random Glucose Calcium Ionized Calcium Phosphorus Magnesium Total Bilirubin AST ALT Alkaline Phosphatase Total Protein Albumin Globulin Albumin/Globulin Ratio Intake & Output: Intake & Output 11/18/16 11/19/16 11/19/16 18:59 06:59 18:59 Intake Total 200 900 Output Total 1600 5400 Balance -1400 -4500 Intake: Intake, IV Amount 500 Right Forearm 500 Oral 200 400 Output: Urine 1600 5400 Urethral (Pri[place]) 1600 5400 Other: # Bowel Movements 0 Vital Signs: Vital Signs - 24 hr 11/18/16 11/19/16 11/19/16 17:48 00:00 09:13 Temperature 97.4 F L Pulse Rate 85 Respiratory 20 Rate Blood Pressure 118/68 148/77 154/78 H O2 Sat by Pulse 99 Oximetry
--- NOTE | 2016-11-19 14:47 | CP.PCM.PN ---
<Yanni Phillips - Last Filed: 11/19/16 14:43> Subjective - Date & Time of Evaluation Date of Evaluation: 11/19/16 Time of Evaluation: 10:00 - Subjective Subjective: Medicine Note for Dr. Madden Patient was seen and examined at bedside. Family was at bedside. Patient appeared more oriented and alert as compared to previous exams as per chart. As per family, patient lives alone and is not able to take care of himself. Family requested if he can have a home health aid or visiting nurse, to assist him with his ADLs. Denied fever,chills, headache, chest pain, SOB, abdominal pain, n /v/d/c, or urinary symptoms. Objective - Vital Signs/Intake and Output Vital Signs (last 24 hours): Temp Pulse Resp BP Pulse Ox 97.4 F L 85 20 154/78 H 99 11/19/16 00:00 11/19/16 00:00 11/19/16 00:00 11/19/16 09:13 11/19/16 00:00 Intake and Output: 11/19/16 11/19/16 06:59 18:59 Intake Total 900 Output Total 5400 Balance -4500 - Medications Medications: Current Medications Acetaminophen (Tylenol 325mg Tab) 650 mg PO Q6 PRN PRN Reason: Fever >100.4 F Last Admin: 11/19/16 04:40 Dose: 650 mg Acetaminophen (Tylenol 325mg Tab) 650 mg PO Q6 PRN PRN Reason: Pain, moderate (4-7) Last Admin: 11/16/16 18:50 Dose: 650 mg Amlodipine Besylate (Norvasc) 5 mg PO BID [facility] Last Admin: 11/19/16 09:04 Dose: 5 mg Benztropine Mesylate (Cogentin) 2 mg PO Q6 PRN PRN Reason: Extra Pyramidal Symptoms Diphenhydramine HCl (Benadryl) 50 mg PO Q6 PRN PRN Reason: Allergy symptoms Last Admin: 11/18/16 10:31 Dose: 50 mg Docusate Sodium (Colace) 100 mg PO TID [facility] Last Admin: 11/19/16 14:34 Dose: 100 mg Finasteride (Proscar) 5 mg PO DAILY [facility] Last Admin: 11/19/16 09:28 Dose: 5 mg Gabapentin (Neurontin) 300 mg PO TID [facility] Last Admin: 11/19/16 14:34 Dose: 300 mg Guaifenesin (Mucinex La) 600 mg PO BID [facility] Haloperidol (Haldol) 5 mg PO Q8 PRN PRN Reason: Moderate Agitation Last Admin: 11/18/16 16:20 Dose: 5 mg Azithromycin 500 mg/ Sodium (Chloride) 250 mls @ 250 mls/hr IVPB DAILY [facility] Last Admin: 11/19/16 09:28 Dose: 250 mls/hr Cefepime HCl (Maxipime Iv 2 Gm Premix) 2 gm in 100 mls @ 100 mls/hr IVPB Q12H [facility] Last Admin: 11/19/16 11:02 Dose: 100 mls/hr Vancomycin/Sodium Chloride (Vancocin) 1 gm in 200 mls @ 166.7 mls/hr IVPB Q12H [facility] Stop: 11/20/16 17:01 Last Admin: 11/19/16 04:39 Dose: 166.7 mls/hr Insulin Human Regular (Novolin R) 0 unit SC ACHS [facility] PRN Reason: Protocol Last Admin: 11/19/16 12:19 Dose: 6 unit Ipratropium [place] (Atrovent) 0.5 mg IH RQ6 PRN PRN Reason: Shortness of Breath Last Admin: 11/19/16 08:54 Dose: 0.5 mg Lisinopril (Zestril) 10 mg PO DAILY [facility] Last Admin: 11/19/16 09:03 Dose: 10 mg Lorazepam (Ativan) 1 mg PO Q6 PRN PRN Reason: Anxiety Last Admin: 11/19/16 09:02 Dose: 1 mg Metoprolol Tartrate (Lopressor) 25 mg PO BID [facility] Last Admin: 11/19/16 09:13 Dose: 25 mg Pantoprazole Sodium (Protonix Ec Tab) 40 mg PO DAILY [facility] Last Admin: 11/19/16 09:03 Dose: 40 mg Saccharomyces Boulardii (Florastor) 250 mg PO BID [facility] Last Admin: 11/19/16 09:04 Dose: 250 mg Tamsulosin HCl (Flomax) 0.4 mg PO Q24H [facility] Last Admin: 11/18/16 16:20 Dose: 0.4 mg Trazodone HCl (Desyrel) 50 mg PO HS [facility] Last Admin: 11/18/16 21:13 Dose: 50 mg - Labs Labs: 11/19/16 06:43 11/19/16 06:43 - Constitutional Appears: No Acute Distress - Head Exam Head Exam: NORMAL INSPECTION, NORMOCEPHALIC - Eye Exam Eye Exam: EOMI, Normal appearance, PERRL Pupil Exam: NORMAL ACCOMODATION - ENT Exam ENT Exam: Mucous Membranes Moist - Respiratory Exam Respiratory Exam: Clear to Ausculation Bilateral, NORMAL BREATHING PATTERN. absent: Decreased Breath Sounds - Cardiovascular Exam Cardiovascular Exam: REGULAR RHYTHM, RRR, +S1, +S2 - GI/Abdominal Exam GI & Abdominal Exam: Soft, Normal Bowel Sounds. absent: Distended, Tenderness - Exam Exam: absent: Bladder Distension (RASCON IN PLACE THIS AM) - Extremities Exam Extremities Exam: Normal Inspection. absent: Pedal Edema, Tenderness - Neurological Exam Neurological Exam: Alert, Awake, Normal Gait, Oriented x3 - Psychiatric Exam Psychiatric exam: Normal Affect, Normal Mood - Skin Skin Exam: Dry, Intact, Normal Color, Warm Assessment and Plan - Assessment and Plan (Free Text) Plan: Sepsis * 2/2 Multi-drug resistant hospital acquired pneumonia * ID (Gopi) * Blood culture (11/14) negative x48h * Recent abx use per [facility] [place] [place] records (multi drug resistant) * Cefepime 2g IV Q12h * Vancomycin 1g Q12h Vanco Trough 11/19 - 15.5 * Azithromycin 500 mg IV daily * Flu negative, urine legionella AG - negative * F/U serum mycoplasma IgM and IgG, urine strep pneumo AG UTI * urine culture (11/14) - no growth * ID (Gopi) * Cefepime 2g IV Q12h * Vancomycin 1g Q12h * Azithromycin 500 mg IV daily * NS @ 100 AMS * Neuro consulted (Dr. Bennett) - metabolic encephalopathy with delerium * EEG - abnormal due to persistent slowing throughout the record, suggestive of bilateral cerebral dysfunction. Possible Gastroparesis * GI (Chandrakant) - No evidence of gastroparesis; recommends out patient endoscopy after treatment for pneumonia Enlarged Prostate * PSA - F/U * Seen on CT A/P received from [facility] [place] [place] * Flomax 0.4 mg and proscar 5mg po daily * Urology (Jeffrey) - rascon removed- voiding trial, bladder scan QSHIFT to monitor for retention Renal lesion * 1.3 cm lesion seen on CT A/P received from [facility] [place] [place] (complex cyst v. solid mass) DM2 * HgA1C 6.6 * Lipid Panel: TG 82, Chol 97, LDL 36, HDL 39 (no statin needed at this time) * TSH 1.08 * T4 1.3 * Regular ISS * Accuchecks ACHS * Dietary diabetic counseling HTN * Lisinopril 10 mg po daily * Norvasc 5 mg po daily * Metoprolol 25 mg PO BID added Diabetic Neuropathy * Gabapentin 300mg PO TID GERD * protonix 40 mg po daily Asthma * Atrovent q6h prn sob Prophylaxis * protonix as above * heparin 5000 u sc q12h * b/l scds * heart healthy diabetic diet * PT/OT: recommendations DW Jacqueline Jane DO, PGY-1 <Rosmery Madden V - Last Filed: 11/20/16 05:03> Objective - Vital Signs/Intake and Output Vital Signs (last 24 hours): Temp Pulse Resp BP Pulse Ox 97.1 F L 85 20 161/86 H 98 11/20/16 00:30 11/20/16 00:30 11/20/16 00:30 11/20/16 00:30 11/20/16 00:30 Intake and Output: 11/19/16 11/20/16 18:59 06:59 Intake Total 950 700 Output Total 1000 1000 Balance -50 -300 - Medications Medications: Current Medications Acetaminophen (Tylenol 325mg Tab) 650 mg PO Q6 PRN PRN Reason: Fever >100.4 F Last Admin: 11/19/16 04:40 Dose: 650 mg Acetaminophen (Tylenol 325mg Tab) 650 mg PO Q6 PRN PRN Reason: Pain, moderate (4-7) Last Admin: 11/20/16 01:58 Dose: 650 mg Amlodipine Besylate (Norvasc) 5 mg PO BID [facility] Last Admin: 11/19/16 17:44 Dose: 5 mg Diphenhydramine HCl (Benadryl) 50 mg PO Q6 PRN PRN Reason: Allergy symptoms Last Admin: 11/18/16 10:31 Dose: 50 mg Docusate Sodium (Colace) 100 mg PO TID [facility] Last Admin: 11/19/16 17:44 Dose: 100 mg Finasteride (Proscar) 5 mg PO DAILY [facility] Last Admin: 11/19/16 09:28 Dose: 5 mg Gabapentin (Neurontin) 300 mg PO TID [facility] Last Admin: 11/19/16 17:44 Dose: 300 mg Guaifenesin (Mucinex La) 600 mg PO BID [facility] Last Admin: 11/19/16 17:50 Dose: 600 mg Azithromycin 500 mg/ Sodium (Chloride) 250 mls @ 250 mls/hr IVPB DAILY [facility] Last Admin: 11/19/16 09:28 Dose: 250 mls/hr Cefepime HCl (Maxipime Iv 2 Gm Premix) 2 gm in 100 mls @ 100 mls/hr IVPB Q12H [facility] Last Admin: 11/19/16 21:36 Dose: 100 mls/hr Insulin Human Regular (Novolin R) 0 unit SC ACHS [facility] PRN Reason: Protocol Last Admin: 11/19/16 22:17 Dose: Not Given Ipratropium [place] (Atrovent) 0.5 mg IH RQ6 PRN PRN Reason: Shortness of Breath Last Admin: 11/19/16 08:54 Dose: 0.5 mg Lisinopril (Zestril) 10 mg PO DAILY [facility] Last Admin: 11/19/16 09:03 Dose: 10 mg Metoprolol Tartrate (Lopressor) 25 mg PO BID [facility] Last Admin: 11/19/16 17:45 Dose: 25 mg Pantoprazole Sodium (Protonix Ec Tab) 40 mg PO DAILY [facility] Last Admin: 11/19/16 09:03 Dose: 40 mg Saccharomyces Boulardii (Florastor) 250 mg PO BID [facility] Last Admin: 11/19/16 17:44 Dose: 250 mg Tamsulosin HCl (Flomax) 0.4 mg PO Q24H [facility] Last Admin: 11/19/16 16:14 Dose: 0.4 mg Trazodone HCl (Desyrel) 50 mg PO HS [facility] Last Admin: 11/19/16 21:44 Dose: 50 mg - Labs Labs: 11/19/16 06:43 11/19/16 06:43 Attending/Attestation - Attestation I have personally seen and examined this patient.: Yes I have fully participated in the care of the patient.: Yes I have reviewed all pertinent clinical information, including history, physical exam and plan: Yes Notes (Text): This is a late computer entry for 11/19/16. Patient seen, examined, and case discussed with day-time resident. Patient seen family visited the patient earlier, in review of prior EMR notes, mental status has improved. Patient is calmer, conversant in [place], does not appear agitated. Discussed with urology, Dr Cabrera Murphy will come by to evaluate patient and d/c the Rascon. F/u PSA Patient is on IV abx to cover of hospital acquired pneumonia; in light of recent hospital discharge. F/u PT/OT Vanco trough level while on Vanco IV 1. Sepsis secondary to right middle lobe pneumonia * Criteria: leukocytosis, febrile and source of infection is pneumonia; lactate acid: 1.0-->code sepsis not called given normal lactate * Patient recently d/c from another hospital about 3 days prior to admission--> treatment for hospital acquired pneumonia (48 hours-72 hours into hospitalization) * Infectious Disease (Dr. Nguyễn) on board-->help appreciated * CT abdomen/pelvis (11/14/16): foci of airspace consolidation and infiltrates noted at the right middle lobe associated with small right pleural effusion likely representing pneumonia. No evidence of nephrolithiasis or hydronephrosis. Mild to moderate urinary bladder wall thickening. Moderately enlarged prostate. Mild constipation * Blood culture 11/14: no growth after 5 days X2 * Urine culture 11/14: no growth * Maxipime 2gm IPB Q12H (active since 11/14/16) * Azithromycin 500mg IVPB daily (active since 11/15/16) * F/u chest xray per ID * negative Rapid influenza * negative urine legionella AG * pending urine strep pneumo AG * negative serum mycoplasma IgM and pending IgG * Mucinex 600mg PO BID * Florastor 250mg PO BID * f/u discharge paper work from [facility] [place] [place] 2. Ruled out UTI * Blood culture 11/14: no growth after 5 days X2 * Urine culture 11/14: no growth 3. Toxic/Metabolic encephalopathy * Contributing factors: medications and sepsis * Neurology (Dr Bennett) on board-->help appreciated * Psych (Dr. Richmond) on board-->help appreciated-->r/o delirum, opiate use disorder * Head CT (11/15/16): no acute pathology noted * EEG (11/19/16): abnormal * UDS on admission: positive for both opiates and benzos * Improved * 11/19: d/c ativan, d/c haldol, d/c cogentin in light of improvement in mental status 4. Persistent Nausea * GI (Dr. Stallings) on consult-->help appreciated; signed off * Diet as tolerated, anti-emetic therapy PRN, c/w Abc, does not recommended any current endoscopic testing given active treatment of pulmonary disease, benefit from elective outpatient evaluation * CT abdomen/pelvis (11/14/16): foci of airspace consolidation and infiltrates noted at the right middle lobe associated with small right pleural effusion likely representing pneumonia. No evidence of nephrolithiasis or hydronephrosis. Mild to moderate urinary bladder wall thickening. Moderately enlarged prostate. Mild constipation 5. Enlarged Prostate Elevated PSA * Urology (Dr. Cabrera Murphy) on consult-->help appreciated * Will come and to determine rascon to be removed today at 1PM * CT abdomen/pelvis (11/14/16): foci of airspace consolidation and infiltrates noted at the right middle lobe associated with small right pleural effusion likely representing pneumonia. No evidence of nephrolithiasis or hydronephrosis. Mild to moderate urinary bladder wall thickening. Moderately enlarged prostate. Mild constipation * PSA: 20.7-->f/u urology * Urine culture 11/14: no growth 6. DM2 * HgA1C: 6.6-->relatively controlled * Held metformin in light of sepsis picture given SE: lactic acidosis * Neurontin 300mg PO TID * Lipid Panel: T, Chol: 97, LDL: HDL: * TSH: 1.08; Free T4: 1.30 * Regular ISS * Accuchecks ACHS * Dietary diabetic counseling 6. Hypertension * Lisinopril 10 mg po daily * Norvasc 5 mg po BID * Lopressor 25mg PO BID 7. GERD * protonix 40 mg po daily 8. Prophylaxis * protonix 40mg PO bid * florastor 250mg PO bid * heparin 5000 u sc q8h * b/l scds * heart healthy diabetic diet * PT eval: subacute rehab * OT eval: pending Disposition: Continue IV abx; monitor for mental status changes, rascon to be d/c ; f/u PSA; pending OT eval; f/u with patient and family regarding subacute rehab for discharge planning
[2016-11-19] MEDS: guaiFENesin 600 mg ER Tab PO SCH (17:50)
--- NOTE | 2016-11-19 19:35 | CP.PCM.PN ---
Subjective - Date & Time of Evaluation Date of Evaluation: 11/19/16 Time of Evaluation: 04:00 - Subjective Subjective: dictated Objective - Vital Signs/Intake and Output Vital Signs (last 24 hours): Temp Pulse Resp BP Pulse Ox 97.4 F L 101 H 20 154/78 H 97 11/19/16 15:00 11/19/16 15:00 11/19/16 15:00 11/19/16 17:45 11/19/16 15:00 Intake and Output: 11/19/16 11/20/16 18:59 06:59 Intake Total 950 Output Total 1000 Balance -50 - Medications Medications: Current Medications Acetaminophen (Tylenol 325mg Tab) 650 mg PO Q6 PRN PRN Reason: Fever >100.4 F Last Admin: 11/19/16 04:40 Dose: 650 mg Acetaminophen (Tylenol 325mg Tab) 650 mg PO Q6 PRN PRN Reason: Pain, moderate (4-7) Last Admin: 11/19/16 16:23 Dose: 650 mg Amlodipine Besylate (Norvasc) 5 mg PO BID [facility] Last Admin: 11/19/16 17:44 Dose: 5 mg Diphenhydramine HCl (Benadryl) 50 mg PO Q6 PRN PRN Reason: Allergy symptoms Last Admin: 11/18/16 10:31 Dose: 50 mg Docusate Sodium (Colace) 100 mg PO TID [facility] Last Admin: 11/19/16 17:44 Dose: 100 mg Finasteride (Proscar) 5 mg PO DAILY [facility] Last Admin: 11/19/16 09:28 Dose: 5 mg Gabapentin (Neurontin) 300 mg PO TID [facility] Last Admin: 11/19/16 17:44 Dose: 300 mg Guaifenesin (Mucinex La) 600 mg PO BID [facility] Last Admin: 11/19/16 17:50 Dose: 600 mg Azithromycin 500 mg/ Sodium (Chloride) 250 mls @ 250 mls/hr IVPB DAILY [facility] Last Admin: 11/19/16 09:28 Dose: 250 mls/hr Cefepime HCl (Maxipime Iv 2 Gm Premix) 2 gm in 100 mls @ 100 mls/hr IVPB Q12H [facility] Last Admin: 11/19/16 11:02 Dose: 100 mls/hr Insulin Human Regular (Novolin R) 0 unit SC ACHS [facility] PRN Reason: Protocol Last Admin: 11/19/16 16:40 Dose: 10 unit Ipratropium [place] (Atrovent) 0.5 mg IH RQ6 PRN PRN Reason: Shortness of Breath Last Admin: 11/19/16 08:54 Dose: 0.5 mg Lisinopril (Zestril) 10 mg PO DAILY [facility] Last Admin: 11/19/16 09:03 Dose: 10 mg Metoprolol Tartrate (Lopressor) 25 mg PO BID [facility] Last Admin: 11/19/16 17:45 Dose: 25 mg Pantoprazole Sodium (Protonix Ec Tab) 40 mg PO DAILY [facility] Last Admin: 11/19/16 09:03 Dose: 40 mg Saccharomyces Boulardii (Florastor) 250 mg PO BID [facility] Last Admin: 11/19/16 17:44 Dose: 250 mg Tamsulosin HCl (Flomax) 0.4 mg PO Q24H [facility] Last Admin: 11/19/16 16:14 Dose: 0.4 mg Trazodone HCl (Desyrel) 50 mg PO HS [facility] Last Admin: 11/18/16 21:13 Dose: 50 mg - Labs Labs: 11/19/16 06:43 11/19/16 06:43
--- NOTE | 2016-11-19 22:29 | CARD ---
APPROVED REPORT EKG Measurement Heart [id number] <Conclusion> Sinus tachycardia Possible Left atrial enlargement Borderline ECG
--- NOTE | 2016-11-20 00:43 | PN ---
DATE: SUBJECTIVE: The patient is more alert and oriented. He followed the commands. He was ready to sit up. He knows he is in the hospital. He denies any headache, fever, chills or any shortness of breath. No abdominal pain. Looks like a new man. PHYSICAL EXAMINATION: VITAL SIGNS: T-max 97.4, heart rate is 101, blood pressure 154/78, and respirations are 20. HEENT: Head is atraumatic and normocephalic. Pupils are reactive to light. NECK: Supple. JVP is flat. LUNGS: Clear. No crackles or rales present. HEART: S1 and S2 is regular. No murmur appreciated. ABDOMEN: Soft and nontender. No guarding. No rigidity present. EXTREMITIES: Have no edema. LABORATORY DATA: Shows white count is 14.1, he did come with a white count of 27.2, then 14.1 today. Chemistry shows sodium 138, potassium 3.4, chloride 99, CO2 is 30 and creatinine is 0.8. His blood culture and urine culture all remain negative. The serology done shows influenza negative, Legionella is negative, mycoplasma IgM is positive, 2/2 but it is not significant. He also had a head CT and chest x-ray. Chest x-ray shows suspicious for right middle lobe blunting of the right costophrenic angle, could be due to small effusions. Abdominal CT was done, which shows [id number] bladder wall thickening, moderately enlarged prostate, mild constipation nothing else. PLAN: So at this time, he has been treated for pneumonia. I would order a repeat chest x-ray for tomorrow, so that we can start to cut down on the antibiotics. We will get chest x-ray in a.m. He is on vancomycin and we will renew it for now. We will follow. We will get a chest x-ray done. Tracey Nguyễn MD
[2016-11-20] MEDS: (Novolin R) Insulin Human Regular 100 units/ml vial SC SCH ×4 (08:31→21:40)
--- NOTE | 2016-11-20 08:32 | RAD ---
PROCEDURE: CHEST RADIOGRAPH, 1 VIEW HISTORY: follow up pneumonia COMPARISON: 11/14/2016 FINDINGS: LUNGS: Right hilar prominence. Prominent patchy consolidative changes in the right hilar region extending into the midlung zone suggestive for underlying infiltrate. Underlying mass lesion not excluded. Post treatment followup study and or correlation with chest CT may be helpful if clinically indicated. Left suprahilar prominence. Patchy increased markings at the lung bases with linear atelectatic changes at the left lung base. Question trace right pleural effusion. Biapical pleural thickening. PLEURA: As above. CARDIOVASCULAR: Cardiomegaly. Calcification at the aortic knob. OSSEOUS STRUCTURES: No significant abnormalities. VISUALIZED UPPER ABDOMEN: Normal. OTHER FINDINGS: None. IMPRESSION: Right hilar prominence. Prominent patchy consolidative changes in the right hilar region extending into the midlung zone suggestive for underlying infiltrate. Underlying mass lesion not excluded. Post treatment followup study and or correlation with chest CT may be helpful if clinically indicated. Left suprahilar prominence. Patchy increased markings at the lung bases with linear atelectatic changes at the left lung base. Question trace right pleural effusion. Biapical pleural thickening.
[2016-11-20] MEDS: Cefepime IV 2 gm in Dextrose 2 GM/100 ML BAG IVPB SCH ×2 (10:23→21:43)
[2016-11-20] MEDS: Saccharomyces Boulardi 250 mg Cap PO SCH ×2 (10:24→17:35)
[2016-11-20] MEDS: guaiFENesin 600 mg ER Tab PO SCH ×2 (10:26→17:36)
[2016-11-20] MEDS: Pantoprazole 40 mg EC Tab PO SCH (10:28)
[2016-11-20] MEDS ORDERED: Potassium Chloride 20 mEq ER Tab PO ONE (11:15)
[2016-11-20 11:35] LABS: BASO # 0.1 K/uL (0.0-0.2); BASO % 0.6 % (0.0-2.0); EOS # 0.7 K/uL (0.0-0.7); EOS % 6.2 % (0.0-4.0); HEMATOCRIT 34.4 % (35.0-51.0); LYMPH # 0.8 K/uL (1.0-4.3); LYMPH % 7.5 % (20.0-40.0); MEAN CELL VOLUME 90.1 fL (80.0-94.0); MEAN CORPUSCULAR HEMOGLOBIN 31.1 pg (27.0-31.0); MEAN CORPUSCULAR HGB CONC 34.5 g/dL (33.0-37.0); MEAN PLATELET VOLUME 8.5 fL (7.2-11.7); MONO # 1.2 K/uL (0.0-0.8); MONO % 10.9 % (0.0-10.0); PLATELET COUNT 354 K/uL (130-400); RED CELL DISTRIBUTION WIDTH 13.2 % (11.5-14.5); WHITE BLOOD COUNT 11.3 K/uL (4.8-10.8)
[2016-11-20] MEDS ORDERED: Vancomycin 1 gm/NS 200 ml 1 GM/200 ML BAG IVPB STA (11:46)
[2016-11-20 11:52] LABS: ALB/GLOB RATIO 1.1 (1.0-2.1); ALKALINE PHOSPHATASE 63 U/L (38-126); ALT/SGPT 30 U/L (21-72); AST/SGOT 18 U/L (17-59); BILIRUBIN,TOTAL 0.5 mg/dL (0.2-1.3); BLOOD UREA NITROGEN 9 mg/dL (9-20); CALCIUM 9.2 mg/dl (8.6-10.4); CARBON DIOXIDE 28 mmol/L (22-30); CHLORIDE 94 mmol/L (98-107); GFR AFRICAN-AMERICAN > 60; GLUCOSE,RANDOM 322 mg/dL (75-110); MAGNESIUM 2.2 mg/dL (1.6-2.3); PHOSPHOROUS 1.9 mg/dL (2.5-4.5); POTASSIUM 3.7 mmol/L (3.6-5.2); SODIUM 133 mmol/L (132-148); TOTAL PROTEIN 6.5 g/dL (6.3-8.3)
[2016-11-20] MEDS: Azithromycin 500 MG in Sodium Chloride 0.9% 250 ML IVPB SCH (11:54)
[2016-11-20 12:12] LABS: EOSINOPHIL 5 % (0-4); NEUTROPHIL 78 % (50-75); TOTAL CELLS COUNTED 100
--- NOTE | 2016-11-20 13:47 | CT ---
CT chest without IV contrast Indication: Pneumonia. Technique: Contiguous axial images were obtained through the chest without intravenous contrast enhancement. Sagittal and coronal reconstructions were generated and reviewed. This CT exam was performed using 1 or more of the falling dose reduction techniques: Automated exposure control, adjustment of the MAA and/or kV according to patient size, and/or use of iterative reconstruction technique. Radiation dose (DLP): 292.53 MGy-cm. Comparison: Chest x-ray performed 11/19/16 ; lung bases on CT of the abdomen and pelvis performed without IV contrast on 11/14/16 Findings: Visualized portions of the inferior thyroid gland appear unremarkable. The unenhanced mediastinal and hilar vascular structures appear grossly unremarkable. The heart appears within normal limits of size. Sub cm mediastinal lymph nodes, nonspecific. 7 mm calcified left hilar node or granuloma. Atherosclerotic calcifications of the aorta. Cavitary consolidation involving the right middle and upper lobes with surrounding alveolar opacities evident. Consolidation contains air-fluid levels. Small right pleural effusion. No pneumothorax. Limited visualization of the noncontrast upper abdomen demonstrates adrenal gland hypertrophy. Degenerative changes of the spine. Impression: Multi lobar cavitary consolidation involving the right upper and middle lobes as above. Appearance favored to reflect infection (bacterial, or fungal in an immunocompromised patient) however malignant neoplasm cannot be excluded. Recommend clinical correlation and follow-up to complete resolution. Small right pleural effusion.
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
--- NOTE | 2016-11-20 15:50 | PCM.URO ---
Urology Progress Note - Objective Lab Results Last 24 Hours: Laboratory Results - last 24 hr 11/15/16 11/19/16 11/19/16 07:47 15:22 16:25 WBC RBC Hgb Hct MCV MCH MCHC RDW Plt Count MPV Neut % (Auto) Lymph % (Auto) [place] % (Auto) Eos % (Auto) Baso % (Auto) Neut # Lymph # [place] # Eos # Baso # Neutrophils % (Manual) Band Neutrophils % Lymphocytes % (Manual) Monocytes % (Manual) Eosinophils % (Manual) Platelet Estimate RBC Morphology Sodium Potassium Chloride Carbon Dioxide Anion Gap BUN Creatinine Est GFR ( Amer) Est GFR (Non-Af Amer) POC Glucose (mg/dL) 369 H Random Glucose Calcium Phosphorus Magnesium Total Bilirubin AST ALT Alkaline Phosphatase Total Protein Albumin Globulin Albumin/Globulin Ratio Prostate Specific Ag 20.7 H Mycoplasma pneumon IgM 202 11/19/16 11/20/16 11/20/16 21:07 07:09 11:27 WBC 11.3 H RBC 3.81 L Hgb 11.9 L Hct 34.4 L MCV 90.1 MCH 31.1 H MCHC 34.5 RDW 13.2 Plt Count 354 MPV 8.5 Neut % (Auto) 74.8 Lymph % (Auto) 7.5 L [place] % (Auto) 10.9 H Eos % (Auto) 6.2 H Baso % (Auto) 0.6 Neut # 8.5 H Lymph # 0.8 L [place] # 1.2 H Eos # 0.7 Baso # 0.1 Neutrophils % (Manual) 78 H Band Neutrophils % 1 Lymphocytes % (Manual) 7 L Monocytes % (Manual) 9 Eosinophils % (Manual) 5 H Platelet Estimate Normal RBC Morphology Normal Sodium Potassium Chloride Carbon Dioxide Anion Gap BUN Creatinine Est GFR ( Amer) Est GFR (Non-Af Amer) POC Glucose (mg/dL) 204 H 353 H Random Glucose Calcium Phosphorus Magnesium Total Bilirubin AST ALT Alkaline Phosphatase Total Protein Albumin Globulin Albumin/Globulin Ratio Prostate Specific Ag Mycoplasma pneumon IgM 11/20/16 11/20/16 11:27 11:39 WBC RBC Hgb Hct MCV MCH MCHC RDW Plt Count MPV Neut % (Auto) Lymph % (Auto) [place] % (Auto) Eos % (Auto) Baso % (Auto) Neut # Lymph # [place] # Eos # Baso # Neutrophils % (Manual) Band Neutrophils % Lymphocytes % (Manual) Monocytes % (Manual) Eosinophils % (Manual) Platelet Estimate RBC Morphology Sodium 133 Potassium 3.7 Chloride 94 L Carbon Dioxide 28 Anion Gap 15 BUN 9 Creatinine 0.9 Est GFR ( Amer) > 60 Est GFR (Non-Af Amer) > 60 POC Glucose (mg/dL) 313 H Random Glucose 322 H Calcium 9.2 Phosphorus 1.9 L Magnesium 2.2 Total Bilirubin 0.5 AST 18 ALT 30 Alkaline Phosphatase 63 Total Protein 6.5 Albumin 3.4 L Globulin 3.0 Albumin/Globulin Ratio 1.1 Prostate Specific Ag Mycoplasma pneumon IgM Intake & Output: Intake & Output 11/19/16 11/20/16 11/20/16 18:59 06:59 18:59 Intake Total 950 1050 600 Output Total 1000 3000 1400 Balance - Intake: Intake, IV Amount 350 300 Left Antecubital 300 Right Forearm 350 Oral 600 750 600 Output: Urine 1000 3000 1400 Urethral (Prieto) 1000 2000 Other: # Voids Urethral (Prieto) 6 Vital Signs: Vital Signs - 24 hr 11/19/16 11/19/16 11/20/16 16:00 17:45 00:30 Temperature 97.1 F L Pulse Rate 85 Respiratory 20 Rate Blood Pressure 154/78 H 154/78 H 161/86 H O2 Sat by Pulse 98 Oximetry 11/20/16 11/20/16 11/20/16 01:15 08:00 10:25 Temperature 98.1 F Pulse Rate 86 96 H Respiratory 20 Rate Blood Pressure 153/75 H 155/79 H 155/79 H O2 Sat by Pulse 96 95 Oximetry 11/20/16 12:30 Temperature Pulse Rate Respiratory Rate Blood Pressure 145/69 O2 Sat by Pulse Oximetry
[2016-11-20] MEDS ORDERED: Albuterol HFA 90 mcg/actuation (8 g) IH PRN (16:01)
[2016-11-20] MEDS ORDERED: [UNRECOGNIZED DRUG - OTHER] INH PRN (17:15)
[2016-11-21 07:51] LABS: BASO # 0.1 K/uL (0.0-0.2); BASO % 0.6 % (0.0-2.0); EOS # 0.9 K/uL (0.0-0.7); EOS % 7.6 % (0.0-4.0); HEMATOCRIT 36.3 % (35.0-51.0); LYMPH # 1.2 K/uL (1.0-4.3); MEAN CELL VOLUME 90.5 fL (80.0-94.0); MEAN CORPUSCULAR HEMOGLOBIN 30.9 pg (27.0-31.0); MEAN CORPUSCULAR HGB CONC 34.2 g/dL (33.0-37.0); MEAN PLATELET VOLUME 8.4 fL (7.2-11.7); MONO # 1.4 K/uL (0.0-0.8); MONO % 11.9 % (0.0-10.0); NRBC % 0.1 % (0.0-2.0); PLATELET COUNT 405 K/uL (130-400); RED CELL DISTRIBUTION WIDTH 13.3 % (11.5-14.5); WHITE BLOOD COUNT 12.1 K/uL (4.8-10.8)
[2016-11-21 08:23] LABS: CHLORIDE 92 mmol/L (98-107); POTASSIUM 3.8 mmol/L (3.6-5.2); SODIUM 136 mmol/L (132-148)
[2016-11-21 08:25] LABS: BILIRUBIN,TOTAL 0.6 mg/dL (0.2-1.3); CARBON DIOXIDE 29 mmol/L (22-30); GFR AFRICAN-AMERICAN > 60
[2016-11-21] MEDS: (Novolin R) Insulin Human Regular 100 units/ml vial SC SCH ×4 (08:25→22:28)
[2016-11-21 08:26] LABS: ALB/GLOB RATIO 1.1 (1.0-2.1); ALKALINE PHOSPHATASE 71 U/L (38-126); ALT/SGPT 37 U/L (21-72); AST/SGOT 24 U/L (17-59); BLOOD UREA NITROGEN 6 mg/dL (9-20); CALCIUM 8.9 mg/dl (8.6-10.4); GLUCOSE,RANDOM 313 mg/dL (75-110); MAGNESIUM 2.1 mg/dL (1.6-2.3)
[2016-11-21] MEDS ORDERED: Bisacodyl 5mg EC Tab PO ONE (09:30)
[2016-11-21] MEDS ORDERED: Vancomycin 1 gm/NS 200 ml 1 GM/200 ML BAG IVPB SCH (10:00)
[2016-11-21] MEDS: Cefepime IV 2 gm in Dextrose 2 GM/100 ML BAG IVPB SCH ×2 (10:05→22:26)
[2016-11-21] MEDS: Saccharomyces Boulardi 250 mg Cap PO SCH ×2 (11:23→18:15)
[2016-11-21] MEDS: guaiFENesin 600 mg ER Tab PO SCH ×2 (11:23→18:15)
[2016-11-21] MEDS: Pantoprazole 40 mg EC Tab PO SCH (11:24)
[2016-11-21 11:44] LABS: EOSINOPHIL 5 % (0-4); MYELOCYTE 2 % (0-0); TOTAL CELLS COUNTED 100
[2016-11-21 11:49] LABS: NEUTROPHIL 61 % (50-75)
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
[2016-11-21] MEDS: Azithromycin 500 MG in Sodium Chloride 0.9% 250 ML IVPB SCH (13:34)
[2016-11-21] MEDS ORDERED: Azithromycin 500 MG in Sodium Chloride 0.9% 250 ML IVPB SCH (14:00)
[2016-11-21] MEDS ORDERED: Diphenhydramine 1% Cream (1 oz) TOP PRN (15:41)
[2016-11-21] MEDS: Vancomycin 1 gm/NS 200 ml 1 GM/200 ML BAG IVPB SCH (20:02)
--- NOTE | 2016-11-21 21:06 | CP.PCM.PN ---
Subjective - Date & Time of Evaluation Date of Evaluation: 11/21/16 Time of Evaluation: 05:15 - Subjective Subjective: dictated Objective - Vital Signs/Intake and Output Vital Signs (last 24 hours): Temp Pulse Resp BP Pulse Ox 98.1 F 95 H 20 144/72 94 L 11/21/16 15:00 11/21/16 15:00 11/21/16 15:00 11/21/16 18:15 11/21/16 15:00 Intake and Output: 11/21/16 11/22/16 18:59 06:59 Intake Total 1030 Balance 1030 - Medications Medications: Current Medications Acetaminophen (Tylenol 325mg Tab) 650 mg PO Q6 PRN PRN Reason: Fever >100.4 F Last Admin: 11/21/16 04:10 Dose: 650 mg Amlodipine Besylate (Norvasc) 5 mg PO BID [facility] Last Admin: 11/21/16 18:15 Dose: 5 mg Docusate Sodium (Colace) 100 mg PO TID [facility] Last Admin: 11/21/16 18:14 Dose: 100 mg Finasteride (Proscar) 5 mg PO DAILY [facility] Last Admin: 11/21/16 11:24 Dose: 5 mg Gabapentin (Neurontin) 300 mg PO TID [facility] Last Admin: 11/21/16 18:15 Dose: 300 mg Guaifenesin (Mucinex La) 600 mg PO BID [facility] Last Admin: 11/21/16 18:15 Dose: 600 mg Haloperidol (Haldol) 5 mg PO Q4H PRN PRN Reason: Anxiety Haloperidol Lactate (Haldol) 5 mg IM Q4H PRN PRN Reason: Agitation Last Admin: 11/21/16 18:11 Dose: 5 mg Heparin Sodium (Porcine) (Heparin) 5,000 units SC Q8 [facility] Last Admin: 11/21/16 14:59 Dose: 5,000 units Home Med (Patient's Own Inhalation Solution) 0 ml INH RQ4 PRN PRN Reason: Wheezing Cefepime HCl (Maxipime Iv 2 Gm Premix) 2 gm in 100 mls @ 100 mls/hr IVPB Q12H [facility] Last Admin: 11/21/16 10:05 Dose: 100 mls/hr Vancomycin/Sodium Chloride (Vancocin) 1 gm in 200 mls @ 133.333 mls/hr IVPB Q12H [facility] Stop: 11/26/16 20:01 Last Admin: 11/21/16 20:02 Dose: 133.333 mls/hr Azithromycin 500 mg/ Sodium (Chloride) 250 mls @ 166.667 mls/hr IVPB Q24H [facility] Last Admin: 11/21/16 14:58 Dose: 166.667 mls/hr Insulin Human Regular (Novolin R) 0 unit SC ACHS DANISHA PRN Reason: Protocol Last Admin: 11/21/16 18:04 Dose: Not Given Ipratropium [place] (Atrovent) 0.5 mg IH RQ6 PRN PRN Reason: Shortness of Breath Last Admin: 11/19/16 08:54 Dose: 0.5 mg Lisinopril (Zestril) 10 mg PO DAILY [facility] Last Admin: 11/21/16 11:23 Dose: 10 mg Lorazepam (Ativan) 1 mg IVP Q6H PRN PRN Reason: Anxiety Last Admin: 11/21/16 18:24 Dose: 1 mg Lorazepam (Ativan) 4 mg PO Q6H PRN PRN Reason: Agitation Last Admin: 11/21/16 14:57 Dose: 4 mg Metoprolol Tartrate (Lopressor) 25 mg PO BID [facility] Last Admin: 11/21/16 18:15 Dose: 25 mg Pantoprazole Sodium (Protonix Ec Tab) 40 mg PO DAILY [facility] Last Admin: 11/21/16 11:24 Dose: 40 mg Saccharomyces Boulardii (Florastor) 250 mg PO BID [facility] Last Admin: 11/21/16 18:15 Dose: 250 mg Tamsulosin HCl (Flomax) 0.4 mg PO DAILY [facility] Last Admin: 11/21/16 11:24 Dose: 0.4 mg Trazodone HCl (Desyrel) 50 mg PO HS [facility] Last Admin: 11/20/16 21:38 Dose: 50 mg Zinc Acetate/Diphenhydramine (Benadryl 1% Zinc Acetate -0.1%) 0 cre TOP TID PRN PRN Reason: Itching / Pruritus - Labs Labs: 11/21/16 07:42 11/21/16 07:42
--- NOTE | 2016-11-22 02:16 | PN ---
DATE: SUBJECTIVE: The patient became very confused today and resident called me. He was very confused and I went to see him. I was asking the nurse if he had got in any sedation and if they already had done ammonia level, he wanted to get out of bed and he was not in any breathing trouble however. PHYSICAL EXAMINATION: VITAL SIGNS: T-max was 98, pulse 95, blood pressure 141/86, respirations are 20 and saturation was 94%. GENERAL: I think he was confused and appeared . HEENT: Head is atraumatic. NECK: Supple. LUNGS: Clear. No crackles or rales present. HEART: S1 and S2 is regular. ABDOMEN: Soft and nontender. No guarding or no rigidity present. EXTREMITIES: Had no edema. LABORATORY DATA: He has been here from 11/14/2016 he is 7 days in. He has been on antibiotics. His white count is 12.1, hemoglobin 12.4, hematocrit 36.3 and platelet count is 405. Bands are however reported 12 today. He has been on antibiotics and so his sugar was 162. Serology has been done and Mycoplasma IgG, IgM are all negative. Influenza is negative. Micro cultures have been all negative. I want to see the last chest CT which was done yesterday shows multilobar cavitary consolidation involving the right upper and middle lobe has above appearance, favor to reflect infection, bacterial and fungal in an immunocompromised patient; however, malignant neoplasm cannot be excluded. He has cavitary consolidation contains air fluid levels, small right pleural effusion, no pneumothorax. He had chest x-ray done at that time. So, at this time this is saying suspicious for right middle lobe pneumonia, blunting of the right costophrenic would be due to small effusion. This chest CT is showing air fluid level and a cavitary lesion, so I would order a HIV and gold QuantiFERON test and see what the pulmonary makes out of it and if he agrees we will put him in isolation. He also has prostate problems, he is being following by Dr. Murphy and he is on antibiotics. His antibiotics are Zithromax, cefepime, and vancomycin. He has received enough cefepime. I will continue cefepime and vancomycin, but I would discontinue the Zithromax. If it is a cavitary lesion, we need to rule out TB as well as malignancy or abscess. Tracey Nguyễn MD [facility] # [id number]
[2016-11-22] MEDS: (Novolin R) Insulin Human Regular 100 units/ml vial SC SCH ×4 (07:30→21:39)
[2016-11-22 07:37] LABS: BASO # 0.1 K/uL (0.0-0.2); BASO % 0.9 % (0.0-2.0); EOS # 0.6 K/uL (0.0-0.7); EOS % 5.9 % (0.0-4.0); HEMATOCRIT 35.6 % (35.0-51.0); LYMPH # 1.3 K/uL (1.0-4.3); LYMPH % 12.9 % (20.0-40.0); MEAN CELL VOLUME 90.9 fL (80.0-94.0); MEAN CORPUSCULAR HGB CONC 34.1 g/dL (33.0-37.0); MEAN PLATELET VOLUME 8.6 fL (7.2-11.7); MONO # 1.6 K/uL (0.0-0.8); MONO % 15.7 % (0.0-10.0); RED CELL DISTRIBUTION WIDTH 13.1 % (11.5-14.5); WHITE BLOOD COUNT 10.1 K/uL (4.8-10.8)
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
[2016-11-22 08:07] LABS: CHLORIDE 94 mmol/L (98-107); SODIUM 137 mmol/L (132-148)
[2016-11-22 08:10] LABS: ALKALINE PHOSPHATASE 59 U/L (38-126); ALT/SGPT 41 U/L (21-72); AST/SGOT 28 U/L (17-59); BILIRUBIN,TOTAL 0.7 mg/dL (0.2-1.3); BLOOD UREA NITROGEN 9 mg/dL (9-20); CARBON DIOXIDE 30 mmol/L (22-30); GFR AFRICAN-AMERICAN > 60; GLUCOSE,RANDOM 230 mg/dL (75-110); TOTAL PROTEIN 6.7 g/dL (6.3-8.3)
[2016-11-22 08:11] LABS: CALCIUM 8.9 mg/dl (8.6-10.4); MAGNESIUM 2.1 mg/dL (1.6-2.3); PHOSPHOROUS 3.1 mg/dL (2.5-4.5)
[2016-11-22] MEDS: Vancomycin 1 gm/NS 200 ml 1 GM/200 ML BAG IVPB SCH ×2 (08:45→19:15)
[2016-11-22] MEDS: Saccharomyces Boulardi 250 mg Cap PO SCH ×2 (09:04→18:44)
[2016-11-22] MEDS: Cefepime IV 2 gm in Dextrose 2 GM/100 ML BAG IVPB SCH ×2 (10:09→22:58)
[2016-11-22] MEDS: guaiFENesin 600 mg ER Tab PO SCH ×2 (10:14→18:43)
[2016-11-22] MEDS: Pantoprazole 40 mg EC Tab PO SCH (10:26)
[2016-11-22] MEDS ORDERED: Tuberculin 5 Units/0.1 ml Inj ID ONE (11:00)
[2016-11-22] MEDS ORDERED: Magnesium Citrate Oral SOL (300 ml) PO ONE (11:47)
[2016-11-22] MEDS: Clindamycin 600mg/50ml NS 600 MG/50 ML BAG IVPB SCH ×2 (12:16→21:25)
[2016-11-22] MEDS ORDERED: Clindamycin 600mg/50ml D5W 600 MG/50 ML VIAL IVPB SCH (12:30)
--- NOTE | 2016-11-22 14:01 | PCM.PYCHPN ---
Psychiatric Progress Note - Psychiatric Progress Note Patient seen today, length of contact: 18 mins Patient Chief Complaint: I don't feel good doctor" Problems Identified/Issues Discussed: The pt is seen, chart reviewed, case discussed with staff. Patient reports that he is not sleeping well and states " I need my sleeping pills". Pt reports taking Xanax 5mg Q6 for his sleep for approximately 2 months. Pt reports that he wants to get better so that he can return home. Pt states that he feels depressed and thinks people are out to hurt him, however , he only sees these people in his dreams. Pt denies SI. Support given, CBT and OK used briefly After care discussed. Medication Change: Yes (Librium taper and Remeron started ) Medical Record Reviewed: Yes Mental Status Examination - Cognitive Function Orientation: Person, Place Memory: Intact Attention: WNL Concentration: WNL Association: WNL Fund of Knowledge: WNL - Mood Mood: Depressed, Anxious - Affect Affect: Broad - Speech Speech: Appropriate - Formal Thought Process Formal Thought Process: Paranoia - Suicidal Ideation Suicidal Ideation: No - Homicidal Ideation Homicidal Ideation: No Goal/Treatment Plan - Goal/Treatment Plan Need for Continued Stay: Discharge may exacerbated symptoms Progress Toward Problem(s) and Goals/Treatment Plan: Start Remeron 7.5 mg PO HS DANISHA and Librium Taper 25 mg PO Q8H [facility] As needed medications Attend groups and activities Supportive therapy and psychoeducation OK for abstinence CBT for relapse prevention Encourage MAT Attend self-help groups as well
--- NOTE | 2016-11-22 17:35 | CP.PCM.PN ---
Subjective - Date & Time of Evaluation Date of Evaluation: 11/22/16 Time of Evaluation: 03:00 - Subjective Subjective: dictated Objective - Vital Signs/Intake and Output Vital Signs (last 24 hours): Temp Pulse Resp BP Pulse Ox 98 F 70 21 130/70 97 11/22/16 09:03 11/22/16 09:03 11/22/16 09:03 11/22/16 09:05 11/22/16 09:03 Intake and Output: 11/22/16 11/22/16 06:59 18:59 Intake Total 700 Output Total 3000 Balance -2300 - Medications Medications: Current Medications Acetaminophen (Tylenol 325mg Tab) 650 mg PO Q6 PRN PRN Reason: Fever >100.4 F Last Admin: 11/21/16 04:10 Dose: 650 mg Amlodipine Besylate (Norvasc) 5 mg PO BID [facility] Last Admin: 11/22/16 09:05 Dose: 5 mg Chlordiazepoxide (Librium) 25 mg PO Q8H [facility] PRN Reason: Taper Stop: 11/26/16 13:59 Last Admin: 11/22/16 15:00 Dose: 25 mg Docusate Sodium (Colace) 100 mg PO TID [facility] Last Admin: 11/22/16 15:00 Dose: 100 mg Finasteride (Proscar) 5 mg PO DAILY [facility] Last Admin: 11/22/16 10:14 Dose: 5 mg Gabapentin (Neurontin) 300 mg PO TID [facility] Last Admin: 11/22/16 15:00 Dose: 300 mg Guaifenesin (Mucinex La) 600 mg PO BID [facility] Last Admin: 11/22/16 10:14 Dose: 600 mg Haloperidol (Haldol) 5 mg PO Q4H PRN PRN Reason: Agitation Heparin Sodium (Porcine) (Heparin) 5,000 units SC Q12 [facility] Last Admin: 11/22/16 10:07 Dose: 5,000 units Home Med (Patient's Own Inhalation Solution) 0 ml INH RQ4 PRN PRN Reason: Wheezing Cefepime HCl (Maxipime Iv 2 Gm Premix) 2 gm in 100 mls @ 100 mls/hr IVPB Q12H [facility] Last Admin: 11/22/16 10:09 Dose: 100 mls/hr Vancomycin/Sodium Chloride (Vancocin) 1 gm in 200 mls @ 133.333 mls/hr IVPB Q12H [facility] Stop: 11/26/16 20:01 Last Admin: 11/22/16 08:45 Dose: 133.333 mls/hr Clindamycin Phosphate (Cleocin In Normal Saline Addvantage) 600 mg in 50 mls @ 100 mls/hr IVPB Q8H [facility] Last Admin: 11/22/16 12:16 Dose: 100 mls/hr Insulin Human Regular (Novolin R) 0 unit SC ACHS [facility] PRN Reason: Protocol Last Admin: 11/22/16 12:22 Dose: 2 unit Ipratropium [place] (Atrovent) 0.5 mg IH RQ6 PRN PRN Reason: Shortness of Breath Last Admin: 11/19/16 08:54 Dose: 0.5 mg Lisinopril (Zestril) 10 mg PO DAILY [facility] Last Admin: 11/22/16 09:04 Dose: 10 mg Lorazepam (Ativan) 1 mg IVP Q6H PRN PRN Reason: Anxiety Last Admin: 11/22/16 16:53 Dose: 1 mg Metoprolol Tartrate (Lopressor) 25 mg PO BID [facility] Last Admin: 11/22/16 09:05 Dose: 25 mg Mirtazapine (Remeron) 7.5 mg PO HS [facility] Ondansetron HCl (Zofran Inj) 4 mg IVP Q6H PRN PRN Reason: Nausea/Vomiting Pantoprazole Sodium (Protonix Ec Tab) 40 mg PO DAILY [facility] Last Admin: 11/22/16 10:26 Dose: 40 mg Saccharomyces Boulardii (Florastor) 250 mg PO BID [facility] Last Admin: 11/22/16 09:04 Dose: 250 mg Tamsulosin HCl (Flomax) 0.4 mg PO DAILY [facility] Last Admin: 11/22/16 09:04 Dose: 0.4 mg Trazodone HCl (Desyrel) 100 mg PO HS [facility] Zinc Acetate/Diphenhydramine (Benadryl 1% Zinc Acetate -0.1%) 0 cre TOP TID PRN PRN Reason: Itching / Pruritus - Labs Labs: 11/22/16 07:24 11/22/16 07:24
--- NOTE | 2016-11-22 20:22 | PN ---
DATE: SUBJECTIVE: The patient was on one-to-one. He was very confused, but he wanted to go to bathroom, as he had been constipated. Had no fever, no chills. No headaches. His CAT scan did show an air-fluid level and a cavity, so now he is in isolation. have been ordered. QuantiFERON has been ordered. He remains, however, on vancomycin and cefepime. Today, I see they have ordered clindamycin. I think we can take away the vancomycin. PHYSICAL EXAMINATION: VITAL SIGNS: He remains with T-max of 98.5, pulse 98, blood pressure 173/80, and respirations 20. HEENT: Head is atraumatic and normocephalic. NECK: Supple. LUNGS: Clear. Decreased breath sounds bilaterally. HEART: S1 and S2 regular. ABDOMEN: Soft, nontender. No guarding. No rigidity present. EXTREMITIES: Have no edema, clubbing, or cyanosis. He is little confused; however, cannot ask him much. So, we will wait for the sputum AFB and since he had pneumonia after that it is showing this cavity. I am not sure if we should get a pulmonary as well as cardiothoracic to look into it. Tracey Nguyễn MD
[2016-11-23] MEDS: Clindamycin 600mg/50ml NS 600 MG/50 ML BAG IVPB SCH ×3 (05:20→21:20)
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
[2016-11-23] MEDS: Saccharomyces Boulardi 250 mg Cap PO SCH ×3 (08:36→17:46)
[2016-11-23] MEDS: Pantoprazole 40 mg EC Tab PO SCH ×2 (08:37→10:17)
[2016-11-23] MEDS: guaiFENesin 600 mg ER Tab PO SCH ×3 (08:37→17:46)
[2016-11-23] MEDS: (Novolin R) Insulin Human Regular 100 units/ml vial SC SCH ×4 (08:39→23:54)
--- NOTE | 2016-11-23 09:17 | CON ---
DATE: HISTORY OF PRESENT ILLNESS: The patient comes to the hospital complaining of weakness, fatigue, tiredness, shortness of breath, and cough. The patient is receiving IV antibiotics. CT chest showed consolidation in the right upper lobe and right middle lobe with cavity. The patient is an ex-smoker. The patient is a very poor historian. Denies weight loss. Denies hemoptysis, hematemesis, or melena. PHYSICAL EXAMINATION: GENERAL: The patient is awake, alert, oriented. VITAL SIGNS: Temperature 98, pulse 90. HEENT: Within normal limits. NECK: Supple. CHEST: Symmetrical. HEART: Regular. ABDOMEN: Soft. EXTREMITIES: No edema. CAT scan shows consolidation and small cavity in the upper lobe. The patient probably has necrotizing pneumonia; rule out TB, rule out . Mario Bernal MD
[2016-11-23] MEDS: Cefepime IV 2 gm in Dextrose 2 GM/100 ML BAG IVPB SCH ×2 (10:39→21:31)
--- NOTE | 2016-11-23 11:18 | CT ---
PROCEDURE: CT HEAD WITHOUT CONTRAST. HISTORY: AMS COMPARISON: Comparison made with CT scan brain 11/15/2016 TECHNIQUE: Axial computed tomography images were obtained through the head/brain without intravenous contrast. Radiation dose: Total exam DLP = 1088.65 mGy-cm. This CT exam was performed using one or more of the following dose reduction techniques: Automated exposure control, adjustment of the mA and/or kV according to patient size, and/or use of iterative reconstruction technique. FINDINGS: HEMORRHAGE: No acute parenchymal, subarachnoid or extra-axial hemorrhage. BRAIN: Moderate diffuse/confluent chronic white matter ischemic changes are again seen extending peripherally into the deep and subcortical white matter both cerebral hemispheres. . Additionally, there are scattered bilateral basal nuclei and more discrete deep and subcortical for type infarcts as well. Moderate generalized volume loss. VENTRICLES: No obstructive type hydrocephalus. CALVARIUM: There are no acute calvarial fractures. PARANASAL SINUSES: Unremarkable as visualized. No significant inflammatory changes. MASTOID AIR CELLS: Re- demonstrated is underpneumatized sclerotic appearing left mastoid air complex with opacification of residual mastoid air cells OTHER FINDINGS: None. IMPRESSION: No acute intracranial hemorrhage. Moderate diffuse/confluent chronic white matter ischemic changes are again seen extending peripherally into the deep and subcortical white matter both cerebral hemispheres. . Additionally, there are scattered bilateral basal nuclei and more discrete deep and subcortical for type infarcts as well. Moderate generalized volume loss.
[2016-11-23 12:13] LABS: BASO # 0.1 K/uL (0.0-0.2); BASO % 0.7 % (0.0-2.0); EOS # 0.5 K/uL (0.0-0.7); EOS % 5.7 % (0.0-4.0); LYMPH # 1.3 K/uL (1.0-4.3); LYMPH % 13.6 % (20.0-40.0); MEAN CELL VOLUME 91.9 fL (80.0-94.0); MEAN CORPUSCULAR HEMOGLOBIN 31.1 pg (27.0-31.0); MEAN CORPUSCULAR HGB CONC 33.9 g/dL (33.0-37.0); MEAN PLATELET VOLUME 8.6 fL (7.2-11.7); MONO # 1.1 K/uL (0.0-0.8); NRBC % 0.1 % (0.0-2.0); RED CELL DISTRIBUTION WIDTH 13.6 % (11.5-14.5); WHITE BLOOD COUNT 9.5 K/uL (4.8-10.8)
[2016-11-23 12:36] LABS: CHLORIDE 94 mmol/L (98-107); POTASSIUM 4.5 mmol/L (3.6-5.2); SODIUM 138 mmol/L (132-148)
[2016-11-23 12:38] LABS: ALKALINE PHOSPHATASE 60 U/L (38-126); AST/SGOT 24 U/L (17-59); BILIRUBIN,TOTAL 0.6 mg/dL (0.2-1.3); CARBON DIOXIDE 31 mmol/L (22-30); GFR AFRICAN-AMERICAN > 60; TOTAL PROTEIN 6.8 g/dL (6.3-8.3)
[2016-11-23 12:39] LABS: ALT/SGPT 34 U/L (21-72); BLOOD UREA NITROGEN 12 mg/dL (9-20); CALCIUM 9.3 mg/dl (8.6-10.4); GLUCOSE,RANDOM 318 mg/dL (75-110)
--- NOTE | 2016-11-23 13:12 | RAD ---
PROCEDURE: Radiographs of the chest and abdomen (obstructive series) HISTORY: r/o bowel obstruction COMPARISON: Comparison made with the CT scan chest dated 11/20/2016 the TECHNIQUE: AP radiograph of the chest, with upright and supine radiographs of the abdomen. FINDINGS: CHEST: Multi lobar cavitary consolidation right upper and middle lobe less well seen compared to high-resolution CT scan chest ABDOMEN AND PELVIS: There is a large amount of stool seen throughout the at ascending and to a slightly lesser degree remaining colon consistent with fecal retention/constipation. . No gross free intraperitoneal air seen under the diaphragmatic surfaces. IMPRESSION: Multilobar cavitary consolidation changes right upper and middle lobe less well seen compared to high-resolution CT scan. Small right-sided effusion is also less well seen. Findings consistent with constipation.
--- NOTE | 2016-11-23 14:31 | PCM.PYCHPN ---
Psychiatric Progress Note - Psychiatric Progress Note Patient seen today, length of contact: 17 mins Patient Chief Complaint: I feel better, just a little anxious" Problems Identified/Issues Discussed: The pt is seen, chart reviewed, case discussed with staff. Patient reports that he is not sleeping well because he is feeling nervous and anxious. Pt is more alert today, and reports to be happy to have his family around. Pt denies SI and states that he does not believe anyone is after him or out to get him. Family was around and shared privately that they are concerned he also consumes cocaine. Support given, CBT and FL used briefly After care discussed. Medication Change: Yes (Detox medications change daily ) Medical Record Reviewed: Yes Mental Status Examination - Cognitive Function Orientation: Person, Place Memory: Intact Attention: WNL Concentration: WNL Association: WNL Fund of Knowledge: WNL - Mood Mood: Anxious - Affect Affect: Broad - Speech Speech: Appropriate - Formal Thought Process Formal Thought Process: No Impairment - Suicidal Ideation Suicidal Ideation: No - Homicidal Ideation Homicidal Ideation: No Goal/Treatment Plan - Goal/Treatment Plan Need for Continued Stay: Discharge may exacerbated symptoms Progress Toward Problem(s) and Goals/Treatment Plan: Continue Remeron 7.5 mg PO HS DANISHA and Librium Taper 25 mg PO Q8H DANISHA As needed medications Attend groups and activities Supportive therapy and psychoeducation FL for abstinence CBT for relapse prevention Encourage MAT Attend self-help groups as well
--- NOTE | 2016-11-23 19:03 | CP.PCM.PN ---
Subjective - Date & Time of Evaluation Date of Evaluation: 11/23/16 Time of Evaluation: 02:15 - Subjective Subjective: dictated Objective - Vital Signs/Intake and Output Vital Signs (last 24 hours): Temp Pulse Resp BP Pulse Ox 97.6 F 93 H 20 136/71 96 11/23/16 16:00 11/23/16 16:00 11/23/16 16:00 11/23/16 17:49 11/23/16 16:00 Intake and Output: 11/23/16 11/24/16 18:59 06:59 Intake Total 250 Balance 250 - Medications Medications: Current Medications Acetaminophen (Tylenol 325mg Tab) 650 mg PO Q6 PRN PRN Reason: Fever >100.4 F Last Admin: 11/23/16 17:47 Dose: 650 mg Amlodipine Besylate (Norvasc) 5 mg PO BID [facility] Last Admin: 11/23/16 17:46 Dose: 5 mg Chlordiazepoxide (Librium) 25 mg PO Q8H [facility] PRN Reason: Taper Stop: 11/26/16 13:59 Last Admin: 11/23/16 13:32 Dose: 25 mg Docusate Sodium (Colace) 100 mg PO TID [facility] Last Admin: 11/23/16 17:46 Dose: 100 mg Finasteride (Proscar) 5 mg PO DAILY [facility] Last Admin: 11/23/16 10:17 Dose: Not Given Gabapentin (Neurontin) 300 mg PO TID [facility] Last Admin: 11/23/16 17:47 Dose: 300 mg Guaifenesin (Mucinex La) 600 mg PO BID [facility] Last Admin: 11/23/16 17:46 Dose: 600 mg Haloperidol (Haldol) 5 mg PO Q4H PRN PRN Reason: Agitation Last Admin: 11/23/16 08:38 Dose: 5 mg Heparin Sodium (Porcine) (Heparin) 5,000 units SC Q12 [facility] Last Admin: 11/23/16 10:16 Dose: Not Given Home Med (Patient's Own Inhalation Solution) 0 ml INH RQ4 PRN PRN Reason: Wheezing Cefepime HCl (Maxipime Iv 2 Gm Premix) 2 gm in 100 mls @ 100 mls/hr IVPB Q12H [facility] Last Admin: 11/23/16 10:39 Dose: 100 mls/hr Clindamycin Phosphate (Cleocin In Normal Saline Addvantage) 600 mg in 50 mls @ 100 mls/hr IVPB Q8H [facility] Last Admin: 11/23/16 12:22 Dose: 100 mls/hr Insulin Human Regular (Novolin R) 0 unit SC ACHS [facility] PRN Reason: Protocol Last Admin: 11/23/16 16:29 Dose: Not Given Ipratropium [place] (Atrovent) 0.5 mg IH RQ6 PRN PRN Reason: Shortness of Breath Last Admin: 11/19/16 08:54 Dose: 0.5 mg Lisinopril (Zestril) 10 mg PO DAILY [facility] Last Admin: 11/23/16 10:17 Dose: Not Given Lorazepam (Ativan) 1 mg IVP Q6H PRN PRN Reason: Anxiety Last Admin: 11/23/16 16:47 Dose: 1 mg Metoprolol Tartrate (Lopressor) 25 mg PO BID [facility] Last Admin: 11/23/16 17:49 Dose: 25 mg Mirtazapine (Remeron) 7.5 mg PO HS [facility] Last Admin: 11/22/16 21:26 Dose: 7.5 mg Ondansetron HCl (Zofran Inj) 4 mg IVP Q6H PRN PRN Reason: Nausea/Vomiting Pantoprazole Sodium (Protonix Ec Tab) 40 mg PO DAILY [facility] Last Admin: 11/23/16 10:17 Dose: Not Given Saccharomyces Boulardii (Florastor) 250 mg PO BID [facility] Last Admin: 11/23/16 17:46 Dose: 250 mg Sodium Phosphate (Fleet Enema) 135 ml DC ONCE ONE Stop: 11/23/16 20:01 Tamsulosin HCl (Flomax) 0.4 mg PO DAILY [facility] Last Admin: 11/23/16 10:15 Dose: Not Given Trazodone HCl (Desyrel) 100 mg PO HS [facility] Last Admin: 11/22/16 21:28 Dose: 100 mg Zinc Acetate/Diphenhydramine (Benadryl 1% Zinc Acetate -0.1%) 0 cre TOP TID PRN PRN Reason: Itching / Pruritus - Labs Labs: 11/23/16 11:47 11/23/16 11:47
--- NOTE | 2016-11-23 23:28 | PN ---
INFECTIOUS DISEASE FOLLOWUP DATE: SUBJECTIVE: The patient's family members were around. They said he used to smoke a lot. Denied any alcohol, but seems like family members said they suspected him to smoking cocaine. I learnt also that his father of tuberculosis, but it was long ago. He is not coughing up much and unable to collect sputum. PPD was also placed, which is to be read in 48 hours, today it is negative. PHYSICAL EXAMINATION: VITAL SIGNS: T-max is 97.6, pulse 93, blood pressure 136/71. GENERAL: He was also n.p.o. and he was given Fleet Enema and he had obstructive series according to the resident and the patient was looking for food when I went to see him. He remains little confused, but he is awake, appeared to be in no acute respiratory distress. HEENT: Head is atraumatic and normocephalic. NECK: Supple. LUNGS: Clear. No crackles or rales present. HEART: S1 and S2 is regular. ABDOMEN: Soft and nontender. No guarding. No rigidity present. EXTREMITIES: Have no edema, clubbing, or cyanosis. LABORATORY DATA: White count is 9.5, hemoglobin 12.5, hematocrit 37, and platelet count is 491. Sodium is 138, potassium 4.5, chloride 94, CO2 is 31,anion gap is 18, BUN is 12, and creatinine is 0.9. He had obstructive series today, which revealed findings consistent with constipation, so they gave enema and his chest CT revealed a fluid level in a cavity. Multilobar cavity consolidation involving the right upper and middle lobes as above, appearance, favor to reflect infection, bacterial or fungal in an immunocompromised patient; however, malignant neoplasm cannot be excluded. PLAN: Recommend clinical correlation or follow up till complete resolution. There is cavity involving the right middle and upper with surrounding alveolar opacities evident. Consolidation contained a fluid level, small right pleural effusion, so he did come in with very severe bilateral pneumonia and it could possibly be bacterial. We will check the procalcitonin level again. I think they did one when he came and continue antibiotics. He did come with a very high white count and was in delirium and could have been drug withdrawals. We will follow. Tracey Nguyễn MD [facility] # [id number]
[2016-11-24] MEDS: Clindamycin 600mg/50ml NS 600 MG/50 ML BAG IVPB SCH ×3 (03:38→20:30)
[2016-11-24] MEDS: Ipratropium 0.02% Inhal Soln (0.5 mg/2.5 ml) UD IH PRN (06:19)
[2016-11-24 08:33] LABS: CHLORIDE 93 mmol/L (98-107); POTASSIUM 4.1 mmol/L (3.6-5.2); SODIUM 137 mmol/L (132-148)
[2016-11-24 08:35] LABS: AST/SGOT 22 U/L (17-59); BILIRUBIN,TOTAL 0.6 mg/dL (0.2-1.3); CARBON DIOXIDE 30 mmol/L (22-30); GFR AFRICAN-AMERICAN > 60
[2016-11-24 08:36] LABS: ALKALINE PHOSPHATASE 64 U/L (38-126); ALT/SGPT 32 U/L (21-72); BLOOD UREA NITROGEN 14 mg/dL (9-20); CALCIUM 9.2 mg/dl (8.6-10.4); GLUCOSE,RANDOM 246 mg/dL (75-110); PHOSPHOROUS 3.8 mg/dL (2.5-4.5); TOTAL PROTEIN 7.2 g/dL (6.3-8.3)
[2016-11-24 08:38] LABS: BASO # 0.1 K/uL (0.0-0.2); BASO % 0.6 % (0.0-2.0); EOS # 0.5 K/uL (0.0-0.7); HEMATOCRIT 36.9 % (35.0-51.0); LYMPH # 1.6 K/uL (1.0-4.3); LYMPH % 17.9 % (20.0-40.0); MEAN CELL VOLUME 91.1 fL (80.0-94.0); MEAN CORPUSCULAR HEMOGLOBIN 31.7 pg (27.0-31.0); MEAN CORPUSCULAR HGB CONC 34.8 g/dL (33.0-37.0); MEAN PLATELET VOLUME 8.3 fL (7.2-11.7); MONO # 1.2 K/uL (0.0-0.8); MONO % 13.5 % (0.0-10.0); RED CELL DISTRIBUTION WIDTH 13.2 % (11.5-14.5); WHITE BLOOD COUNT 9.1 K/uL (4.8-10.8)
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
[2016-11-24] MEDS: Pantoprazole 40 mg EC Tab PO SCH (09:47)
[2016-11-24] MEDS: guaiFENesin 600 mg ER Tab PO SCH ×2 (09:47→18:38)
[2016-11-24] MEDS: Saccharomyces Boulardi 250 mg Cap PO SCH ×2 (09:47→18:37)
[2016-11-24] MEDS: (Novolin R) Insulin Human Regular 100 units/ml vial SC SCH ×4 (09:48→22:40)
[2016-11-24] MEDS: Cefepime IV 2 gm in Dextrose 2 GM/100 ML BAG IVPB SCH ×2 (11:00→22:37)
--- NOTE | 2016-11-24 11:12 | RAD ---
HISTORY: RML RLL PNA COMPARISON: No prior. TECHNIQUE: Chest PA and lateral FINDINGS: LUNGS: Apparent improvement previously noted right middle and lower lobe cavitary infiltrates and right effusion PLEURA: As above. Number pneumothorax apparent. CARDIOVASCULAR: Normal. OSSEOUS STRUCTURES: No significant abnormalities. VISUALIZED UPPER ABDOMEN: Normal. OTHER FINDINGS: None. IMPRESSION: Continued improvement right middle and lower lobe cavitary infiltrates and right-sided effusion
[2016-11-25] MEDS: Clindamycin 600mg/50ml NS 600 MG/50 ML BAG IVPB SCH ×3 (04:39→21:13)
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
[2016-11-25 08:37] LABS: BASO # 0.1 K/uL (0.0-0.2); BASO % 0.6 % (0.0-2.0); EOS # 0.5 K/uL (0.0-0.7); EOS % 5.7 % (0.0-4.0); HEMATOCRIT 37.1 % (35.0-51.0); LYMPH # 1.4 K/uL (1.0-4.3); LYMPH % 15.1 % (20.0-40.0); MEAN CELL VOLUME 91.4 fL (80.0-94.0); MEAN CORPUSCULAR HGB CONC 33.9 g/dL (33.0-37.0); MEAN PLATELET VOLUME 8.5 fL (7.2-11.7); MONO # 1.1 K/uL (0.0-0.8); MONO % 12.5 % (0.0-10.0); NRBC % 0.1 % (0.0-2.0); RED CELL DISTRIBUTION WIDTH 13.3 % (11.5-14.5); WHITE BLOOD COUNT 9.2 K/uL (4.8-10.8)
[2016-11-25 09:08] LABS: CHLORIDE 93 mmol/L (98-107); POTASSIUM 4.7 mmol/L (3.6-5.2); SODIUM 138 mmol/L (132-148)
[2016-11-25 09:10] LABS: BILIRUBIN,TOTAL 0.6 mg/dL (0.2-1.3); CARBON DIOXIDE 30 mmol/L (22-30); GFR AFRICAN-AMERICAN > 60
[2016-11-25 09:11] LABS: ALKALINE PHOSPHATASE 62 U/L (38-126); ALT/SGPT 33 U/L (21-72); AST/SGOT 27 U/L (17-59); BLOOD UREA NITROGEN 13 mg/dL (9-20); CALCIUM 9.2 mg/dl (8.6-10.4); GLUCOSE,RANDOM 276 mg/dL (75-110); MAGNESIUM 1.9 mg/dL (1.6-2.3); PHOSPHOROUS 3.4 mg/dL (2.5-4.5); TOTAL PROTEIN 6.9 g/dL (6.3-8.3)
[2016-11-25] MEDS: (Novolin R) Insulin Human Regular 100 units/ml vial SC SCH ×4 (09:43→21:13)
[2016-11-25] MEDS: Pantoprazole 40 mg EC Tab PO SCH (09:44)
[2016-11-25] MEDS: guaiFENesin 600 mg ER Tab PO SCH ×2 (09:44→17:11)
[2016-11-25] MEDS: Saccharomyces Boulardi 250 mg Cap PO SCH ×2 (09:44→17:11)
[2016-11-25] MEDS ORDERED: Bisacodyl 5mg EC Tab PO ONE (11:00)
[2016-11-25] MEDS: Cefepime IV 2 gm in Dextrose 2 GM/100 ML BAG IVPB SCH ×2 (11:26→23:42)
[2016-11-25] MEDS ORDERED: Simethicone 80 mg Chewtab PO ONE (11:30)
[2016-11-26] MEDS: Clindamycin 600mg/50ml NS 600 MG/50 ML BAG IVPB SCH ×2 (03:38→13:10)
[2016-11-26] MEDS: Ipratropium 0.02% Inhal Soln (0.5 mg/2.5 ml) UD IH PRN ×2 (07:28→16:25)
[2016-11-26 07:32] LABS: ALKALINE PHOSPHATASE 52 U/L (38-126); ALT/SGPT 34 U/L (21-72); AST/SGOT 33 U/L (17-59); BILIRUBIN,TOTAL 0.3 mg/dL (0.2-1.3); BLOOD UREA NITROGEN 17 mg/dL (9-20); CALCIUM 9.3 mg/dl (8.6-10.4); CARBON DIOXIDE 31 mmol/L (22-30); CHLORIDE 93 mmol/L (98-107); GFR AFRICAN-AMERICAN > 60; GLUCOSE,RANDOM 302 mg/dL (75-110); MAGNESIUM 1.9 mg/dL (1.6-2.3); PHOSPHOROUS 3.5 mg/dL (2.5-4.5); POTASSIUM 4.9 mmol/L (3.6-5.2); SODIUM 132 mmol/L (132-148); TOTAL PROTEIN 6.1 g/dL (6.3-8.3)
[2016-11-26 07:43] LABS: BASO # 0.1 K/uL (0.0-0.2); BASO % 0.9 % (0.0-2.0); EOS # 0.6 K/uL (0.0-0.7); EOS % 5.8 % (0.0-4.0); HEMATOCRIT 35.5 % (35.0-51.0); LYMPH # 1.4 K/uL (1.0-4.3); MEAN CELL VOLUME 91.6 fL (80.0-94.0); MEAN CORPUSCULAR HEMOGLOBIN 31.2 pg (27.0-31.0); MONO # 1.4 K/uL (0.0-0.8); MONO % 14.2 % (0.0-10.0); RED CELL DISTRIBUTION WIDTH 13.3 % (11.5-14.5); WHITE BLOOD COUNT 9.8 K/uL (4.8-10.8)
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
[2016-11-26] MEDS: (Novolin R) Insulin Human Regular 100 units/ml vial SC SCH ×4 (09:38→21:54)
[2016-11-26] MEDS: Saccharomyces Boulardi 250 mg Cap PO SCH ×2 (09:39→17:11)
[2016-11-26] MEDS: guaiFENesin 600 mg ER Tab PO SCH ×2 (09:39→17:11)
[2016-11-26] MEDS: Pantoprazole 40 mg EC Tab PO SCH (09:40)
[2016-11-26] MEDS: Cefepime IV 2 gm in Dextrose 2 GM/100 ML BAG IVPB SCH ×2 (11:00→21:20)
[2016-11-26] MEDS: Simethicone 80 mg Chewtab PO PRN (14:25)
--- NOTE | 2016-11-26 16:07 | CP.PCM.PN ---
Subjective - Date & Time of Evaluation Date of Evaluation: 11/26/16 Time of Evaluation: 03:00 - Subjective Subjective: dictated Objective - Vital Signs/Intake and Output Vital Signs (last 24 hours): Temp Pulse Resp BP Pulse Ox 97.6 F 95 H 20 128/79 96 11/26/16 08:00 11/26/16 08:00 11/26/16 08:00 11/26/16 09:39 11/26/16 08:00 - Medications Medications: Current Medications Acetaminophen (Tylenol 325mg Tab) 650 mg PO Q6 PRN PRN Reason: Fever >100.4 F Last Admin: 11/25/16 06:43 Dose: 650 mg Amlodipine Besylate (Norvasc) 5 mg PO BID [facility] Last Admin: 11/26/16 09:40 Dose: 5 mg Docusate Sodium (Colace) 100 mg PO TID [facility] Last Admin: 11/26/16 13:11 Dose: 100 mg Finasteride (Proscar) 5 mg PO DAILY [facility] Last Admin: 11/26/16 09:40 Dose: 5 mg Gabapentin (Neurontin) 300 mg PO TID [facility] Last Admin: 11/26/16 13:11 Dose: 300 mg Guaifenesin (Mucinex La) 600 mg PO BID [facility] Last Admin: 11/26/16 09:39 Dose: 600 mg Haloperidol (Haldol) 5 mg PO Q4H PRN PRN Reason: Agitation Last Admin: 11/25/16 08:37 Dose: 5 mg Haloperidol Lactate (Haldol) 5 mg IM Q4H PRN PRN Reason: Agitation,WHEN PO IS NOT PHILIP Heparin Sodium (Porcine) (Heparin) 5,000 units SC Q12 [facility] Last Admin: 11/26/16 09:39 Dose: 5,000 units Cefepime HCl (Maxipime Iv 2 Gm Premix) 2 gm in 100 mls @ 100 mls/hr IVPB Q12H [facility] Last Admin: 11/26/16 11:00 Dose: 100 mls/hr Clindamycin Phosphate (Cleocin In Normal Saline Addvantage) 600 mg in 50 mls @ 100 mls/hr IVPB Q8H [facility] Last Admin: 11/26/16 13:10 Dose: 100 mls/hr Insulin Glargine (Lantus) 15 unit SC HS [facility] Insulin Human Regular (Novolin R) 0 unit SC ACHS [facility] PRN Reason: Protocol Last Admin: 11/26/16 13:11 Dose: 8 unit Ipratropium [place] (Atrovent) 0.5 mg IH RQ6 PRN PRN Reason: Shortness of Breath Last Admin: 11/26/16 07:28 Dose: 0.5 mg Lisinopril (Zestril) 10 mg PO DAILY [facility] Last Admin: 11/26/16 09:39 Dose: 10 mg Lorazepam (Ativan) 1 mg IVP Q6H PRN PRN Reason: Anxiety Last Admin: 11/26/16 13:11 Dose: 1 mg Metoprolol Tartrate (Lopressor) 25 mg PO BID [facility] Last Admin: 11/26/16 09:39 Dose: 25 mg Mirtazapine (Remeron) 7.5 mg PO HS [facility] Last Admin: 11/25/16 22:22 Dose: 7.5 mg Ondansetron HCl (Zofran Inj) 4 mg IVP Q6H PRN PRN Reason: Nausea/Vomiting Last Admin: 11/26/16 14:25 Dose: 4 mg Pantoprazole Sodium (Protonix Ec Tab) 40 mg PO DAILY [facility] Last Admin: 11/26/16 09:40 Dose: 40 mg Saccharomyces Boulardii (Florastor) 250 mg PO BID [facility] Last Admin: 11/26/16 09:39 Dose: 250 mg Simethicone (Mylicon Chew Tab) 80 mg PO BID PRN PRN Reason: GI distress Last Admin: 11/26/16 14:25 Dose: 80 mg Tamsulosin HCl (Flomax) 0.4 mg PO DAILY [facility] Last Admin: 11/26/16 09:39 Dose: 0.4 mg Trazodone HCl (Desyrel) 100 mg PO HS [facility] Last Admin: 11/25/16 22:22 Dose: 100 mg Zinc Acetate/Diphenhydramine (Benadryl 1% Zinc Acetate -0.1%) 0 cre TOP TID PRN PRN Reason: Itching / Pruritus - Labs Labs: 11/26/16 07:06 11/26/16 07:06
--- NOTE | 2016-11-26 16:51 | PN ---
SUBJECTIVE: The patient is behaving much better now. He does complain of abdominal pain. He is breathing easier and told his AFBs are negative, but I could not see them on the computer. His x-ray is reported to be better, and at this time, he is behaving well. He is, however, with one-to-one. PHYSICAL EXAMINATION: HEENT: Head is atraumatic and normocephalic. NECK: Supple. LUNGS: Clear. No crackles or rales present. HEART: S1 and S2 is regular. ABDOMEN: Soft, nontender. No guarding. No rigidity present. EXTREMITIES: Have no edema. He is complaining of abdominal pain. Hence, I will take away the clindamycin and leave him on cefepime. If his 3 AFBs are negative, we can probably be sent on Vantin 200 b.i.d. I do not want to give him a clindamycin or Augmentin as he may developed diarrhea, he is already complaining of abdominal pain. We will follow however, gold QuantiFERON test was negative and PPD was negative, so we will just wait for the AFBs and then discontinue the isolation. He obviously will need followup of that CAT scan and the chest x-ray till he improves clinically. Should be followed up in the medical clinic. Tracey Nguyễn MD
[2016-11-26] MEDS: (Lantus) Insulin Glargine, Recombinant SC SCH (21:57)
[2016-11-27 07:42] LABS: BASO # 0.1 K/uL (0.0-0.2); BASO % 0.8 % (0.0-2.0); EOS # 0.6 K/uL (0.0-0.7); EOS % 5.8 % (0.0-4.0); HEMATOCRIT 36.4 % (35.0-51.0); LYMPH % 20.7 % (20.0-40.0); MEAN CORPUSCULAR HEMOGLOBIN 32.3 pg (27.0-31.0); MEAN CORPUSCULAR HGB CONC 35.1 g/dL (33.0-37.0); MEAN PLATELET VOLUME 8.4 fL (7.2-11.7); MONO # 1.3 K/uL (0.0-0.8); NRBC % 0.1 % (0.0-2.0); RED CELL DISTRIBUTION WIDTH 13.3 % (11.5-14.5); WHITE BLOOD COUNT 9.7 K/uL (4.8-10.8)
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
[2016-11-27 08:07] LABS: CHLORIDE 89 mmol/L (98-107); SODIUM 133 mmol/L (132-148)
[2016-11-27 08:08] LABS: POTASSIUM 4.7 mmol/L (3.6-5.2)
[2016-11-27 08:10] LABS: ALKALINE PHOSPHATASE 59 U/L (38-126); ALT/SGPT 26 U/L (21-72); AST/SGOT 17 U/L (17-59); BILIRUBIN,TOTAL 0.4 mg/dL (0.2-1.3); BLOOD UREA NITROGEN 21 mg/dL (9-20); CARBON DIOXIDE 33 mmol/L (22-30); GFR AFRICAN-AMERICAN > 60; GLUCOSE,RANDOM 348 mg/dL (75-110); PHOSPHOROUS 3.1 mg/dL (2.5-4.5); TOTAL PROTEIN 6.9 g/dL (6.3-8.3)
[2016-11-27 08:11] LABS: CALCIUM 9.1 mg/dl (8.6-10.4); MAGNESIUM 1.8 mg/dL (1.6-2.3)
[2016-11-27] MEDS: (Novolin R) Insulin Human Regular 100 units/ml vial SC SCH ×4 (08:22→23:32)
[2016-11-27] MEDS: guaiFENesin 600 mg ER Tab PO SCH ×2 (10:06→18:03)
[2016-11-27] MEDS: Pantoprazole 40 mg EC Tab PO SCH (10:07)
[2016-11-27] MEDS: Cefepime IV 2 gm in Dextrose 2 GM/100 ML BAG IVPB SCH ×2 (10:08→21:24)
[2016-11-27] MEDS: Saccharomyces Boulardi 250 mg Cap PO SCH ×2 (10:08→18:03)
[2016-11-27] MEDS: Ipratropium 0.02% Inhal Soln (0.5 mg/2.5 ml) UD IH PRN ×2 (16:21→19:24)
--- NOTE | 2016-11-27 21:03 | CP.PCM.PN ---
Subjective - Date & Time of Evaluation Date of Evaluation: 11/27/16 Time of Evaluation: 03:30 - Subjective Subjective: dictated Objective - Vital Signs/Intake and Output Vital Signs (last 24 hours): Temp Pulse Resp BP Pulse Ox 98.1 F 98 H 20 113/70 95 11/26/16 23:16 11/26/16 23:16 11/26/16 23:16 11/27/16 10:07 11/26/16 23:16 Intake and Output: 11/27/16 11/28/16 18:59 06:59 Intake Total 500 Balance 500 - Medications Medications: Current Medications Acetaminophen (Tylenol 325mg Tab) 650 mg PO Q6 PRN PRN Reason: Fever >100.4 F Last Admin: 11/27/16 18:03 Dose: 650 mg Amlodipine Besylate (Norvasc) 5 mg PO BID [facility] Last Admin: 11/27/16 18:04 Dose: 5 mg Docusate Sodium (Colace) 100 mg PO TID [facility] Last Admin: 11/27/16 18:03 Dose: 100 mg Finasteride (Proscar) 5 mg PO DAILY [facility] Last Admin: 11/27/16 10:07 Dose: 5 mg Gabapentin (Neurontin) 300 mg PO TID [facility] Last Admin: 11/27/16 18:03 Dose: 300 mg Guaifenesin (Mucinex La) 600 mg PO BID [facility] Last Admin: 11/27/16 18:03 Dose: 600 mg Haloperidol (Haldol) 5 mg PO Q4H PRN PRN Reason: Agitation Last Admin: 11/25/16 08:37 Dose: 5 mg Haloperidol Lactate (Haldol) 5 mg IM Q4H PRN PRN Reason: Agitation,WHEN PO IS NOT PHILIP Heparin Sodium (Porcine) (Heparin) 5,000 units SC Q12 [facility] Last Admin: 11/27/16 10:09 Dose: 5,000 units Cefepime HCl (Maxipime Iv 2 Gm Premix) 2 gm in 100 mls @ 100 mls/hr IVPB Q12H [facility] Last Admin: 11/27/16 10:08 Dose: 100 mls/hr Insulin Glargine (Lantus) 15 unit SC HS [facility] Last Admin: 11/26/16 21:57 Dose: 15 units Insulin Human Regular (Novolin R) 0 unit SC ACHS [facility] PRN Reason: Protocol Last Admin: 11/27/16 11:20 Dose: 8 unit Ipratropium [place] (Atrovent) 0.5 mg IH RQ6 PRN PRN Reason: Shortness of Breath Last Admin: 11/27/16 19:24 Dose: 0.5 mg Lisinopril (Zestril) 10 mg PO DAILY [facility] Last Admin: 11/27/16 10:07 Dose: 10 mg Lorazepam (Ativan) 1 mg IVP Q6H PRN PRN Reason: Anxiety Last Admin: 11/27/16 07:27 Dose: 1 mg Metoprolol Tartrate (Lopressor) 25 mg PO BID [facility] Last Admin: 11/27/16 10:07 Dose: 25 mg Mirtazapine (Remeron) 7.5 mg PO HS [facility] Last Admin: 11/26/16 21:20 Dose: 7.5 mg Ondansetron HCl (Zofran Inj) 4 mg IVP Q6H PRN PRN Reason: Nausea/Vomiting Last Admin: 11/26/16 14:25 Dose: 4 mg Pantoprazole Sodium (Protonix Ec Tab) 40 mg PO DAILY [facility] Last Admin: 11/27/16 10:07 Dose: 40 mg Saccharomyces Boulardii (Florastor) 250 mg PO BID [facility] Last Admin: 11/27/16 18:03 Dose: 250 mg Simethicone (Mylicon Chew Tab) 80 mg PO BID PRN PRN Reason: GI distress Last Admin: 11/26/16 14:25 Dose: 80 mg Tamsulosin HCl (Flomax) 0.4 mg PO DAILY [facility] Last Admin: 11/27/16 10:06 Dose: 0.4 mg Trazodone HCl (Desyrel) 100 mg PO HS [facility] Last Admin: 11/26/16 21:19 Dose: 100 mg Zinc Acetate/Diphenhydramine (Benadryl 1% Zinc Acetate -0.1%) 0 cre TOP TID PRN PRN Reason: Itching / Pruritus - Labs Labs: 11/27/16 07:25 11/27/16 07:25
[2016-11-27] MEDS: (Lantus) Insulin Glargine, Recombinant SC SCH (21:23)
--- NOTE | 2016-11-28 00:26 | PN ---
DATE: SUBJECTIVE: The patient says he is feeling better. He denies any complaints. He is breathing easier. T-max is 98.1 seems to be coming along. He does complain of some right leg pain. PHYSICAL EXAMINATION: VITAL SIGNS: Pulse is 98, blood pressure 156/69 that was yesterday, today it is 113/70, afebrile, remains in isolation. One of the AFB's is negative. LUNGS: I was told lungs are clear. Decreased breath sounds bilaterally. HEART: S1 and S2 is regular. ABDOMEN: Soft, nontender. No guarding. No rigidity present. EXTREMITIES: No edema. His 2 AFB's are negative. So, I think tomorrow he probably can go on Vantin. He had cavitary lesion slightly secondary to pneumonia, as the x-ray has improved. LABORATORY DATA: His white count is 9.7 today and his BUN remains 33, platelets are over 541. I do not want to give clindamycin, as he may develop diarrhea. He is elderly male and he needs follow up of the x-rays, Vantin for 7-10 days along with Bacid. Tracey Nguyễn MD
[2016-11-28] MEDS ORDERED: Ipratropium 0.02% Inhal Soln (0.5 mg/2.5 ml) UD IH ONE (04:00)
[2016-11-28] MEDS ORDERED: Albuterol HFA 90 mcg/actuation (8 g) INH STA ×2 (04:28→09:58)
[2016-11-28 07:09] LABS: BASO # 0.1 K/uL (0.0-0.2); BASO % 1.1 % (0.0-2.0); EOS # 0.6 K/uL (0.0-0.7); EOS % 5.7 % (0.0-4.0); HEMATOCRIT 38.3 % (35.0-51.0); LYMPH % 17.8 % (20.0-40.0); MEAN CELL VOLUME 92.5 fL (80.0-94.0); MEAN CORPUSCULAR HEMOGLOBIN 30.8 pg (27.0-31.0); MEAN CORPUSCULAR HGB CONC 33.3 g/dL (33.0-37.0); MEAN PLATELET VOLUME 8.2 fL (7.2-11.7); MONO # 1.5 K/uL (0.0-0.8); MONO % 13.5 % (0.0-10.0); RED CELL DISTRIBUTION WIDTH 13.7 % (11.5-14.5); WHITE BLOOD COUNT 11.3 K/uL (4.8-10.8)
[2016-11-28] MEDS: (Novolin R) Insulin Human Regular 100 units/ml vial SC SCH ×4 (09:20→21:39)
[2016-11-28] MEDS: Pantoprazole 40 mg EC Tab PO SCH (09:34)
[2016-11-28] MEDS: guaiFENesin 600 mg ER Tab PO SCH ×2 (09:34→18:23)
[2016-11-28] MEDS: Simethicone 80 mg Chewtab PO PRN ×2 (09:35→18:23)
[2016-11-28] MEDS: Saccharomyces Boulardi 250 mg Cap PO SCH ×2 (09:36→18:23)
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
[2016-11-28] MEDS ORDERED: Albuterol HFA 90 mcg/actuation (8 g) INH PRN (09:58)
[2016-11-28] MEDS: Cefepime IV 2 gm in Dextrose 2 GM/100 ML BAG IVPB SCH ×2 (10:22→21:39)
--- NOTE | 2016-11-28 12:41 | CARD ---
APPROVED REPORT EXAM: Two-dimensional and M-mode echocardiogram with Doppler and color Doppler. Other Information Quality : Good[employer]hythm : NSR INDICATION PNEUMONIA, R/O VEGETATION RISK FACTORS Hypertension Diabetes 2D DIMENSIONS IVSd1.4 (0.7-1.1cm)LVDd3.8 (3.9-5.9cm) PWd1.3 (0.7-1.1cm)LVDs1.9 (2.5-4.0cm) FS (%) 50.5 %LVEF (%)82.5 (>50%) M-Mode DIMENSIONS Left Atrium (MM)3.55 (2.5-4.0cm)Aortic Root3.40 (2.2-3.7cm) Aortic Cusp Exc.2.40 (1.5-2.0cm) Aortic Valve AoV Peak Gqngrtzo642.4cm/Matthew Peak GR.8mmHg Mitral Valve MV E Fzvcegzz08.3cm/sMV A Ofwrljmf09.3cm/sE/A ratio0.5 TDI E/Lateral E'0.0E/Medial E'0.0 Tricuspid Valve TR Peak [id number]/sTR Peak [id number] <Conclusion> normal size la,lv & ra rv. lvh with normal lv systolic funciton & wall motion & systolic funciton with lvef of 60-65%. lv diastolic dysfunction grade one. normal mitral,tv & pv. sclerotic trileaflet aortic valve. trace tr & pi. normal size aortic root. no pericardial effusion.
[2016-11-28] MEDS: Albuterol HFA 90 mcg/actuation (8 g) INH SCH ×2 (15:15→19:32)
[2016-11-28 16:42] VITALS: RESP 20
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
[2016-11-28] MEDS ORDERED: Lidocaine 5% Patch TD ONE (18:15)
[2016-11-28] MEDS: (Lantus) Insulin Glargine, Recombinant SC SCH (21:39)
[2016-11-29] MEDS: Albuterol HFA 90 mcg/actuation (8 g) INH SCH ×6 (02:00→15:50)
[2016-11-29 08:32] LABS: BASO # 0.1 K/uL (0.0-0.2); BASO % 1.2 % (0.0-2.0); EOS # 0.6 K/uL (0.0-0.7); EOS % 5.9 % (0.0-4.0); HEMATOCRIT 36.3 % (35.0-51.0); LYMPH # 1.9 K/uL (1.0-4.3); LYMPH % 19.4 % (20.0-40.0); MEAN CELL VOLUME 92.1 fL (80.0-94.0); MEAN CORPUSCULAR HEMOGLOBIN 31.7 pg (27.0-31.0); MEAN CORPUSCULAR HGB CONC 34.5 g/dL (33.0-37.0); MEAN PLATELET VOLUME 8.6 fL (7.2-11.7); MONO # 1.3 K/uL (0.0-0.8); MONO % 13.5 % (0.0-10.0); NRBC % 0.1 % (0.0-2.0); RED CELL DISTRIBUTION WIDTH 13.5 % (11.5-14.5); WHITE BLOOD COUNT 9.8 K/uL (4.8-10.8)
[2016-11-29 09:09] LABS: CHLORIDE 91 mmol/L (98-107)
[2016-11-29 09:10] LABS: POTASSIUM 4.6 mmol/L (3.6-5.2); SODIUM 132 mmol/L (132-148)
[2016-11-29 09:12] LABS: ALKALINE PHOSPHATASE 52 U/L (38-126); AST/SGOT 38 U/L (17-59); BILIRUBIN,TOTAL 0.5 mg/dL (0.2-1.3); CARBON DIOXIDE 31 mmol/L (22-30); GFR AFRICAN-AMERICAN > 60; TOTAL PROTEIN 7.5 g/dL (6.3-8.3)
[2016-11-29 09:13] LABS: ALT/SGPT 25 U/L (21-72); BLOOD UREA NITROGEN 25 mg/dL (9-20); CALCIUM 9.3 mg/dl (8.6-10.4); GLUCOSE,RANDOM 212 mg/dL (75-110)
[2016-11-29] MEDS: (Novolin R) Insulin Human Regular 100 units/ml vial SC SCH ×2 (10:27→13:41)
[2016-11-29] MEDS: Saccharomyces Boulardi 250 mg Cap PO SCH (10:28)
[2016-11-29] MEDS: Pantoprazole 40 mg EC Tab PO SCH (10:28)
[2016-11-29] MEDS: guaiFENesin 600 mg ER Tab PO SCH (10:28)
[2016-11-29] MEDS: Cefepime IV 2 gm in Dextrose 2 GM/100 ML BAG IVPB SCH (10:34)
--- NOTE | 2016-11-29 13:54 | CP.PCM.DIS ---
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 (NONREACTIVE) 11/26/16 16:44 Hepatitis A IgM Ab Negative (NEGATIVE) 11/26/16 07:06 Hep Bs Antigen Negative (NEGATIVE) 11/26/16 07:06 Hep B Core IgM Ab Negative (NEGATIVE) 11/26/16 07:06 Hepatitis C Antibody Negative (NEGATIVE) 11/26/16 07:06 HIV 1&2 Ag/Ab, 4th Gen Nonreactive (Nonreactive) 11/22/16 07:24 Influenza Typ A,B (EIA) Negative for flu a/b (NEGATIVE) 11/14/16 18:28 Ur L.pneumophila Ag Negative (NEGATIVE) 11/14/16 15:52 Mycoplasma pneumon IgG <=0.90 (<=0.90) 11/15/16 07:47 Mycoplasma pneumon IgM 202 U/mL (<770) 11/15/16 07:47 TB Test (QFT) Nil 0.10 IU/mL 11/22/16 07:33 TB Test Mitogen - Nil 0.65 IU/mL 11/22/16 07:33 TB Test TB - Nil 0.05 IU/mL 11/22/16 07:33 TB Test (QFT) Negative (Negative) 11/22/16 07:33 Attending/Attestation - Attestation I have personally seen and examined this patient.: Yes I have fully participated in the care of the patient.: Yes I have reviewed all pertinent clinical information, including history, physical exam and plan: Yes Notes (Text): 11/29/16 16:17 Patient was seen and examined with the resident. Exam, Assessment and Plan, Discharge Plan were thoroughly gone over with the resident. Discharge summary was faxed to Dr. Frias office. Allen Reid D.O.
[2016-11-29 15:31] VITALS: BP 117/74; PULSE 86; TEMP 97.6; O2SAT 95
== END 2016-11-29 18:00 | disposition home or self-care (01) | DRG 541 ==
LOC: C.ER 09:47 → C.9E 13:04 → C.3T 14:35 → C.5S 11-22 13:09
PROVIDERS: ADMIT Family Medicine; ATTEND Family Medicine
DX: J18.9 Pneumonia, unspecified organism (principal); G92 Toxic encephalopathy; E87.2 Acidosis; F05 Delirium due to known physiological condition; E11.40 Type 2 diabetes mellitus with diabetic neuropathy, unspecified; N39.0 Urinary tract infection, site not specified; F11.90 Opioid use, unspecified, uncomplicated; F13.239 Sedative, hypnotic or anxiolytic dependence with withdrawal, unspecified; F17.210 Nicotine dependence, cigarettes, uncomplicated; M94.0 Chondrocostal junction syndrome [Tietze]; L29.9 Pruritus, unspecified; K59.00 Constipation, unspecified; J45.909 Unspecified asthma, uncomplicated; N40.0 Benign prostatic hyperplasia without lower urinary tract symptoms; I10 Essential (primary) hypertension; Z16.24 Resistance to multiple antibiotics; Y95 Nosocomial condition; R09.1 Pleurisy; N28.9 Disorder of kidney and ureter, unspecified; K21.9 Gastro-esophageal reflux disease without esophagitis; R97.20 Elevated prostate specific antigen [PSA]; Z79.84 Long term (current) use of oral hypoglycemic drugs; Z79.899 Other long term (current) drug therapy